=== PATIENT | female | born 1985 | race Caucasian/White ===

== ENCOUNTER 2024-06-02 11:13 | Outpatient (CLI) | payer OTHER, SELFPAY ==
--- NOTE | 2024-06-02 11:32 | ECG_ITS ---
Test Date: 2024-06-02 11:42:37 Measurements Intervals [place] Rate: 66 P: -24 MO: 131 QRS: 3 QRSD: 104 T: -3 QT: 402 QTc: 422 Interpretive Statements SINUS RHYTHM BORDERLINE R WAVE PROGRESSION, ANTERIOR LEADS BORDERLINE T WAVE ABNORMALITY- INFERIOR LEADS BORDERLINE ECG No previous ECG available for comparison Electronically Signed On 06-02-2024 12:57:03 CDT by Pedro Luis Almanzar D.O.
[2024-06-02 11:39] LABS: Hematocrit 38.7 % (37.0-47.0); Hemoglobin 12.6 g/dL (12.0-15.0); Mean Corpuscular HGB Conc 32.6 g/dl (32-36); Mean Corpuscular Hemoglobin 27.6 pg (26-34); Mean Corpuscular Volume 84.7 fl (80-100); Mean Platelet Volume 10.2 fl (7.4-10.4); Platelet Count Result 297 k/mm3 (150-375); Red Blood Count 4.57 M/mm3 (4.2-5.4); Red Cell Distribution Width 13.7 % (11.5-14.5); White Blood Count 7.3 K/mm3 (4.5-10.0)
[2024-06-02 11:42] LABS: Add Urine Microscopic? NO; Appearance Urine Clear (Clear); Bilirubin Urine Negative (Negative); Blood Urine Negative (Negative); Color Urine Yellow (Yellow); Glucose Urine UA Negative (Negative); Ketones Urine Negative (Negative); Leukocyte Esterase Ur Negative LEU/UL (Negative); Nitrate Urine Negative (Negative); Protein Urine Negative (Negative); Specific Grav Ur 1.009 (1.001-1.035); Urobilinogen Urine 0.2 mg/dL (<2.0)
[2024-06-02 11:59] LABS: Alanine Aminotransferase 25 U/L (6-35); Alkaline Phosphatase 41 U/L (38-126); Anion Gap 12 mmol/L (4-12); Aspartate Amino Transferase 27 U/L (14-36); Bilirubin,Total 0.2 mg/dL (0.2-1.3); Blood Urea Nitrogen 8 mg/dL (7-17); Calcium 9.1 mg/dL (8.4-10.2); Carbon Dioxide 22 mmol/L (22-30); Chloride 104 mmol/L (98-107); Estimated Glomerular Filt Rate > 60; Glucose 93 mg/dL (65-110); Potassium 3.7 mmol/L (3.4-5.0); Sodium 138 mmol/L (137-145)
[2024-06-02 12:05] LABS: Hemoglobin A1C 5.5 % (<5.7)
[2024-06-02 12:26] LABS: Syphilis IgG/IgM Antibody Negative (Negative)
[2024-06-02 12:28] LABS: Rubella IgG Antibody 13.2 IU/ML
--- OUTSIDE RECORDS SUMMARY | 2024-06-02 12:36 | XMS_ITS | Clinical Summary ---
Author Organization [facility] Address [facility] [place] [address] Care Team Providers Care Barnworker Groom Name Role Phone Garry Balbuena MD Primary Care Provider [phone] Red Castro MD Unavailable [phone] Allergies No known active allergies Medications ibuprofen 200 MG tabletIndication s:OTC Take 200 mg by mouth every 6 (six) hours as needed for Pain. Active Active Problems Problem Noted Date Diagnosed Date Trigger thumb of both hands 04/20/2019 Bilateral carpal tunnel syndrome 01/16/2018 Primary dysthymia 02/29/2016 Resolved Problems Problem Noted Date Diagnosed Date Resolved Date Fatigue 07/01/2013 04/20/2019 Palpitations 04/20/2019 Immunizations Immunization Administration Dates Next Due Influenza Adult (Generic) 11/17/2017(Deferred: P atient Refused) Family History Medical History Relation Comments Heart Disease Maternal Grandfather Hypertension Maternal Grandfather Heart Disease Maternal Grandmother Diabetes Paternal Grandmother Hypertension Paternal Grandmother Stroke Paternal Grandmother Relation Status Comments Father Alive Maternal Grandfather (Age 75) Maternal Grandmother (Age 75) Mother Alive Paternal Grandfather (Age 75) Paternal Grandmother (Age 76) Sister 1 Alive Sister 2 Alive Sister 3 Alive Social History Tobacco Use Types Packs/Day Years Used Date Smoking Tobacco: Never Smokeless Tobacco: Never Alcohol Use Standard Drinks/Week Comments Yes 0 (1 standard drink = 0.6 oz pur e alcohol) 3-6 Beers per week PHQ-2 Answer Date Recorded PHQ-2 Score 0 01/24/2019 Comments No Sex and Gender Information Value Date Recorded Sex Assigned at Not on file Legal Sex Female 7:57 PM CDT Gender Identity Not on file Sexual Orientation Not on file 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 Not on file Not on fi le Last Filed Vital Signs Vital Sign Reading Time Taken Comments Blood Pressure 112/82 04/20/2019 8:30 AM PICKER MACHINE OPERATOR Pulse 64 04/20/2019 8:30 AM PICKER MACHINE OPERATOR Temperature 36.4 C (97.6 F) 04/20/2019 8:30 AM PICKER MACHINE OPERATOR Respiratory Rate 18 04/20/2019 8:30 AM PICKER MACHINE OPERATOR Oxygen Saturation 100% 04/20/2019 8:30 AM PICKER MACHINE OPERATOR Inhaled Oxygen Concentration - - Weight 70.4 kg (155 lb 3.2 oz) 04/20/2019 8:30 A M PICKER MACHINE OPERATOR Height 162.6 cm (5' 4 ) 04/20/2019 8:30 AM PICKER MACHINE OPERATOR Body Mass Index 26.64 04/20/2019 8:30 AM PICKER MACHINE OPERATOR Plan of Treatment Health Maintenance Due Date Last Done Comments Cervical Cancer Screening Pa p Smear (Age 30 to 64) Every 3 Years 1985 Hepatitis C 2003 Hepatitis B Vaccines (1 of 3 - 19+ 3-dose series) 2004 Annual Physical 04/19/2020 04/20/2019 COVID-19 Vaccine ( - 2023-2 5 season) 2023 Cervical Cancer Screening Pa p with HPV Testing (Age 30 to 64) Every 5 Years 04/13/2025 04/13/2020 Cervical Cancer Screening with HPV 04/13/2025 DTaP, Tdap and Td Vaccines ( 1 - Tdap) 04/19/2025 Postponed from 03/31 (Awaiting Documentation) HPV Vaccines Aged Out No longer eligi ble based on patient's age to complete this topic Meningococcal B Vaccine Aged Out No l onger eligible based on patient's age to complete this topic Meningococcal Vaccine Aged Out No umm kacey eligible based on patient's age to complete this topic Pneumococcal Vaccine: Pediat rics (0 to 5 Years) and At-Risk Patients (6 to 49 Years) Aged Out No longer eligi ble based on patient's age to complete this topic RSV Immunizations Under 20 Months Aged Out No longer eligible based on patient's age to complete this topic Procedures Procedure Name Priority Date/Time Associated Diagnosis Comments OUTSIDE CYTOPATH CERV/VAG INTERPRET (PAP) 04/13/2020 from Last 3 Months or Most Recently Relevant to Health Maintenance Results * PAP SMEAR WITH HPV (04/13/2020) 04/13/2020 Narrative 04/13/2020 Ordered by an unspecified provider. us Documents Scanned SCANNING Final Result from Last 3 Months or Most Recently Relevant to Health Maintenance Insurance Care Teams Barnworker Groom Relationship Specialty Start Date End Date Garry Balbuena MD [address] [facility] [address] [place] [address] PCP - General FAMILY PRACTICE 01/14/18 Red Castro MD [facility]. [address] [place] [address] Churdan Java Lead Engineer CARDIOVASCULAR DISEASE 09/30/18
--- OUTSIDE RECORDS SUMMARY | 2024-06-02 12:36 | XMS_ITS | Referral Summary ---
Author Organization [facility] [address] Address [address] [place] [id number] Care Team Providers Care Flooring Installer Name Role Phone Donnie Anne MD Primary Care Provider [phone] Yasmany Toribio MD Unavailable [phone] Allergies No known active allergies Medications Pregnyl 10,000 unit injection 07/08/2022 Acti ve Isibloom 0.15-0.03 mg per tablet 07/21/2023 Activ e estradioL (ESTRACE) 2 mg tablet 06/12/2023 Active Menopur 75 unit recon soln 05/02/2023 Active Active Problems Problem Noted Date Diagnosed Date Well adult exam 10/12/2021 Assessment & Plan (10/13/2023 1:31 PM CDT): A(n) yearly well adult visit has been performed today. Kristi Cassidy is not up to date on screening tests. She is in need of hep b, c and Cholesterol screening. She is not up to date on needed preventative vaccinations; She is in need of Influenza. We discussed healthy lifestyle habits, educational material has been given. Medications reviewed, changes documented as per the medical record and discussed with patient along with risks vs benefits. Specific topics reviewed: drugs, ETOH, and tobacco, importance of regular dental care, importance of regular exercise, importance of varied diet, limit TV, media violence, minimize junk food, and seat belts. Return in 1 year Assessment & Plan (10/10/2022 1:23 PM CDT): A(n) yearly well adult visit has been performed today. Kristi Cassidy is not up to date on screening tests. She is in need of Cholesterol screening. She is not up to date on needed preventative vaccinations; She is in need of Covid-19 (booster). We discussed healthy lifestyle habits, educational material has been given. Medications reviewed, changes documented as per the medical record and discussed with patient along with risks vs benefits. Return in 1 year Assessment & Plan (10/12/2021 4:53 PM CDT): A(n) initial well visit to establish care has been performed today. Kristi Cassidy is up to date on screening tests. She is in need of None- no screening indicated at this time. She is not up to date on needed preventative vaccinations; She is in need of Tdap/Td. Injury of right shoulder 10/12/2021 Assessment & Plan (10/12/2021 4:53 PM CDT): PT and/or ortho if not improving Xray ordered Will consider MRI if not improving Naproxen PRN for inflammation; may use ice, heat, etc as adjuncts Rest from weight training for 2 weeks at least Trigger thumb of both hands 04/20/2019 Bilateral carpal tunnel syndrome 01/16/2018 Primary dysthymia 02/29/2016 Immunizations Immunization Administration Dates Next Due Influenza, Unspecified 10/10/2022(Deferr ed: Patient Refused),02/17/2022(Deferred: Patient Refused),02/17/2021(Deferred: Patient Refused) Tdap 08/02/2015 Social History Tobacco Use Types Packs/Day Years Used Date Smoking Tobacco: Never Smokeless Tobacco: Never Tobacco Cessation:Counseling Given: Not Answered AUDIT-C Answer Date Recorded Q1: How often do you have a drink containing alc ohol? 2-3 times a week 10/13/2023 Q2: How many drinks containi ng alcohol do you have on a typical day when you are drinking? 1 or 2 10/13/2023 Q3: How often do you have si x or more drinks on one occasion? Less than monthly 10/13/2023 PHQ-2 Answer Date Recorded PHQ-2 Total Score (If total score is 3 or more points, staff should administer the PHQ-9) 0 10/13/2023 Exercise Vital Sign Answer Date Recorde d On average, how many days pe r week do you engage in moderate to strenuous exercise (like a brisk walk)? 2 days 10/10/2021 On average, how many minutes do you engage in exercise at this level? 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 Not on file Last Filed Vital Signs Vital Sign Reading Time Taken Comments Blood Pressure 112/80 10/13/2023 1:18 PM CDT Pulse 75 10/13/2023 1:18 PM CDT Temperature 36.2 C (97.1 F) 10/13/2023 1:18 PM CDT Respiratory Rate 14 10/13/2023 1:18 PM CDT Oxygen Saturation 98% 10/13/2023 1:18 PM CDT Inhaled Oxygen Concentration - - Weight 81.6 kg (180 lb) 10/13/2023 1:18 PM CDT Height 162.6 cm (5' 4 ) 10/13/2023 1:18 PM CDT Body Mass Index 30.9 10/13/2023 1:18 PM CDT Plan of Treatment Not on file Procedures Procedure Name Priority Date/Time Associated Diagnosis Comments HEPATITIS C ANTIBODY Routine 10/13/2023 2:30 PM CDT Need for hepatitis C screening test HM PAP SMEAR WITH HPV Routine 04/13/2020 from Last 3 Months or Most Recently Relevant to Health Maintenance Results * Hepatitis C antibody Blood (10/13/2023 2:30 PM CDT) Hep C Ab Nonreactive Nonreactive Comment: Interpretive Data Nonreactive: Antibodies to HCV not detected. Does NOT exclude the possibility of recent exposure to HCV. Equivocal: Equivocal for HCV antibodies. Supplemental molecular testing will be automatically performed to determine infection status in accordance with current CDC screening recommendations. Reactive: Positive for HCV antibodies. This may represent current or past HCV infection. Supplemental molecular testing will be automatically performed to determine current infection status in accordance with current CDC screening recommendations. Interpretive data was last revised on 2019. Blood 10/13/2023 2:30 PM CDT 10/13/2023 9:03 PM CDT Donnie Anne MD LAB MICROBIOLOGY - GENERAL ORDERABLES Final Result Performing Organization Address City/[place] [address] [address] [place] [address] * HM PAP SMEAR WITH HPV (04/13/2020) Scribed Pap Smear w/HPV Normal Narrative Radha Guerrero MA - 04/13/2020 In care everywhere Historical Provider HEALTH MAINTENANCE Final Result from Last 3 Months or Most Recently Relevant to Health Maintenance Insurance CLAIMS [facility] CLAIMS Care Teams Flooring Installer Relationship Specialty Start Date End Date Donnie Anne MD [address] [place], [place] [id number] PCP - General Family Medicine 10/10/21 Yasmany Toribio MD [address] [facility] [address] [facility] [[email or web address] [address] [place], [place] [phone] Referring Physician Obstetrics and Gynecology 10/10/21
--- OUTSIDE RECORDS SUMMARY | 2024-06-02 12:36 | XMS_ITS | Encounter Summary ---
Author Organization [facility] Address [address] [place] [address] Care Team Providers Care Chief Data Officer Name Role Phone Bryant Saleh MD Primary Care Provider [phone] Garry Balbuena MD Primary Care Provider [phone] Red Castro MD Unavailable [phone] Encounter Details Date Type Department Care Team (Late st Contact Info) Description 11/07/2017 Abstract [facility] Family Medicine - [place] [address] [place] [id number] Garry Balbuena MD [address] [facility] [address] [place], [place] [id number] Social History Tobacco Use Types Packs/Day Years Used Date Smoking Tobacco: Never Assessed Comments Unknown Sex and Gender Information Value Date Recorded Sex Assigned at Not on file Legal Sex Female 7:57 PM CDT Gender Identity Not on file Sexual Orientation Not on file documented as of this encounter Plan of Treatment Not on file documented as of this encounter Visit Diagnoses Not on filedocumented in this encounter Care Teams Chief Data Officer Relationship Specialty Start Date End Date Bryant Saleh MD [address] [facility] [address] '[place], [place] [phone] PCP - General 02/22/16 01/13/18 Garry Balbuena MD [address] [facility] [address] [place] [address] PCP - General FAMILY PRACTICE 01/14/18 Red Castro MD [facility]. [address] [place], [place] [phone] Gabby Manager Investigations CARDIOVASCULAR DISEASE 09/30/18 documented as of this encounter
--- OUTSIDE RECORDS SUMMARY | 2024-06-02 12:36 | XMS_ITS | Continuity of Care Document ---
Author Organization [facility] Address [address] [place] [address] [place] [address] Phone Care Team Providers Care Equity Holder Name Role Phone Ricky Alfaro MD Unavailable Unavailable Allergies, Adverse Reactions, Alerts Substance Reaction Status Criticality No Known Allergies Active No Inform ation Medications Medication Instructions Dosage Effective Dates (start - stop) Status Comments No Drug Therapy Prescribed Procedures Procedure Date PREV VISIT, NEW, AGE 18-39 Advance Directives Directive Yes / No Effective Date File Name No Information Encounters Encounter Description Practice Location Reason(s) For Visit Diagnoses Date Provider Providers Copied on Encounter [facility], [address], [place], [place], [id number], [place] tel:[phone] [facility] No Information Dominic García. [address], [place], [place], [id number], [place]. tel:[phone] Referring Provider: Ricky Alfaro, [address], [place], [place], [id number]. tel:[phone] PREV VISIT, NEW, AGE 18-39 [facility], [address], [place], [place], [id number], [place] tel:[phone] [facility] Medicine Physical (chief complaint) Encntr for general adult medical exam w/o abnormal findings Dominic García. [address], [place], [place], [id number], [place]. tel:[phone] Referring Provider: Ricky Alfaro, [address], [place], [place], [id number]. tel:[phone] Family History Family Member Type Diagnosis Age At Onset Mother Problem (finding) Alive and well Sister Problem (finding) Alive and well Father Problem (finding) Alive and well Payers Payer name Insurance type Covered republican ID Authormisbah tinancy(s) No Information Social History Type Description Quantity Date Captured Comments Alcohol Use Details Unknown Caffeine Use Details Unknown Tobacco Use Status No Information Smoking Status No Information Sex Female Chief Complaint And Reason For Visit No Information Plan Of Treatment Date Type Action Status No Information History Of Present Illness Encounter Date Complaint History Of Prese nt Illness Physical Pt needs annual physical. her previous physician retired Pt needs to establish care Pt does not take meds and she is very healthy overall Pt does not have any active concern currenlty. Medications Administered Medication Instructions Dosage Effective Dates (start - stop) Status Comments No Drug Therapy Prescribed Instructions Date Instruction Additional Infor mation Prescribed Activity and Exercise Education Related to Dietary Surveillance and Counseling Prescribed Diet Educ ation/Lifestyle Education Regarding Diet Related to Dietary Surveillance and Counseling Perform monthly self breast examinations. Related to Encntr for general adult medical exam w/o abnormal findings Increase activity. Related to En cntr for general adult medical exam w/o abnormal findings Assessments Type Assessment Date No Information
--- OUTSIDE RECORDS SUMMARY | 2024-06-02 12:36 | XMS_ITS | Clinical Summary ---
Author Organization 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 [address] Address [address] [place] [address] Care Team Providers Care Box Blank Machine Operator Helper Name Role Phone Donnie Anne MD Primary Care Provider [phone] Yasmany Toribio MD Unavailable [phone] Allergies No known active allergies Medications Pregnyl [...] Refused),02/17/2022(Deferred: Patient Refused),02/17/2021(Deferred: Patient Refused) Tdap 08/02/2015 Surgical History Surgery Date Site/Laterality Comments CARPAL TUNNEL RELEASE 02/17/2018 - 02/16/2019 Bilateral Family History Medical History Relation Name Comments No Known Problems Father Heart disease Maternal Grandfather Coronary artery disease Maternal Grandmother Heart disease Maternal Grandmother No Known Problems Mother Diabetes Paternal Grandfather Diabetes Paternal Grandmother No Known Problems Sister 1 No Known Problems Sister 2 No Known Problems Sister 3 Relation Name Status Comments Father Alive Maternal Grandfather Maternal Grandmother Mother Alive Paternal Grandfather Paternal Grandmother Sister 1 Alive Sister 2 Alive Sister [...] file Not on file Not on file Obstetrics History Last Filed Vital Signs Vital Sign Reading [...] 10/13/2023 1:18 PM CDT Plan of Treatment Health Maintenance Due Date Last Done Comments Cervical Cancer Screening 04/13/2021 04/13/2020 Covid-19 Vaccine (2023-03 5 season) 2023 09/18/2020, 08/27/2020 Depression Screening 10/12/2024 10/13/2023, 10/10/2022, 10/10/2021 Regular Well Visit/Exam 18-64 10/12/2024, 10/10/2022, 10/10/2021 Varicella Vaccines (1 of 2 - 13+ 2-dose series) 10/12/2024 Postponed from 03/31 (Patient declined, but will receive in the future) Influenza Vaccine (Season Ended) 2024 DTaP/Tdap/Td Vaccine (2 - Td or Tdap) 08/01/2025 08/02/2015 Hepatitis B Screening Completed 10/13/2023 Hepatitis C Screening Completed 10/13/2023 HPV Vaccines Aged Out No longer eligi ble based on patient's age to complete this topic Pneumococcal vaccine <65 Aged Out No longer eligible based on [...] 2:30 PM CDT 10/13/2023 9:03 PM CDT us Donnie Anne MD LAB MICROBIOLOGY - GENERAL ORDERABLES Final Result Performing Organization Address City/State/ZIP [place] Phone Number [place] [phone] [address] [place] [address] * PAP SMEAR WITH HPV (04/13/2020) Scribed Pap Smear w/HPV Normal Narrative Radha Guerrero MA - 04/13/2020 In care everywhere us Historical Provider HEALTH MAINTENANCE Final Result from Last 3 Months or Most Recently Relevant to Health Maintenance Insurance CLAIMS CLAIMS Care Teams Box Blank Machine Operator Helper Relationship Specialty Start Date End Date Donnie Anne MD [address] [place] [address] PCP - General Family Medicine 10/10/21 Yasmany Toribio MD [address] [facility] [address] [facility] [address] [place], [place] [phone] Referring Physician Obstetrics and Gynecology 10/10/21
--- OUTSIDE RECORDS SUMMARY | 2024-06-02 12:36 | XMS_ITS | Clinical Summary ---
Author Organization [facility] Address [address] [place] [address] Care Team Providers Care Buildings And Grounds Director Name Role Phone [facility], [address] [place] [address] Primary Care Prov ider Unknown, Provider Unavailable Unavailable Source Comments [facility],non-owned Affiliates and Associated Physician Practices is amultiple site organization consisting of ambulatory clinics and hospital sitesin [place] and [place]. This disclosure is being madepursuant to the Care Everywhere program and may not contain all information available regarding this patient. Last updated 17.[facility] Allergies No known active allergies Medications * Be aware that medications may not be up to date on this document. Alwaysverify current medications with the patient. No known medications Active Problems No known active problems Social History Tobacco Use Types Packs/Day Years Used Date Smoking Tobacco: Never Smokeless Tobacco: Never Comments No Sex and Gender Information Value Date Recorded Sex Assigned at Not on file Legal Sex Female 11:53 AM FIRE ENGINE OPERATOR Gender Identity Not on file Sexual Orientation Not on file Last Filed Vital Signs Vital Sign Reading Time Taken Comments Blood Pressure 130/80 06/05/2020 3:02 PM CDT Pulse 68 06/05/2020 3:02 PM CDT Temperature 36.7 C (98 F) 06/05/2020 3:02 PM CDT Respiratory Rate 20 06/05/2020 3:02 PM CDT Oxygen Saturation 99% 02/09/2017 3:06 PM FIRE ENGINE OPERATOR Inhaled Oxygen Concentration - - Weight 65.8 kg (145 lb) 02/09/2017 3:06 PM FIRE ENGINE OPERATOR Height 160 cm (5' 3 ) 02/09/2017 3:06 PM FIRE ENGINE OPERATOR Body Mass Index 25.69 02/09/2017 3:06 PM FIRE ENGINE OPERATOR Plan of Treatment Health Maintenance Due Date Last Done Comments HIV SCREENING 2000 HEPATITIS C SCREENING 03/27/2003 DTAP/TDAP/TD VACCINES (1 - Tdap) 2004 HEPATITIS B VACCINE (1 of 3 - 19+ 3-dose series) 2004 COVID-19 VACCINE (1 - 2023-2 5 season) 2023 DEPRESSION SCREENING 02/18/2024 INFLUENZA VACCINE (Season Ended) 2024 ZOSTER VACCINE (1 of 2) 2035 HIB VACCINE Aged Out No longer eligi ble based on patient's age to complete this topic HPV VACCINE Aged Out No longer eligi ble based on patient's age to complete this topic MENINGOCOCCAL (Group B) VACC INE SHARED DECISION-MAKING Aged Out No longer eligibl e based on patient's age to complete this topic MENINGOCOCCAL GROUPS A/C/Y/W VACCINE Aged Out No longer eligible b ased on patient's age to complete this topic PNEUMOCOCCAL VACCINE Aged Out No long er eligible based on patient's age to complete this topic Insurance [employer] Care Teams Buildings And Grounds Director Relationship Specialty Start Date End Date [address] [facility] [address] [place] [address] PCP - General Family Medicine 02/09/17 Unknown, Provider [address] [place] [address] 02/09/17
--- OUTSIDE RECORDS SUMMARY | 2024-06-02 12:36 | XMS_ITS | Continuity of Care Document ---
Author Name [facility] Organization [facility] Care Team Providers Care Community Health Planning Director Name Role Phone [facility] Unavailable Unavailable Problems Combined list of problems from [facility] and [facility] facilities. It does not include entries that were removed or entered in error. Problem Status Onset Date Problem Type Date of Resolution Comments Source Pain of right shoulder joint Active 4 Diagnosis [facility] Aisha Somatic dysfunction of cervical region Active 4 Diagnosis [facility] Aisha Somatic dysfunction of lumbar region Active [address] [place] [address] Aisha Cervicalgia Active 4 Diagnosis 002-[facility] [place] Headache Active [address] [place] [address] [place] Somatic dysfunction of thoracic region Active 4 Diagnosis 002-[facility] [place] Cervicalgia Active 4 Diagnosis 002-[facility] [place] Headache Active [address] [place] [address] [place] Cervicalgia Active Condition [address] [place] [address] [place] Headache Active Condition [address] [place] [address] [place] Pain in right shoulder Active Diagnosis 0024A-[facility] [place] Personal history of other diseases of the musculoskeletal system and connective tissue Active Diagnosis 0024A-[facility] [place] Activity, free weights Active Diagnosis [address] [place] [address] [place] Medications Combined list of outpatient medications from [facility] and [facility] facilities.Medications provided include 1) outpatient medications from the last 15 months, and 2) patient-reported medications. Medication Details Route Status Patient Instructions Prescription Expires Prescription Number Last Dispense Date Ordering Provider Order Date Order Qty Source ibuprofen 800 mg oral tablet 1 tab(s), Oral, TID, # 90 tab(s), 0 total refill(s ), Acute, 08/12/24 2:00:00 AM CDT, Pharmacy : [facility] Oral (given by mouth) Ordered 08/12/2024 4 2023 [facility] oral [facility] 2 tab(s), Oral, QID, X 7 days, # 56 tab(s), 0 total refill(s ), Acute, Pharmacy : [facility] Oral (given by mouth) Complet ed 07/31/2023 4 2023 56.0 0024C-N [facility] on Results Combined list of recent chemistry, hematology and other laboratory results from [facility] and [facility], ranging from 15 months to all on record, depending upon the facility. Order Name Results Value Reference Range Date Interpretation Specimen Comments Source Chemistry POC U HCG Negative (07/31/23 11:58 AM) 07/[address] [place] [address] Vital Signs Combined list of inpatient and outpatient Vital Signs from [facility] and [facility], ranging from 12 months to all on record, depending upon the facility. Vital Sign Value Date Comments Source BP Site Right arm 07/24/2023 15:03:[address] [place] [address] [place] Mean Arterial Pressure, Calc 106 mm[Hg] 07/24/2023 15:03:[address] [place] [address] [place] Respiratory Rate 14 br/min 07/24/2023 15:03:[address] [place], [place] [address]on Blood Pressure Manual Automatic 07/24/2023 15:03:[address] [place] [address] [place] Peripheral Pulse Rate 91 bpm 07/24/2023 15:03:[address] [place] [address] Aisha Systolic Blood Pressure 137 mm[Hg] 07/24/19 24 15:03:[address] [place], [place] [address]on Diastolic Blood Pressure 91 mm[Hg] 024 15:03:[address] [place] [address] Aisha Temperature Oral 36.7 Nereida 07/24/2023 15:03:[address] [place] [address] [place] Peripheral Pulse Rate 85 bpm 07/31/2023 17:34:00 [facility] Aisha Systolic Blood Pressure 142 mm[Hg] 07/31/19 24 17:34:[address] [place] [address] [place] Diastolic Blood Pressure 90 mm[Hg] 024 17:34:[address] [place] [address] [place] Temperature Oral 36.6 Nereida 07/31/2023 17:34:[address] [place] [address] Aisha Respiratory Rate 18 br/min 07/31/2023 17:34:[address] [place] [address] [place] Mean Arterial Pressure, Calc 97 mm[Hg] 07/29/2023 15:16:[address] [place] [address] [place] BP Site Left arm 07/29/2023 15:16:[address] [place] [address] Aisha Temperature Oral 36.7 Nereida 07/29/2023 15:16:[address] [place] [address] [place] Peripheral Pulse Rate 74 bpm 07/29/2023 15:16:[address] [place] [address] Blood Pressure Manual Automatic 07/29/2023 15:16:[address] [place] [address] Aisha Systolic Blood Pressure 129 mm[Hg] 07/29/19 24 15:16:[address] [place] [address] Aisha Diastolic Blood Pressure 81 mm[Hg] 024 15:16:[address] [place] [address] Respiratory Rate 16 br/min 07/29/2023 15:16:[address] [place] [address] [place] Encounters Combined list of: 1) Encounters from [facility] facilities going backup to the last 18 months, not all VA inpatient encounters are included; 2) Encounters from the Department [facility] facilities going backup to 280 months. Location Location Details Encounter Type Encounter Number Reason For Visit Attending Provider ADM Date DC Date Status Disposition Source [address] [place] [address] Clinic [id number] Cervica lgia,He adache, unspeci fied FRANCIE LAMONTDAVE NPORT 07/23 Discharge Disposition: Home or Self Care [facility] [address] [place] [address] Clinic [id number] Segment al and somatic dysfunc tion of cervica l region, Segment al and somatic dysfunc tion of lumbar region, Cervica lgia,He adache, unspeci fied,Se gmental and somatic dysfunc tion of thoraci c region RK TEIXEIRA 07/28 Discharge Disposition: Home or Self Care [facility] Emergency [id number] Pain in right shoulde r,Perso nal history of other disease s of the musculo skeleta l system and connect cain tissue, Activit y, free weights ,Pain in right shoulde r CLAY ANNPARALES 07/30 Discharge Disposition: Home or Self Care [facility] [facility] Procedures Combined list of: 1) Procedures from [facility] facilities going back up to thelast 18 months, not all MD non-surgical procedures are included; 2) All procedures from the Department of Defense facilities. Procedure Procedure Type Code Date Perfomer Comments Sourc e No data available for this section Ambulatory P harmacy Social History Combined list of available smoking, tobacco, and other social history from Department of Defense and Veterans [facility] facilities. Social History Type Response Date Comment Sourc e Sex Representation Female (finding) 03/10/2023 Unknown Organization Sexual Orientation Ambula tory Pharmacy Gender identity Ambulator y Pharmacy Assessment and Plan Combined list of future care activities from Department of Defense and Veterans Affairs facilities (e.g., assessment and plan notes, appointments, orders, and referrals). Additional future care activities may be listed in the Plan of Care section. Result Assessment and Plan Date Source Assessment and Plan Extracted from:Title : [facility] TIGRE, C.O.D. CLERK Author: RK DONALDSON L Ac Date: 07/31/23 1. C ervicalgia Decreased tension and p ain post tx. Will monitor for intensity and severity. No N&T noted. 2. H eadache Reduced p ain and intensity p ost tx. Will monitor for intensity and severity. 3. S omatic dysfunction of cervical region Increased ROM and relief of stiffness post tx. 4. S omatic dysfunction of thoracic region Increased ROM and relief of stiffness post tx. 5. S omatic dysfunction of lumbar region Increased ROM and relief of stiffness post tx. Follow Up Plan: 2x/week for 1 w eeks, then 1x/week for 3-4 weeks. Patient tolerated the procedure well. Acupuncture and Chiropractic counseling was performed. All questions and concerns were answered at the time of the appointment. Everyday Exercises (unless otherwise stated): ROM Stretching Recommendations: Hydration- 1 L of water post treatment and half body weight (lbs) in ounces daily minimum. Heat only today. Ice and/or Heat pack as needed for pain or soreness over following days. Pt was told of possible side effects such as flare up of symptoms, local bleeding at the time of needling, bruising, o r soreness over the next few days. Sleep with additional pillows for side and back sleeping. Suggested use of cervical pillow. Extracted from:Title: Ambulatory Patient Education Author: RK DONALDSON L Ac Date: 07/29/23 Neurology Chronic Migraine Headache A migraine headache is throbbing pain that is usually on one side of the head. It can also cause other symptoms. A migraine is called a chronic migraine if it happens at least 15 days in a month for more than 3 months. Talk with your doctor about what things may bring on (trigger) your migraines. What are the causes? The exact cause of a migraine is not known. This condition may be brought on or caused by: Smoking. Some medicines, such as control or some blood pressure medicines. Certain substances in some foods or drinks. Foods and drinks, such as: Cheese. Chocolate. Alcohol. Caffeine. Other things that may bring on a migraine include: Periods. Stress. Getting too much or too little sleep. Feeling tired (fatigue). Bright lights or loud noises. Certain smells. Weather changes and being at high altitude. What increases the risk? The following factors may make you more likely to have chronic migraines: Having migraines or family members who have them. Having a mental health condition, such as being sad (depressed) or feeling worried or nervous (anxious). Taking a lot of pain medicine. Having sleep problems. Having heart disease, diabetes, or being very overweight (obese). What are the signs or symptoms? Symptoms vary for each person. The pain may: Feel like it is pulsing or throbbing. Happen only on one side of the head. In some cases, the pain may be on both sides of the head or around the head or neck. Be so bad that it keeps you from doing daily activities. Get worse with activity. Make you feel like you may vomit (feel nauseous) or vomit. Get worse around bright lights, loud noises, or smells. Cause you to feel dizzy. A sign that you may have chronic migraines is when you start to have more and more migraines. How is this treated? This condition is treated with medicines that: Lessen pain and the feeling like you may vomit. Prevent migraines. Treatment may also include: Acupuncture. Changes to your diet or sleep. Relaxation training. Learning ways to control your body and breathing (biofeedback). Talk therapy to help you know and deal with negative thoughts (cognitive behavioral therapy). Using a device that gives electrical stimulation to your nerves, which can help take away pain. A shot of medicine into the muscles of the face or head. Surgery, if the other treatments do not work. Follow these instructions at home: Medicines Take [id number] and prescription medicines only as told by your doctor. Ask your doctor if the medicine prescribed to you requires you to avoid driving or using machinery. Lifestyle Do not drink alcohol. Do not smoke or use any products that contain nicotine or tobacco. If you need help quitting, ask your doctor. Get 7-9 hours of sleep every night, or the amount of sleep recommended by your doctor. Lower the stress in your life. Ask your doctor about ways to do this. Stay at a healthy weight. Talk with your doctor if you need help losing weight. Get regular exercise. General instructions Keep a journal to find out if certain things bring on migraines. This can help you avoid those things. For example, write down: What you eat and drink. How much sleep you get. Any change to your diet or medicines. Lie down in a dark, quiet room when you have a migraine. Try placing a cool towel over your head when you have a migraine. Keep lights dim if bright lights bother you or make your migraines worse. Where to find more information Coalition for Headache and Migraine Patients (CHAMP): headachemigraine.org Spanish Migraine Foundation: americanmigrainefoundation.or g National Headache Foundation: headaches.org Contact a doctor if: Medicine does not help your migraine. Your pain keeps coming back even with medicine. Get help right away if: Your migraine becomes really bad and medicine does not help. You have a fever or stiff neck. You have trouble seeing. Your muscles are weak or you lose control of them. You lose your balance or have trouble walking. You feel like you may faint or you faint. You start having sudden, very bad headaches. You have a seizure. This information is not intended to replace advice given to you by your health care provider. Make sure you discuss any questions you have with your health care provider. Document Revised: 09/30/2022 Document Reviewed: 09/30/2022 [employer] Patient Education 2023 [employer]. General Headache Without Cause A headache is pain or discomfort you feel around the head or neck area. There are many causes and types of headaches. In some cases, the cause may not be found. Follow these instructions at home: Watch your condition for any changes. Let your doctor know about them. Take these steps to help with your condition: Managing pain Take hajv-fam-mhoxflq and prescription medicines only as told by your doctor. This includes medicines for pain that are taken by mouth or put on the skin. Lie down in a dark, quiet room when you have a headache. If told, put ice on your head and neck area: Put ice in a plastic bag. Place a towel between your skin and the bag. Leave the ice on for 20 minutes, 2 3 times per day. Take off the ice if your skin turns bright red. This is very important. If you cannot feel pain, heat, or cold, you have a greater risk of damage to the area. If told, put heat on the affected area. Use the heat source that your doctor recommends, such as a moist heat pack or a heating pad. Place a towel between your skin and the heat source. Leave the heat on for 20 3 0 minutes. Take off the heat if your skin turns bright red. This is very important. If you cannot feel pain, heat, or cold, you have a greater risk of getting burned. Keep lights dim if bright lights bother you or make your headaches worse. Eating and drinking Eat meals on a regular schedule. If you drink alcohol: Limit how much you have to: 0 1 drink a day for women who are not . 0 2 drinks a day for men. Know how much alcohol is in a drink. In the [place] one drink equals one 12 oz bottle of beer (355 mL), one 5 oz glass of wine (148 mL), or one 1 oz glass of hard liquor (44 mL). Stop drinking caffeine, or drink less caffeine. General instructions Keep a journal to find out if certain things bring on headaches. For example, write down: What you eat and drink. How much sleep you get. Any change to your diet or medicines. Get a massage or try other ways to relax. Limit stress. Sit up straight. Do not tighten (tense) your muscles. Do not smoke or use any products that contain nicotine or tobacco. If you need help quitting, ask your doctor. Exercise regularly as told by your doctor. Get enough sleep. This often means 7 9 hours of sleep each night. Keep all follow-up visits. This is important. Contact a doctor if: Medicine does not help your symptoms. You have a headache that feels different than the other headaches. You feel like you may vomit (nauseous) or you vomit. You have a fever. Get help right away if: Your headache: Gets very bad quickly. Gets worse after a lot of physical activity. You have any of these symptoms: You continue to vomit. A stiff neck. Trouble seeing. Your eye or ear hurts. Trouble speaking. Weak muscles or you lose muscle control. You lose your balance or have trouble walking. You feel like you will pass out (faint) or you pass out. You are mixed up (confused). You have a seizure. These symptoms may be an emergency. Get help right away. Call your local emergency services (911 in the [place] Do not wait to see if the symptoms will go away. Do not drive yourself to the hospital. Summary A headache is pain or discomfort that is felt around the head or neck area. There are many causes and types of headaches. In some cases, the cause may not be found. Keep a journal to help find out what causes your headaches. Watch your condition for any changes. Let your doctor know about them. Contact a doctor if you have a headache that is different from usual, or if medicine does not help your headache. Get help right away if your headache gets very bad, you throw up, you have trouble seeing, you lose your balance, or you have a seizure. This information is not intended to replace advice given to you by your health care provider. Make sure you discuss any questions you have with your health care provider. Document Revised: 07/04/2021 Document Reviewed: 07/04/2021 [employer] Patient Education 2023 [employer]. Orthopedics Neck Exercises Ask your health care provider which exercises are safe for you. Do exercises exactly as told by your health care provider and adjust them as directed. It is normal to feel mild stretching, pulling, tightness, or discomfort as you do these exercises. Stop right away if you feel sudden pain or your pain gets worse. Do not begin these exercises until told by your health care provider. Neck exercises can be important for many reasons. They can improve strength and maintain flexibility in your neck, which will help your upper back and prevent neck pain. Stretching exercises Rotation neck stretching 1. Sit in a chair or stand up. 2. Place your feet flat on the floor, shoulder-width apart. 3. Slowly turn your head (rotate) to the right until a slight stretch is felt. Turn it all the way to the right so you can look over your right shoulder. Do not tilt or tip your head. 4. Hold this position for 10#30 seconds. 5. Slowly turn your head (rotate) to the left until a slight stretch is felt. Turn it all the way to the left so you can look over your left shoulder. Do not tilt or tip your head. 6. Hold this position for 10#30 seconds. Repeat 10-15 times. Complete this exercise 2 times a day. Neck retraction 1. Sit in a sturdy chair or stand up. 2. Look straight ahead. Do not bend your neck. 3. Use your fingers to push your chin backward (retraction). Do not bend your neck for this movement. Continue to face straight ahead. If you are doing the exercise properly, you will feel a slight sensation in your throat and a stretch at the back of your neck. 4. Hold the stretch for 1#2 seconds. Repeat 10-15 times. Complete this exercise 2 times a day Strengthening exercises Neck press 1. Lie on your back on a firm bed or on the floor with a pillow under your head. 2. Use your neck muscles to push your head down on the pillow and straighten your spine. 3. Hold the position as well as you can. Keep your head facing up (in a neutral position) and your chin tucked. 4. Slowly count to 5 while holding this position. Repeat 10-15 times. Complete this exercise 2 times a day Isometrics These are exercises in which you strengthen the muscles in your neck while keeping your neck still (isometrics). 1. Sit in a supportive chair and place your hand on your forehead. 2. Keep your head and face facing straight ahead. Do not flex or extend your neck while doing isometrics. 3. Push forward with your head and neck while pushing back with your hand. Hold for 10 seconds. 4. Do the sequence again, this time putting your hand against the back of your head. Use your head and neck to push backward against the hand pressure. 5. Finally, do the same exercise on either side of your head, pushing sideways against the pressure of your hand. Repeat -15 times. Complete this exercise 2 times a day Prone head lifts 1. Lie face-down (prone position), resting on your elbows so that your chest and upper back are raised. 2. Start with your head facing downward, near your chest. Position your chin either on or near your chest. 3. Slowly lift your head upward. Lift until you are looking straight ahead. Then continue lifting your head as far back as you can comfortably stretch. 4. Hold your head up for 5 seconds. Then slowly lower it to your starting position. Repeat 10-15 times. Complete this exercise 2 times a day Supine head lifts 1. Lie on your back (supine position), bending your knees to point to the ceiling and keeping your feet flat on the floor. 2. Lift your head slowly off the floor, raising your chin toward your chest. 3. Hold for 5 seconds. Repeat 10-15 times. Complete this exercise 2 times a day Scapular retraction 1. Stand with your arms at your sides. Look straight ahead. 2. Slowly pull both shoulders (scapulae) backward and downward (retraction) until you feel a stretch between your shoulder blades in your upper back. 3. Hold for 10#30 seconds. 4. Relax and repeat. Repeat 10-15 times. Complete this exercise 2 times a day Contact a health care provider if: # Your neck pain or discomfort gets worse when you do an exercise. # Your neck pain or discomfort does not improve within 2 hours after you exercise. If you have any of these problems, stop exercising right away. Do not do the exercises again unless your health care provider says that you can. Get help right away if: # You develop sudden, severe neck pain. If this happens, stop exercising right away. Do not do the exercises again unless your health care provider says that you can. This information is not intended to replace advice given to you by your health care provider. Make sure you discuss any questions you have with your health care provider. Document Revised: 07/31/2021 Document Reviewed: 07/31/2021 [employer] Patient Education # 2023 [employer]. Extracted from:Title: Office Clinic Note Author: FRANCIE ORTIZ PA Date: 07/24/23 1. H eadache Headaches - most consistent with tension headaches. Unlikely cluster headaches. No firm evidence to suggest neoplastic, vascular, or infectious process. Headaches are unlikely from withdrawal of caffeine products, Midrin, or other substances. U nremarkable neuro exam. N o indication for imaging at this point. - Ibuprofen 800 mg 1 tab p.o. 4 times daily status. - Methocarbamol 500 mg 2 tabs p.o. 4 times daily/. - Return to clinic if symptoms persist - Patient has access to [facility] or[facility] o r given QRS code t o view n ormal labs.? Informed patient that I will call them only if t here are a bnormalities i n labs o r i maging. - Patient indicated understanding, agreed to plan of care and all questions and concerns addressed. 2. C ervicalgia Chronic and persistent, no worrisome symptoms for instability, infection or diffuse joint symptoms. Likely mild scoliosis and muscle spasm. DDD may be contributing to symptoms. - Ibuprofen 800 mg 1 tab p.o. 3 times daily/PRN - Methocarbamol 5 00 mg 2 tabs p.o. 4 times daily/as needed - Discussed rest, ice, h eat - Message sent to acupuncture and Chiropractor placed for muscle spasm relief and manipulation - Pt to follow up in one month or earlier if symptoms worsen - Patient has access to [facility] or[facility] o r given QRS code t o view n ormal labs.? Informed patient that I will call them only if t here are a bnormalities i n labs o r i maging. - Patient indicated understanding, agreed to plan of care and all questions and concerns addressed. Orders: ibuprofen(ibuprofen 800 mg oral tablet), 1 tab(s), Oral, TID, # 90 tab(s), 0 total refill(s), Acute, 08/12/2024, 1 tab(s) Oral TID, Pharmacy: [facility] [Not filled] methocarbamol(Robaxin 500 mg oral tablet), 2 tab(s), Oral, QID, X 7 days, # 56 tab(s), 0 total refill(s), Acute, 2 tab(s) Oral QID,x7 days, Pharmacy: [facility] [Not filled] LCDR Francie Ortiz PA-C Staff Family Medicine [facility] 06/02/2024 0024[facility] Center Functional Status Combined list of recent functional and cognitive assessments recorded at Department of Defense and Veterans Affairs (VA).VA Functional [place] Measurement (FIM) Scale: 1 = Total Assistance (Subject = 0% +), 2 = Maximal Assistance (Subject = 25% +), 3 = Moderate Assistance (Subject = 50% +), 4 = Minimal Assistance (Subject = 75% +), 5 = Supervision, 6 = Modified [place] (Device), 7 = Complete [place] (Timely, Safely). Assessment Date/Time Source Assessment Type Assessment Skill Assessment Score Assessment Details No data available for this section
[2024-06-02 12:39] LABS: HIV 1/2 Ab P24 Ag Result Negative (Negative)
[2024-06-02 13:57] LABS: Hepatitis B Surface Anti Res Positive; Hepatitis C Virus Antibody Negative (Negative)
[2024-06-03 20:33] LABS: Hematocrit 39.3 % (35.0-45.0); Hemoglobin 12.9 g/dL (11.7-15.5); MCH 27.6 pg (27.0-33.0); RDW 13.6 % (11.0-15.0); Red Blood Cell Count 4.68 Million/uL (3.80-5.10)
[2024-06-04 05:05] LABS: Varicella IgG Antibody 5.76 S/CO
== END 2024-06-02 11:14 | disposition home or self-care (01) ==
PROVIDERS: Visit Provider Obstetrics & Gynecology
DX: Z34.90 Encounter for supervision of normal pregnancy, unspecified, unspecified trimester (principal); I10 Essential (primary) hypertension; Z3A.00 Weeks of gestation of pregnancy not specified
CPT/HCPCS: 36415; 80053; 81003; 83021; 83036; 84443; 85027; 86593; 86703; 86706; 86762; 86787; 86803; 86850; 86900; 86901; 87086; 93005; G0432

== ENCOUNTER 2024-06-21 07:59 | Outpatient (CLI) | payer OTHER, SELFPAY ==
--- OUTSIDE RECORDS SUMMARY | 2024-06-21 08:07 | XMS_ITS | Clinical Summary ---
Author Organization [facility] Address [address] [place] [address] Care Team Providers Care Grease Monkey Name Role Phone [facility], [address] [place] [address] Primary Care Prov ider Unknown, Provider Unavailable Unavailable Source Comments [facility],non-owned Affiliates and Associated Physician Practices is amultiple site organization consisting of ambulatory clinics and hospital sitesin [place], [place], [place] and [place]. This disclosure is being madepursuant to the Care Everywhere program and may not contain all information available regarding this patient. Last updated 17.[facility] Allergies No known active allergies Medications * [...] on file Legal Sex Female 11:53 AM GROUP LEADER Gender Identity Not on file Sexual Orientation Not on file Last Filed Vital Signs Vital Sign Reading Time Taken Comments Blood Pressure 130/80 06/05/2020 3:02 PM CDT Pulse 68 06/05/2020 3:02 PM CDT Temperature 36.7 C (98 F) 06/05/2020 3:02 PM CDT Respiratory Rate 20 06/05/2020 3:02 PM CDT Oxygen Saturation 99% 02/09/2017 3:06 PM GROUP LEADER Inhaled Oxygen Concentration - - Weight 65.8 kg (145 lb) 02/09/2017 3:06 PM GROUP LEADER Height 160 cm (5' 3 ) 02/09/2017 3:06 PM GROUP LEADER Body Mass Index 25.69 02/09/2017 3:06 PM GROUP LEADER Plan of Treatment Health Maintenance Due Date [...] patient's age to complete this topic Insurance [employer] Care Teams Grease Monkey Relationship Specialty Start Date End Date [address] [facility] [address] [place] [address] PCP - General Family Medicine 02/09/17 Unknown, Provider [address] [place] [address] 02/09/17
--- OUTSIDE RECORDS SUMMARY | 2024-06-21 08:07 | XMS_ITS | Continuity of Care Document ---
Author Name [facility] Organization [facility] Care Team Providers Care Lead Housekeeper Name Role Phone [facility] Unavailable Unavailable Problems Combined list of problems from Department of Defense and Veterans Affairs facilities. It does not include entries that were removed or entered in error. Problem Status Onset Date Problem Type Date of Resolution Comments Source Pain of right shoulder joint Active 4 Diagnosis 0024A-[facility] [place] Somatic dysfunction of cervical region Active 4 Diagnosis 0024C-[facility] [place] Somatic dysfunction of lumbar region Active 4 Diagnosis 002-[facility] [place] Cervicalgia Active 4 Diagnosis 0024C-[facility] [place] Headache Active 4 Diagnosis 002-[facility] [place] Somatic dysfunction of thoracic region Active 4 Diagnosis 002-[facility] [place] Cervicalgia Active 4 Diagnosis [facility]24[facility] [place] Headache Active 4 Diagnosis 0024C-[facility] [place] Cervicalgia Active Condition [address] [place] [address] [place] Headache Active Condition 0024C-[facility] [place] visit: ears/hearing exam for hearing conservation, treatment Inactive Condition [facility] visit for: services physical Active Condition [facility] Vaccines Prophylactic Need Against DTP Inactive Condition [facility] visit for: services commissioning physical Active Condition DoD Pain in right shoulder Active Diagnosis 0024A-[facility] [place] Personal history of other diseases of the musculoskeletal system and connective tissue Active Diagnosis 0024A-[facility] [place] Activity, free weights Active Diagnosis [facility] Medications Combined list of outpatient medications from Department of Defense and Veterans Affairs facilities.Medications provided include 1) outpatient medications from the last 15 months, and 2) patient-reported medications. Medication Details Route Status Patient Instructions Prescription Expires Prescription Number Last Dispense Date Ordering Provider Order Date Order Qty Source Ibuprofen (Motrin) Tablet 800 mg Oral Take with food/mil k.Take or use exactly as directed .Obtain advice for OTCs.May cause drowsine ss/dizzi ness.Do not take if . Active 07/23/2024 [id number] 4 2023 90 [facility] [place] ibuprofen 800 mg oral tablet 1 tab(s), Oral, TID, # 90 tab(s), 0 total refill(s ), Acute, 08/12/24 2:00:00 AM CDT, Pharmacy : [facility] Oral (given by mouth) Ordered 08/12/2024 4 2023 90.0 0024C[facility] methocarbam ol (U/D) 500 MG ORAL TAB May cause drowsine ss. Active 07/23/2024 [id number] 4 2023 56 [facility], [place] Robaxin 500 mg oral tablet 2 tab(s), Oral, QID, X 7 days, # 56 tab(s), 0 total refill(s ), Acute, Pharmacy : [facility] Oral (given by mouth) Complet ed 07/31/2023 4 2023 56.0 0024C[facility] Allergies, Adverse Reactions, Alerts Combined list of allergies from Department of Defense and Veterans Affairs facilities. It does not include entries that were removed or entered in error. Substance Category Reaction Severity Reaction type Status Date Reported Comments Source No Known Allergies Drug allergy (disorder) active 07/24/2023 [facility] [place], [place] Immunizations Combined list of available immunizations from the Department of Defense and Veterans Affairs facilities. Immunization Series Date Given Administered By Site Reaction Lot Number CVX Code Drug Facing Machine Operator Status Comments Source COVID-19, mRNA, LNP-S, PF, 30 mcg/0.3 mL dose 2020 [employer] [place] (PFR) Not Given COVID-19, mRNA, LNP-S, PF, 30 mcg/0.3 mL dose [facility] COVID-19, mRNA, LNP-S, PF, 30 mcg/0.3 mL dose 2020 [employer] [place] (PFR) Not Given COVID-19, mRNA, LNP-S, PF, 30 mcg/0.3 mL dose DoD tetanus toxoid, reduced diphtheria toxoid, and acellular pertu is vaccine, adsorbed 1 2011 [place] [id number] [facility] ([facility]) complet ed tetanus toxoid, reduced diphtheri a toxoid, and acellular pertussis vaccine, adsorbed DoD vaccinia (smallpox) vaccine 0 2011 UNK 75 (PAM) complet ed vaccinia (smallpox ) vaccine DoD anthrax vaccine 2 2011 UNK 24 (EBS) complet ed anthrax vaccine DoD anthrax vaccine 1 2010 UNK 24 (EBS) complet ed anthrax vaccine DoD influenza virus vaccine, live, attenuated, for intranasal use 0 2010 [id number] [employer] (MED) complet ed influenza virus vaccine, live, attenuate d, for intranasa l use DoD influenza virus vaccine, live, attenuated, for intranasal use 0 2009 [id number] 111 [employer] (MED) complet ed influenza virus vaccine, live, attenuate d, for intranasa l use DoD typhoid Vi capsular polysaccharid e vaccine 2 2009 UNK 101 Sanofi Pasteur (PMC) complet ed typhoid Vi capsular polysacch aride vaccine DoD meningococcal polysaccharid e (groups A, C, Y and W-135) diphtheria toxoid conjugate vaccine (MCV4P) 0 2009 [id number] 114 Sanofi Pasteur (PMC) complet ed meningoco ccal polysacch aride (groups A, C, Y and W-135) diphtheri a toxoid conjugate vaccine (MCV4P) DoD Novel influenza-H1N 1-09, injectable 0 2009 [id number] 127 (AG) complet ed Novel influenza -I3V5-59, injectabl e DoD influenza virus vaccine, live, attenuated, for intranasal use 0 2008 [id number] 111 [employer] (MED) complet ed influenza virus vaccine, live, attenuate d, for intranasa l use DoD influenza virus vaccine, live, attenuated, for intranasal use 0 2007 UNK 111 Unknown (UNK) comple t ed influenza virus vaccine, live, attenuate d, for intranasa l use DoD influenza virus vaccine, live, attenuated, for intranasal use 0 2006 UNK 111 [employer] (MED) complet ed influenza virus vaccine, live, attenuate d, for intranasa l use DoD influenza virus vaccine, split virus (incl. purified surface antigen)-reti red CODE 0 2005 UNK 15 [employer] (PWJ) complet ed influenza virus vaccine, split virus (incl. purified surface antigen)- retired CODE DoD influenza virus vaccine, split virus (incl. purified surface antigen)-reti red CODE 0 2004 [id number] 15 Sanofi Pasteur ([facility]) complet ed influenza virus vaccine, split virus (incl. purified surface antigen)- retired CODE DoD influenza virus vaccine, split virus (incl. purified surface antigen)-reti red CODE 0 2004 UNK 15 () complet ed influenza virus vaccine, split virus (incl. purified surface antigen)- retired CODE DoD typhoid Vi capsular polysaccharid e vaccine 1 2004 UNK 101 Sanofi Pasteur ([facility]) complet ed typhoid Vi capsular polysacch aride vaccine DoD influenza virus vaccine, split virus (incl. purified surface antigen)-reti red CODE 0 2004 UNK 15 () complet ed influenza virus vaccine, split virus (incl. purified surface antigen)- retired CODE DoD typhoid vaccine, unspecified formulation 1 2004 UNK 91 () complet ed typhoid vaccine, unspecifi ed formulati on DoD hepatitis A and hepatitis B vaccine 3 2004 UNKNOWN 104 Unknown (UNK) comple t ed hepatitis A and hepatitis B vaccine DoD poliovirus vaccine, inactivated 1 2003 [id number] Sanofi Pasteur ([facility]) complet ed polioviru s vaccine, inactivat ed DoD yellow fever vaccine 1 2003 [id number] Sanofi Pasteur ([facility]) complet ed yellow fever vaccine DoD hepatitis A and hepatitis B vaccine 2 2003 [id number] [employer] (SKB) complet ed hepatitis A and hepatitis B vaccine DoD measles, mumps and rubella virus vaccine 1 2003 [id number] 03 Merck (MSD) complet ed measles, mumps and rubella virus vaccine DoD hepatitis A and hepatitis B vaccine 1 2003 [id number] [facility] ([facility]) complet ed hepatitis A and hepatitis B vaccine DoD tetanus and diphtheria toxoids, adsorbed, preservative free, for adult use (2 Lf of tetanus toxoid and 2 Lf of diphtheria toxoid) 1 2003 [id number] 09 Sanofi Pasteur (PMC) complet ed tetanus and diphtheri a toxoids, adsorbed, preservat cain free, for adult use (2 Lf of tetanus toxoid and 2 Lf of diphtheri a toxoid) DoD meningococcal polysaccharid e vaccine (MPSV4) 1 2003 [id number] 32 Sanofi Pasteur (PMC) complet ed meningoco ccal polysacch aride vaccine (MPSV4) DoD Results Combined list of recent chemistry, hematology and other laboratory results from [facility] and [facility], ranging from 15 months to all on record, depending upon the facility. Order Name Results Value Reference Range Date Interpretation Specimen Comments Source Chemistry POC U HCG Negative (07/31/23 11:58 AM) 07/[address] [place] [address] Vital Signs Combined list of inpatient and outpatient Vital Signs from [facility] and [facility], ranging from 12 months to all on record, depending upon the facility. Vital Sign Value Date Comments Source BP Site Right arm 07/24/2023 15:03:[address] [place] [address] Mean Arterial Pressure, Calc 106 mm[Hg] 07/24/2023 15:03:[address] [place] [address] [place] Respiratory Rate 14 br/min 07/24/2023 15:03:[address] [place] [address] Blood Pressure Manual Automatic 07/24/2023 15:03:[address] [place] [address] [place] Peripheral Pulse Rate 91 bpm 07/24/2023 15:03:[address] [place] [address] [place] Systolic Blood Pressure 137 mm[Hg] 07/24/19 24 15:03:[address] [place] [address] Diastolic Blood Pressure 91 mm[Hg] 024 15:03:[address] [place] [address] [place] Temperature Oral 36.7 Nereida 07/24/2023 15:03:00 [facility] [place] Peripheral Pulse Rate 85 bpm 07/31/2023 17:34:00 0024A-[facility] [place] Systolic Blood Pressure 142 mm[Hg] 07/31/19 24 17:34:[facility] [place] Diastolic Blood Pressure 90 mm[Hg] 024 17:34:00 [facility] [place] Temperature Oral 36.6 Nere[place] 07/31/2023 17:34:[address] [place] [address] [place] Respiratory Rate 18 br/min 07/31/2023 17:34:00 002-[facility] [place] Mean Arterial Pressure, Calc 97 mm[Hg] 07/29/2023 15:16:[address] [place] [address] [place] BP Site Left arm 07/29/2023 15:16:00 [facility] [place] Temperature Oral 36.7 Nereida 07/29/2023 15:16:00 0024C[facility] [place] Peripheral Pulse Rate 74 bpm 07/29/2023 15:16:[address] [place] [address] [place] Blood Pressure Manual Automatic 07/29/2023 15:16:[address] [place] [address] [place] Systolic Blood Pressure 129 mm[Hg] 07/29/19 24 15:16:[address] [place] [address] [place] Diastolic Blood Pressure 81 mm[Hg] 024 15:16:[address] [place] [address] [place] Respiratory Rate 16 br/min 07/29/2023 15:16:[address] [place] [address] [place] Encounters Combined list of: 1) Encounters from Department of Veterans Affairs facilities going backup to the last 18 months, not all VA inpatient encounters are included; 2) Encounters from the Department of Defense facilities going backup to 280 months. Location Location Details Encounter Type Encounter Number Reason For Visit Attending Provider ADM Date DC Date Status Disposition Source Tarik Hernandez [facility](Md litary Sick Call [facility] 237) OUTPATIENT [id number] pre comm NABIL ABREU 11/03 Released w/o Limitations Tarik [facility]( Militar y Sick Call [facility] 237) Tarik Hernandez [facility](Op tometry [facility] 237) OUTPATIENT [id number] Notes Entered by: RADHA CHAVEZ 04 Nov 2011 1034 ------- ------- ------- ------- -- Pre Comm IRENE Jean 11/03 Released w/o Limitations [facility]( Optomet ry [facility] 237) [facility]( [facility] OUTPATIENT [id number] Notes Entered by: LUZ SAWANT 04 Nov 2011 1237 ------- ------- ------- ------- -- HCP+HPD TARIK MENDES 11/03 Released w/o Limitations [facility]( Hearing Conserv ation [facility]) [facility](Im munizatio n [facility] 237) OUTPATIENT [id number] Notes Entered by: GLADYS CERDA 04 Nov 2011 1248 ------- ------- ------- ------- -- TDAP JAY MA 11/03 Released w/o Limitations [facility]( Immuniz ation [facility] 237) -[facility] [id number] Cervica lgia,He jeovannyche, unspeci fied FRANCIE CISNEROSDAVE NPORT 07/23 Discharge Disposition: Home or Self Care [facility] [id number] Segment al and somatic dysfunc tion of cervica l region, Segment al and somatic dysfunc tion of lumbar region, Cervica lgia,He adache, unspeci fied,Se gmental and somatic dysfunc tion of thoraci c region RK KTORRES 07/28 Discharge Disposition: Home or Self Care [facility] [place] [facility] [id number] Pain in right shoulde r,Perso nal history of other disease s of the musculo skeleta l system and connect cain tissue, Activit y, free weights ,Pain in right homare r CLAY ANNPARALES 07/30 Discharge Disposition: Home or Self Care [facility] [place] Procedures Combined list of: 1) Procedures from Department of Veterans Affairs facilities [facility], not all VA non-surgical procedures are included; 2) All procedures from the Department of Defense facilities. Procedure Procedure Type Code Date Perfomer Comments Sourc e No data available for this section Ambulato ry Pharmacy Ear Protector Attenuation Measurements Ear Protector Attenuation Measurements [id number] 11/06/19 12 TARIK MENDES [facility] Threshold Audiogram (Pure Tone) Threshold Audiogram (Pure Tone) [id number] 11/06/19 12 TARIK MENDES [facility] Tdap Vaccine Seven Years Of Age And Above Tdap Vaccine Seven Years Of Age And Above [id number] 11/05/19 12 [place] [facility] Immunization Administration One Vaccine Immunization Administration One Vaccine 81436 11/05/19 12 [place] [facility] Visual Function Screening Visual Function Screening [id number] 11/04/19 12 VALORIE CHAVEZ [facility] CERVICAL OR VAGINAL CANCER SCREENING; PELVIC AND CLINICAL BREAST EXAMINATION 11/08/19 04 [facility] PURE TONE AUDIOMETRY (THRESHOLD); AIR ONLY 10/20/19 04 [facility] PATIENT EDUCATION, NOT OTHERWISE CLASSIFIED, NON-PHYSICIAN PROVIDER, INDIVIDUAL, PER SESSION 02/21/19 05 [facility] PATIENT EDUCATION, NOT OTHERWISE CLASSIFIED, NON-PHYSICIAN PROVIDER, INDIVIDUAL, PER SESSION 02/15/20 04 [facility] EDUCATIONAL SUPPLIES, SUCH BOOKS, TAPES, AND PAMPHLETS, FOR THE PATIENT'S EDUCATION AT COST TO PHYSICIAN OR OTHER QUALIFIED HEALTH STRETCHER DRIER OPERATOR 08/02/19 05 [facility] NONINVASIVE EAR OR PULSE OXIMETRY FOR OXYGEN SATURATION; SINGLE DETERMINATION 05/25/19 05 [facility] SCREENING TEST OF VISUAL ACUITY, QUANTITATIVE, BILATERAL 05/22/19 05 [facility] SPECIAL REPORTS SUCH INSURANCE FORMS, MORE THAN THE INFORMATION CONVEYED IN THE USUAL MEDICAL COMMUNICATIONS OR STANDARD REPORTING FORM 05/22/19 05 [facility] TETANUS, DIPHTHERIA TOXOIDS AND ACELLULAR PERTUSSIS VACCINE (TDAP), WHEN ADMINISTERED TO INDIVIDUALS 7 YEARS OR OLDER, FOR INTRAMUSCULAR USE 11/04/19 12 [facility] PURE TONE AUDIOMETRY (THRESHOLD); AIR ONLY 11/04/19 12 [facility] VIS FUNCT SCREEN,AUTOMAT/NAVDEEP I-AUTOMAT BILAT QUANT DETERM VISUAL ACUITY,OCULAR ALIGN,COLOR VISION,PSEUDOISOCH ROMAT PLATES,& FIELD VIS (MAY INC ALL/SOME SCRN DETERM FOR CONTRAST SENSITIV,VIS UND GLARE) 11/04/19 12 [facility] Social History Combined list of available smoking, tobacco, and other social history from Department of Defense and Veterans Affairs facilities. Social History Type Response Date Comment Sourc e Sex Representation Female (finding) 03/10/2023 Unknown Organization Sexual Orientation Ambula tory Pharmacy Gender identity Ambulator y Pharmacy This section is an empty social history section. [facility] Assessment and Plan Combined list of future care activities from Department of Defense and Veterans Affairs facilities (e.g., assessment and plan notes, appointments, orders, and referrals). Additional future care activities may be listed in the Plan of Care section. Result Assessment and Plan Date Source Assessment and Plan Extracted from:Title : Ofe LANDEROS NP Author: RK DONALDSON L Ac Date: 07/31/23 [...] Follow these instructions at home: Medicines Take hlxi-zml-reqafkl and prescription medicines only as told by [...] for Headache and Migraine Patients (CHAMP): headachemigraine.org [place] Migraine Foundation: americanmigrainefoundation.or g National Headache Foundation: [...] provider. Document Revised: 09/30/2022 Document Reviewed: 09/30/2022 [employer] Patient Education 2023 [employer] General Headache Without Cause A headache is pain or discomfort you feel around the head or neck area. There are many causes and types of headaches. In some cases, the cause may not be found. Follow these instructions at home: Watch your condition for any changes. Let your doctor know about them. Take these steps to help with your condition: Managing pain Take wwgy-ejd-vendfgo and prescription medicines only as told by [...] provider. Document Revised: 07/04/2021 Document Reviewed: 07/04/2021 [employer] Patient Education 2023 [employer] Orthopedics Neck Exercises Ask your health care [...] against the pressure of your hand. Repeat 10-15 times. Complete this exercise 2 [...] lower it to your starting position. Repeat -15 times. Complete this exercise 2 [...] provider. Document Revised: 07/31/2021 Document Reviewed: 07/31/2021 [employer] Patient Education # [id number] [employer]. Extracted from:Title: Office Clinic Note Author: FRANCIE [...] symptoms persist - Patient has access to [facility] or[facility] o r given QRS code t o view n ormal labs.? Informed patient that I will call them only if t here are a bnJaman i n labs o r i maging. [...] Acute, 08/12/2024, 1 tab(s) Oral TID, Pharmacy: [facility] [Not filled] methocarbamol(Robaxin 500 mg oral tablet), 2 tab(s), Oral, QID, X 7 days, # 56 tab(s), 0 total refill(s), Acute, 2 tab(s) Oral QID,x7 days, Pharmacy: [facility] [Not filled] LCDR Francie Ortiz PA-C Staff Family Medicine [facility] 06/21/2024 0024C-[facility] Functional Status Combined list of recent functional and cognitive assessments recorded at Department of Defense and Veterans Affairs (VA).VA Functional [place] Measurement (FIM) Scale: 1 = Total Assistance (Subject = 0% +), 2 = Maximal Assistance (Subject = 25% +), 3 = Moderate Assistance (Subject = 50% +), 4 = Minimal Assistance (Subject = 75% +), 5 = Supervision, 6 = Modified [place] (Device), 7 = Complete [place] (Timely, Safely). Assessment Date/Time Source Assessment Type Assessment Skill Assessment Score Assessment Details No data available for this section
--- OUTSIDE RECORDS SUMMARY | 2024-06-21 08:07 | XMS_ITS | Referral Summary ---
Author Organization 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 [address] [place] Address [address] [place] [id number] Care Team Providers Care Public Information Director Name Role Phone Donnie Anne MD Primary Care Provider [phone] Yasmany Toribio MD Unavailable [phone] Allergies No known active allergies Medications Pregnyl [...] Final Result Performing Organization Address City/[place] [address] [place] [facility] [place] [address] * HM PAP SMEAR WITH HPV (04/13/2020) Scribed Pap Smear w/HPV Normal Narrative Radha Guerrero MA - 04/13/2020 In care everywhere Historical Provider HEALTH MAINTENANCE Final Result from Last 3 Months or Most Recently Relevant to Health Maintenance Insurance CLAIMS [facility] CLAIMS Care Teams Public Information Director Relationship Specialty Start Date End Date Donnie Anne MD [address] [place], [place] [phone] PCP - General Family Medicine 10/10/21 Yasmany Toribio MD [address] [facility] [address] [facility] [address] [place], [place] [phone] Referring Physician Obstetrics and Gynecology 10/10/21
--- OUTSIDE RECORDS SUMMARY | 2024-06-21 08:07 | XMS_ITS | Clinical Summary ---
Author Organization [facility] [address] Address [address] [place] [address] Care Team Providers Care Trench Digger Helper Name Role Phone Donnie Anne MD Primary Care Provider [phone] Yasmany Toribio MD Unavailable [phone] Allergies No known active allergies Medications Pregnyl [...] Final Result Performing Organization Address City/State/ZIP Co ri Phone Number [place] [address] [address] [place] [address] * PAP SMEAR WITH HPV (04/13/2020) Scribed Pap Smear w/HPV Normal Narrative Radha Guerrero MA - 04/13/2020 In care everywhere us Historical Provider HEALTH MAINTENANCE Final Result from Last 3 Months or Most Recently Relevant to Health Maintenance Insurance CLAIMS CLAIMS Care Teams Trench Digger Helper Relationship Specialty Start Date End Date Donnie Anne MD [address] [place] [address] PCP - General Family Medicine 10/10/21 Yasmany Toribio MD [address] [facility] [address] [place] [employer] [place], [place] [id number] Referring Physician Obstetrics and Gynecology 10/10/21
--- OUTSIDE RECORDS SUMMARY | 2024-06-21 08:07 | XMS_ITS | Encounter Summary ---
Author Organization [facility] Address [address] [place] [address] Care Team Providers Care Cloth Layer Name Role Phone Bryant Saleh MD Primary Care Provider [phone] Garry Balbuena MD Primary Care Provider [phone] Red Castro MD Unavailable [phone] Encounter Details Date Type Department Care Team (Late st Contact Info) Description 11/07/2017 Abstract [facility] Family Medicine - [place] [address] [place] [id number] Garry Balbuena MD [address] [place], [place] [id number] Social History Tobacco Use Types Packs/Day Years [...] on filedocumented in this encounter Care Teams Cloth Layer Relationship Specialty Start Date End Date Bryant Saleh MD [address] '[place], [place] [id number] PCP - General 02/22/16 01/13/18 Garry Balbuena MD [address] [facility] [address] [place] [address] PCP - General FAMILY PRACTICE 01/14/18 Red Castro MD Three [facility]. [address] [place], [place] [address] Gabby Director Sanitation Bureau CARDIOVASCULAR DISEASE 09/30/18 documented as of this encounter
--- OUTSIDE RECORDS SUMMARY | 2024-06-21 08:07 | XMS_ITS | Continuity of Care Document ---
Author Organization [facility] Address [address] [place] [address] [place] [address] Phone Care Team Providers Care Document Design Specialist Name Role Phone Ricky Alfaro MD Unavailable [...] Diagnoses Date Provider Providers Copied on Encounter [facility], [address], [place], [place], [address], [place] tel:[phone] [facility] No Information Dominic García. [address], [place], [place], [address], [place]. tel:[phone] Referring Provider: Ricky Alfaro, [address], [place], [place], [address]. tel:[phone] PREV VISIT, NEW, AGE 18-39 [facility], [address], [place], [place], [address], [place] tel:[phone] [facility] Medicine Physical (chief complaint) Encntr for general adult medical exam w/o abnormal findings Dominic García. [address], [place], [place], [address], [place]. tel:[phone] Referring Provider: Ricky Alfaro, [address], [place], [place], [address]. tel:[phone] Family History Family Member Type Diagnosis Age [...]
--- OUTSIDE RECORDS SUMMARY | 2024-06-21 08:07 | XMS_ITS | Clinical Summary ---
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 SUPERVISOR Pulse 64 04/20/2019 8:30 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 SUPERVISOR Temperature 36.4 C (97.6 F) 04/20/2019 8:30 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 SUPERVISOR Respiratory Rate 18 04/20/2019 8:30 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 SUPERVISOR Oxygen Saturation 100% 04/20/2019 8:30 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 SUPERVISOR Inhaled Oxygen Concentration - - Weight 70.4 kg (155 lb 3.2 oz) 04/20/2019 8:30 A M 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 SUPERVISOR Height 162.6 cm (5' 4 ) 04/20/2019 8:30 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 SUPERVISOR Body Mass Index 26.64 04/20/2019 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 [address] [place] [address] [place] [facility] CARDIOVASCULAR DISEASE 09/30/18
[2024-06-21 10:15] LABS: Total Protein Urine Random < 5 mg/dL
[2024-06-21 10:30] LABS: Total Volume 24 Hour Urine 1800 ml
[2024-06-21 10:32] LABS: Total Protein Urine 24 Hr < 90 mg/24hr (28-141)
== END 2024-06-21 08:00 | disposition home or self-care (01) ==
LOC: ANHLAB 08:00
PROVIDERS: PCP Family Medicine; Visit Provider Obstetrics & Gynecology
DX: Z34.90 Encounter for supervision of normal pregnancy, unspecified, unspecified trimester (principal); Z87.59 Personal history of other complications of pregnancy, childbirth and the puerperium; Z3A.00 Weeks of gestation of pregnancy not specified
CPT/HCPCS: 81050; 84156

== ENCOUNTER 2024-09-22 08:33 | Outpatient (CLI) | payer OTHER, SELFPAY ==
--- OUTSIDE RECORDS SUMMARY | 2024-09-22 08:44 | XMS_ITS | Continuity of Care Document ---
Author Name [facility] Organization [facility] Care Team Providers Care Production Line Name Role Phone [facility] Unavailable Unavailable Problems Combined list of problems from Department of Defense and Veterans Affairs facilities. It does not include entries that were removed or entered in error. Problem Status Onset Date Problem Type Date of Resolution Comments Source Cervicalgia Active Condition [address] [place] [address] [place] Headache Active Condition [address] [place] [address] [place] visit: ears/hearing exam for hearing conservation, treatment Inactive Condition [facility] visit for: services physical Active Condition [facility] Vaccines Prophylactic Need Against DTP Inactive Condition [facility] visit for: services commissioning physical Active Condition [facility] Medications Combined list of outpatient medications from [...] drowsine ss/dizzi ness.Do not take if . 07/23/2024 [id number] 4 2023 90 [facility] [place] ibuprofen 800 mg oral tablet 1 tab(s), Oral, TID, # 90 tab(s), 0 total refill(s ), Acute, 08/12/24 2:00:00 AM CDT, [facility] Oral (given by mouth) Complet ed 08/12/2024 4 2024 [facility] [place] methocarbam ol (U/D) 500 MG ORAL TAB May cause drowsine ss. 07/23/2024 [id number] 4 2023 56 [facility], [place] Robaxin 500 mg oral tablet 2 tab(s), Oral, QID, X 7 days, # 56 tab(s), 0 total refill(s ), Acute, Pharmacy : [facility] Oral (given by mouth) Complet ed 07/31/2023 4 2023 56.0 [facility] Allergies, Adverse Reactions, Alerts Combined list of allergies from Department of Defense and Veterans Affairs facilities. It does not include entries that were removed or entered in error. Substance Category Reaction Severity Reaction type Status Date Reported Comments Source No Known Allergies Drug allergy (disorder) active 07/24/2023 [facility], [place] Immunizations Combined list of available immunizations from the Department of Defense and Veterans Affairs facilities. Immunization Series Date Given Administered By Site Reaction Lot Number CVX Code Drug Wiper Blender Status Comments Source COVID-19, mRNA, LNP-S, PF, 30 mcg/0.3 mL dose 2020 [employer] (PFR) Not Given COVID-19, mRNA, LNP-S, PF, 30 mcg/0.3 mL dose DoD COVID-19, mRNA, LNP-S, PF, 30 mcg/0.3 mL dose 2020 [employer] (PFR) Not Given COVID-19, mRNA, LNP-S, PF, 30 mcg/0.3 mL dose DoD tetanus toxoid, reduced diphtheria toxoid, and acellular pertu is vaccine, adsorbed 1 2011 JAY MA [id number] [address] [place] [address] (SKB) complet ed tetanus toxoid, reduced diphtheri [...] live, attenuated, for intranasal use 0 2010 [id number] [employer], [employer]. (MED) complet ed influenza virus vaccine, live, attenuate d, for intranasa l use DoD influenza virus vaccine, live, attenuated, for intranasal use 0 2009 [id number] 111 [employer] Inc. (MED) complet ed influenza virus vaccine, live, attenuate d, for intranasa l use DoD typhoid Vi capsular polysaccharid e vaccine 2 2009 UNK 101 Sanofi Pasteur ([facility]) complet ed typhoid Vi capsular polysacch aride vaccine DoD meningococcal polysaccharid e (groups A, C, Y and W-135) diphtheria toxoid conjugate vaccine (MCV4P) 0 2009 [id number] Sanofi Pasteur ([facility]) complet ed meningoco ccal polysacch aride (groups A, C, Y and W-135) diphtheri a toxoid conjugate vaccine (MCV4P) DoD Novel influenza-H1N 1-09, injectable 0 2009 [id number] 1 127 (AG) complet ed Novel influenza -[id number], injectabl e DoD influenza virus vaccine, live, attenuated, for intranasal use 0 2008 [id number] 111 [employer], Inc. (MED) complet ed influenza virus vaccine, live, attenuate d, for intranasa l use DoD influenza virus vaccine, live, attenuated, for intranasal use 0 2007 UNK 111 Unknown (UNK) comple t ed influenza virus vaccine, live, attenuate d, for intranasa l use DoD influenza virus vaccine, live, attenuated, for intranasal use 0 2006 UNK 111 Pne[employer], Inc. (MED) complet ed influenza virus vaccine, live, attenuate d, for intranasa l use DoD influenza virus vaccine, split virus (incl. purified surface antigen)-reti red CODE 0 2005 UNK 15 [employer] (PWJ) complet ed influenza virus vaccine, split virus (incl. purified surface antigen)- retired CODE DoD influenza virus vaccine, split virus (incl. purified surface antigen)-reti red CODE 0 2004 [id number] 15 Sanofi Pasteur ([facility]) complet ed influenza virus vaccine, split virus (incl. purified surface antigen)- retired CODE DoD influenza virus vaccine, split virus (incl. purified surface antigen)-reti red CODE 0 2004 UNK 15 () complet ed influenza virus vaccine, split virus (incl. purified surface antigen)- retired CODE DoD typhoid Vi capsular polysaccharid e vaccine 1 2004 UNK 101 Sanofi Pasteur ([facility]) complet ed [...] vaccine DoD poliovirus vaccine, inactivated 1 2003 [id number] 10 Sanofi Pasteur ([facility]) complet ed polioviru s vaccine, inactivat ed DoD yellow fever vaccine 1 2003 [id number] Sanofi Pasteur ([facility]) complet ed yellow fever vaccine DoD hepatitis A and hepatitis B vaccine 2 2003 [id number] 104 [employer] ([facility]) complet ed hepatitis A and hepatitis B vaccine DoD measles, mumps and rubella virus vaccine 1 2003 [id number] 03 Merck (MSD) complet ed measles, mumps and rubella virus vaccine DoD hepatitis A and hepatitis B vaccine 1 2003 [id number] 104 [employer] (SK) complet ed hepatitis A and hepatitis B vaccine DoD tetanus and diphtheria toxoids, adsorbed, preservative free, for adult use (2 Lf of tetanus toxoid and 2 Lf of diphtheria toxoid) 1 2003 [id number] 09 Sanofi Pasteur ([facility]) complet ed tetanus and diphtheri a toxoids, adsorbed, preservat cain free, for adult use (2 Lf of tetanus toxoid and 2 Lf of diphtheri a toxoid) DoD meningococcal polysaccharid e vaccine (MPSV4) 1 2003 [id number] 32 Sanofi Pasteur ([facility]) complet ed meningoco ccal polysacch aride vaccine (MPSV4) DoD Results Combined list of recent chemistry, hematology and other laboratory results from Department of Defense and Veterans Affairs, ranging from 15 months to all on record, depending upon the facility. Order Name Results Value Reference Range Date Interpretation Specimen Comments Source Chemistry POC U HCG Negative (07/31/23 11:58 AM) 07/[address] [place] [address] [place] Vital Signs Combined list of inpatient and outpatient Vital Signs from Department of Defense and Veterans Affairs, ranging from 12 months to all on record, depending upon the facility. Vital Sign Value Date Comments Source BP Site Right arm 07/24/2023 15:03:[address] [place] [address] Aisha Mean Arterial Pressure, Cuff (Calc) 106 mm[Hg] 07/24/2023 15:03:[address] [place] [address] [place] Respiratory Rate 14 br/min 07/24/2023 15:03:[address] [place] [address] [place] Blood Pressure Manual Automatic 07/24/2023 15:03:[address] [place] [address] [place] Peripheral Pulse Rate 91 bpm 07/24/2023 15:03:[address] [place] [address] [place] Systolic Blood Pressure 137 mm[Hg] 07/24/19 15:03:[address] [place] [address] [place] Diastolic Blood Pressure 91 mm[Hg] 15:03:[address] [place] [address] [place] Temperature Oral 36.7 Nereida 07/24/2023 15:03:[address] [place] [address] [place] Peripheral Pulse Rate 85 bpm 07/31/2023 17:34:[address] [place] [address] Aisha Systolic Blood Pressure 142 mm[Hg] 07/31/19 17:34:[address] [place] [address] [place] Diastolic Blood Pressure 90 mm[Hg] 17:34:[address] [place] [address] [place] Temperature Oral 36.6 Nereida 07/31/2023 17:34:[address] [place] [address] Aisha Respiratory Rate 18 br/min 07/31/2023 17:34:[address] [place] [address] [place] Mean Arterial Pressure, Cuff (Calc) 97 mm[Hg] 07/29/2023 15:16:[address] [place] [address] Aisha BP Site Left arm 07/29/2023 15:16:[address] [place] [address] [place] Temperature Oral 36.7 Nereida 07/29/2023 15:16:[address] [place] [address] Aisha Peripheral Pulse Rate 74 bpm 07/29/2023 15:16:[address] [place] [address] [place] Blood Pressure Manual Automatic 07/29/2023 15:16:[address] [place] [address] [place] Systolic Blood Pressure 129 mm[Hg] 07/29/19 24 15:16:[address] [place] [address] Aisha Diastolic Blood Pressure 81 mm[Hg] 024 15:16:[address] [place] [address] [place] Respiratory Rate 16 br/min 07/29/2023 15:16:[address] [place] [address] [place] Encounters Combined list of: 1) Encounters from Department of [facility] Affairs facilities going backup to the last 18 months, not all VA inpatient encounters are included; 2) Encounters from the Department of [facility] facilities going backup to 280 months. Location Location Details Encounter Type Encounter Number Reason For Visit Attending Provider ADM Date DC Date Status Disposition Source [facility](Mi litary Sick Call [facility]) OUTPATIENT [id number] pre comm NABIL ABREU 11/03 Released w/o Limitations [facility]( Militar y Sick Call [facility] 237) [facility](Op tometry [facility] 237) OUTPATIENT [id number] Notes Entered by: RADHA CHAVEZ 04 Nov 2011 1034 ------- ------- ------- ------- -- Pre Comm IRENE Jean 11/03 Released w/o Limitations [facility]( Optomet ry [facility] 237) [facility] OUTPATIENT [id number] Notes Entered by: LUZ SAWANT 04 Nov 2011 1237 ------- ------- ------- ------- -- HCP+HPD TARIK MENDES 11/03 Released w/o Limitations [facility]( [facility]) [facility](Im munizatio n [facility] 237) OUTPATIENT [id number] Notes Entered by: GLADYS CERDA 04 Nov 2011 1248 ------- ------- ------- ------- -- TDAP JAY MA 11/03 Released w/o Limitations Tarik Hernandez [facility]( Immuniz ation [facility] 237) Procedures Combined list of: 1) Procedures from Department of Veterans Affairs facilities going back up to [facility] 18 months, not all VA non-surgical procedures are included; 2) All procedures from the Department of Defense facilities. Procedure Procedure Type Code Date Perfomer Comments Sourc e No data available for this section [facility] CERVICAL OR VAGINAL CANCER SCREENING; PELVIC AND CLINICAL BREAST EXAMINATION 11/08/19 04 [facility] PURE TONE AUDIOMETRY (THRESHOLD); AIR ONLY 10/20/19 04 [facility] PATIENT EDUCATION, NOT OTHERWISE CLASSIFIED, NON-PHYSICIAN PROVIDER, INDIVIDUAL, PER SESSION 02/21/19 05 [facility] PATIENT EDUCATION, NOT OTHERWISE CLASSIFIED, NON-PHYSICIAN PROVIDER, INDIVIDUAL, PER SESSION 02/15/20 04 [facility] EDUCATIONAL SUPPLIES, SUCH BOOKS, TAPES, AND PAMPHLETS, FOR THE PATIENT'S EDUCATION AT COST TO PHYSICIAN OR OTHER QUALIFIED HEALTH EVENT SALES MANAGER 08/02/19 05 [facility] NONINVASIVE EAR OR PULSE OXIMETRY FOR OXYGEN SATURATION; SINGLE DETERMINATION 05/25/19 05 [facility] SCREENING TEST OF VISUAL ACUITY, QUANTITATIVE, BILATERAL 05/22/19 05 [facility] SPECIAL REPORTS SUCH INSURANCE FORMS, MORE THAN THE INFORMATION CONVEYED IN THE USUAL MEDICAL COMMUNICATIONS OR STANDARD REPORTING FORM 05/22/19 05 [facility] TETANUS, DIPHTHERIA TOXOIDS AND ACELLULAR PERTUSSIS VACCINE (TDAP), WHEN ADMINISTERED TO INDIVIDUALS 7 YEARS OR OLDER, FOR INTRAMUSCULAR USE 11/04/19 12 [facility] PURE TONE AUDIOMETRY (THRESHOLD); AIR ONLY 11/04/19 12 [facility] VIS FUNCT SCREEN,AUTOMAT/NVADEEP I-AUTOMAT BILAT QUANT DETERM VISUAL ACUITY,OCULAR ALIGN,COLOR VISION,PSEUDOISOCH ROMAT PLATES,& FIELD VIS (MAY INC ALL/SOME SCRN DETERM FOR CONTRAST SENSITIV,VIS UND GLARE) 11/04/19 12 [facility] Ear Protector Attenuation Measurements Ear Protector Attenuation Measurements [id number] 11/06/19 12 TARIK MENDES [facility] Threshold Audiogram (Pure Tone) Threshold Audiogram (Pure Tone) 78787 11/06/19 12 TARIK MENDES Tdap Vaccine Seven Years Of Age And Above Tdap Vaccine Seven Years Of Age And Above 18425 11/05/19 12 JAY MA [facility] Immunization Administration One Vaccine Immunization Administration One Vaccine 72733 11/05/19 12 JAY MA [facility] Visual Function Screening Visual Function Screening 37750 11/04/19 12 VALORIE CHAVEZ [facility] Social History Combined list of available smoking, tobacco, and other social history from Department of Defense and Veterans Affairs facilities. Social History Type Response Date Comment Sourc e Sex Representation Female (finding) 03/10/2023 Unknown Organization Sexual Orientation Ambula tory Pharmacy Gender identity Ambulator y Pharmacy This section is an empty social history section. [facility] Assessment and Plan Combined list of future care activities from Department of Defense and Veterans Affairs facilities (e.g., assessment and plan notes, appointments, orders, and referrals). Additional future care activities may be listed in the Plan of Care section. Result Assessment and Plan Date Source Assessment and Plan Extracted from:Title : Acu Royce LANDEROS NP Author: RK DONALDSON L Ac [...] Follow these instructions at home: Medicines Take pzji-mar-jlodvre and prescription medicines only as told by [...] for Headache and Migraine Patients (CHAMP): headachemigraine.org [place] Migraine Foundation: americanmigrainefoundation.or g National Headache Foundation: [...] provider. Document Revised: 09/30/2022 Document Reviewed: 09/30/2022 [employer] Patient Education 2023 [employer] General Headache Without Cause A headache [...] help with your condition: Managing pain Take gebi-kkp-sxtermk and prescription medicines only as told by [...] provider. Document Revised: 07/04/2021 Document Reviewed: 07/04/2021 [employer] Patient Education 2023 [employer] Orthopedics Neck Exercises Ask your health [...] provider. Document Revised: 07/31/2021 Document Reviewed: 07/31/2021 [employer] Patient Education # 7 [employer]. Extracted from:Title: Office Clinic Note Author: FRANCIE [...] Acute, 08/12/2024, 1 tab(s) Oral TID, Pharmacy: [facility] [Not filled] methocarbamol(Robaxin 500 mg oral tablet), 2 tab(s), Oral, QID, X 7 days, # 56 tab(s), 0 total refill(s), Acute, 2 tab(s) Oral QID,x7 days, Pharmacy: [facility] [Not filled] LCDR Francie Ortiz PA-C Staff Family Medicine [facility] 09/22/2024 [facility] Functional Status Combined list of recent functional and cognitive assessments recorded at Department of Defense and Veterans Affairs (VA).VA Functional [place] Measurement (FIM) Scale: 1 = Total Assistance (Subject = 0% +), 2 = Maximal Assistance (Subject = 25% +), 3 = Moderate Assistance (Subject = 50% +), 4 = Minimal Assistance (Subject = 75% +), 5 = Supervision, 6 = Modified [place] (Device), 7 = Complete [place] (Timely, Safely). Assessment Date/Time Source Assessment Type Assessment Skill Assessment Score Assessment Details No data available for this section
--- OUTSIDE RECORDS SUMMARY | 2024-09-22 08:44 | XMS_ITS | Continuity of Care Document ---
Author Organization [facility] Address [address] [address] [place] [address] Phone Care Team Providers Care Scarfer Operator Name Role Phone Ricky Alfaro MD Unavailable [...] Diagnoses Date Provider Providers Copied on Encounter [facility], [address], [place], [place], [address], [place] tel:[phone] [facility] No Information Dominic García. [address], [place], [place], [address], [place]. tel:[phone] Referring Provider: Ricky Alfaro, [address], [place], [place], [address]. tel:[phone] PREV VISIT, NEW, AGE 18-39 [facility], [address], [place], [place], [address], [place] tel:[phone] [facility] Medicine Physical (chief complaint) Encntr for general adult medical exam w/o abnormal findings Dominic García. [address], [place], [place], [address], [place]. tel:[phone] Referring Provider: Ricky Alfaro, [address], [place], [place], [address]. tel:[phone] Family History Family Member Type Diagnosis Age At Onset Mother Problem (finding) Alive and well Sister Problem (finding) Alive and well Father Problem (finding) Alive and well Payers Payer name Insurance type Covered constitution party ID Authormisbah tinancy(s) No Information Social History [...]
--- OUTSIDE RECORDS SUMMARY | 2024-09-22 08:44 | XMS_ITS | Clinical Summary ---
Author Organization [facility] Address [address] [place] [address] Care Team Providers Care Burglar Alarm Inspector Name Role Phone [address] Primary Care Prov ider Unknown, Provider Unavailable Unavailable Source Comments [facility],non-owned Affiliates and Associated Physician Practices is amultiple site organization consisting of ambulatory clinics and hospital sitesin [place], [place], [place] and [place]. This disclosure is being madepursuant to the Care Everywhere program and may not contain all information available regarding this patient. Last updated 17.[facility] Allergies No known active allergies Medications * Be aware that medications may not be up to date on this document. Alwaysverify current medications with the patient. Vit-DSS-Fe Fum-FA ( vitamin with iron) tablet Take 1 (one) tablet by mouth once daily Active aspirin (Aspirin) 81 MG chew tablet Take 2 (two) tablets by mouth once daily (chew and swallow) Active Active Problems Estimated Date of Delivery Comme nts Yes 12/15/2024 Based on Patient Reported No known active problems Encounters Date Type Department Care Team Description 08/31/2024 Orders Only [facility] [address] [place] [id number] Noris Ferrer RN 08/27/2024 11:01 AM CDT - 08/27/2024 11:59 PM CDT Hospital Encounter [facility] [address] [place] [address] Merari Guillory MD [employer] OUT WORKER Discharge Disposition: Home or Self Care 07/28/2024 8:53 AM CDT - 07/28/2024 11:59 PM CDT Hospital Encounter [facility] [address] [place] [address] Julio Noel MD Discharge Disposition: Home or Self Care 07/28/2024 8:49 AM CDT - 07/28/2024 8:52 AM CDT Hospital Encounter [facility] [address] [place] [id number] Julio Noel MD Discharge Disposition: Home or Self Care from Last 3 Months Family History Relation Name Status Comments Father Alive Mother Alive Sister 1 Alive Sister 2 Alive Sister 3 Alive Social History Tobacco Use Types Packs/Day Years Used Date Smoking Tobacco: Never Smokeless Tobacco: Never Estimated Date of Delivery Comme nts Yes 12/15/2024 Based on Patient Reported Sex and Gender Information Value Date Recorded Sex Assigned at Not on file Legal 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 Gender Identity Not on file Sexual Orientation Not on file Last Filed Vital Signs Vital Sign Reading Time Taken Comments Blood Pressure 111/62 07/28/2024 9:54 AM CDT Pulse 86 07/28/2024 9:54 AM CDT Temperature 36.7 C (98 F) 06/05/2020 3:02 PM CDT Respiratory Rate 20 06/05/2020 3:02 PM CDT Oxygen Saturation 99% 02/09/2017 3:06 PM DENTAL TECHNICIAN METAL Inhaled Oxygen Concentration - - Weight 81.2 kg (179 lb) 07/28/2024 10:54 AM CDT Height 160 cm (5' 3) 07/28/2024 9:54 AM CDT Body Mass Index 31.71 07/28/2024 9:54 AM CDT Plan of Treatment Upcoming Encounters Date Type Department Care Team (Late st Contact Info) Description 09/24/2024 9:45 AM CDT Hospital Encounter [facility] [address] [place] [phone] Julio Noel MD [address] [phone] Health Maintenance Due Date Last Done Comments HIV SCREENING 2000 DTAP/TDAP/TD VACCINES (1 - Tdap) 2004 HEPATITIS B VACCINE (1 of 3 - 19+ 3-dose series) 2004 PAP SMEAR 2006 HPV VACCINE (1 - 3-dose SCDM series) 2012 COVID-19 VACCINE ( - 2023-2 5 season) 2023 DEPRESSION SCREENING 02/18/2024 OB-ONE HOUR GLUCOSE 09/08/2024 OB-TDAP CURRENT 09/15/20242015, 11/04/2011 OB-RHOGAM INJECTION 09/22/2024 INFLUENZA VACCINE (#1) 2024 Respiratory Syncytial Virus (RSV) Vaccine Pt: or over 60 yrs (1 - Risk 1-dose series) 10/20/2024 ZOSTER VACCINE (1 of 2) 2035 HEPATITIS C SCREENING Completed 10/13/2023 , 10/13/2023 HIB VACCINE Aged Out No longer eligi ble based on patient's age to complete this topic MENINGOCOCCAL (Group B) VACCINE SHARED DECISION-MAKING Aged Out No longer eligible based on patient's age to complete this topic MENINGOCOCCAL GROUPS A/C/Y/W VACCINE Aged Out No longer eligible b ased on patient's age to complete this topic PNEUMOCOCCAL VACCINE Aged Out No long er eligible based on patient's age to complete this topic Procedures Procedure Name Priority Date/Time Associated Diagnosis Comments SONOGRAM - COMPLETE Routine 08/27/2024 11:27 AM CDT Encounter for anatomic survey (HCC) resulting from in vitro fertilization in second trimester (HCC) 20 weeks gestation of (HCC) SONOGRAM - COMPLETE Routine 07/28/2024 8:54 AM CDT Encounter for anatomic survey (HCC) resulting from in vitro fertilization in second trimester (HCC) 20 weeks gestation of (HCC) from Last 3 Months Results * SONOGRAM - COMPLETE (08/27/2024 11:27 AM CDT) Only the most recent of2 resultswithin the time period is included. Linked Results Indication ======== Supervision of resulting from assisted reproductive technology Advanced maternal age (AMA), primigravida Chronic hypertension (CHTN) complicating AMA 39 years, IVF with reportedly negative PGT-A, Possible cHTN on no meds History ====== OB History 1 Lab Tests Test Date Result preimplantation genetic Normal testing Maternal Assessment Physical Exam Height 160 cm, 5 ft 3 in. Weight 82 kg, 180 lb. Initial weight 83 kg, 183 lb. BMI 31.89 kg/m . Initial BMI 32.42 kg/m . Weight gain -1 kg, -3 lb Method ====== Transabdominal ultrasound. View: Sufficient ========= Ojeda . Number of fetuses: 1 Dating ====== Date Details Gest. age MARIN LMP 03/08/2024 24 w + 4 d 12/13/2024 Conception Conception: IVF Embryo transfer 03/29/2024 IVF / ET: 5 d 24 w + 2 d 12/15/2024 Stated MARIN 24 w + 2 d 12/15/2024 Previous U/S 04/21/2024 CRL 3.7 mm 24 w + 2 d 12/15/2024 U/S 08/27/2024 based upon AC, BPD, Femur, HC 25 w + 1 d 12/09/2024 Assigned dating based on the IVF / ET date, selected on 07/28/2024 24 w + 2 d 12/15/2024 General Evaluation Cardiac activity present. FHR 147 bpm. Presentation: cephalic Placenta: Placental site: posterior Amniotic fluid: Amount of AF: normal. MVP 3.9 cm Biometry BPD 60.7 mm 24w 5d 59% Hadlock HC 232.5 mm 25w 2d 69% Hadlock AC 208.4 mm 25w 3d 76% Hadlock Femur 45.9 mm 25w 2d 67% Hadlock Humerus 42.6 mm 25w 4d 80% Elicia HC / AC 1.12 Weight Calculation: EFW 792 g 83% Hadlock EFW (lb,oz) 1 lb 12 oz EFW by Hadlock ([id number]) appropriate Growth Overview Exam date GA BPD (mm) HC (mm) AC (mm) FL (mm) HL (mm) EFW (g) 07/28/2024 20w 0d 49.2 83% 177.9 54% 159.3 78% 33.5 61% 31.3 70% 375 84% 08/27/2024 24w 2d 60.7 59% 232.5 69% 208.4 76% 45.9 67% 42.6 80% 792 83% Anatomy The following structures appear normal: Abdomen Stomach. Kidneys. Bladder. Impression ========= Single, live, intrauterine at 24w 2d The size & amniotic fluid volume are normal No malformations were seen within the limits of ultrasound Comment ======== U/S cannot detect all structural, genetic, or functional , placental, or maternal abnormalities Follow-up ======== Follow up ultrasound in 4 weeks for serial growth assessment Begin weekly testing at 32 weeks, as previously recommended Coding ====== Diagnoses O10.012, I10: Pre-existing essential hypertension complicating , Essential (primary) hypertension O09.512: Supervision of elderly primigravida Procedures 89834: US Preg Uterus Follow Up [facility] [employer] PACS Anatomical Region Laterality Modality Other 08/27/2024 11:2 7 AM CDT Yasmany Frazier MD [facility] ORDERABLES Edited Result - Final from Last 3 Months Insurance [employer] Care Teams Burglar Alarm Inspector Relationship Specialty Start Date [facility] [address] [place] [address] PCP - General Family Medicine 02/09/17 Unknown, Provider [address] [place] [address] 02/09/17
--- OUTSIDE RECORDS SUMMARY | 2024-09-22 08:45 | XMS_ITS | Clinical Summary ---
Author Organization [facility] [address] Address [address] [place] [phone] Care Team Providers Care Moving Picture Producer Name Role Phone Donnie Anne MD Primary Care Provider [phone] Yasmany Toribio MD Unavailable Allergies No known active allergies Medications Pregnyl [...] 1:18 PM CDT Height 162.6 cm (5' 4) 10/13/2023 1:18 PM CDT Body Mass Index 30.9 10/13/2023 1:18 PM CDT Plan of Treatment Health Maintenance Due Date Last Done Comments HPV Vaccines (1 - 3-dose SCD M series) 2012 Cervical Cancer Screening 04/13/2021 04/13/2020 Covid-19 Vaccine ( - 2023-2 5 season) 2023 09/18/2020, 08/27/2020 Depression Screening 10/12/2024 10/13/2023, 10/10/2022, 10/10/2021 Regular Well Visit/Exam 18-64 10/12/2024, 10/10/2022, 10/10/2021 Varicella Vaccines (1 of 2 - 13+ 2-dose series) 10/12/2024 Postponed from 03/31 (Patient declined, but will receive in the future) Influenza Vaccine (#1) 2024 DTaP/Tdap/Td Vaccine (2 - Td or Tdap) 08/01/2025 08/02/2015 Hepatitis B Screening Completed 10/13/2023 Hepatitis C Screening Completed 10/13/2023 Pneumococcal vaccine <65 Aged Out No longer [...] Final Result Performing Organization Address City/State/ZIP Co ct Phone Number [facility] [address] [place] [address] * PAP SMEAR WITH HPV (04/13/2020) Scribed Pap Smear w/HPV Normal Narrative Radha Guerrero MA - 04/13/2020 In care everywhere us Historical Provider HEALTH MAINTENANCE Final Result from Last 3 Months or Most Recently Relevant to Health Maintenance Insurance CLAIMS [employer] Care Teams Moving Picture Producer Relationship Specialty Start Date End Date Donnie Anne MD [address] [place], [place] [phone] PCP - General Family Medicine 10/10/21 Yasmany Toribio MD [address] [facility] [address] [place], [place] [id number] Referring Physician Obstetrics and Gynecology 10/10/21
[2024-09-22 09:46] LABS: Hematocrit 36.2 % (37.0-47.0); Hemoglobin 12.0 g/dL (12.0-15.0); Mean Corpuscular HGB Conc 33.1 g/dl (32-36); Mean Corpuscular Hemoglobin 28.4 pg (26-34); Mean Corpuscular Volume 85.8 fl (80-100); Platelet Count Result 250 k/mm3 (150-375); Red Blood Count 4.22 M/mm3 (4.2-5.4); White Blood Count 11.3 K/mm3 (4.5-10.0)
[2024-09-22 10:11] LABS: Glucose 1 Hour PP 50gm Dose 142 mg/dL
[2024-09-22 10:44] LABS: Hepatitis B Surface Antigen Negative (Negative)
== END 2024-09-22 08:34 | disposition home or self-care (01) ==
LOC: ANHLAB 08:35
PROVIDERS: PCP Family Medicine; Referring Provider Nurse Practitioner Family; Visit Provider Obstetrics & Gynecology
DX: Z34.90 Encounter for supervision of normal pregnancy, unspecified, unspecified trimester (principal); Z3A.00 Weeks of gestation of pregnancy not specified
CPT/HCPCS: 36415; 82947; 85027; 87340

== ENCOUNTER 2024-09-27 07:10 | Outpatient (CLI) | payer OTHER, SELFPAY ==
--- OUTSIDE RECORDS SUMMARY | 2024-09-27 07:13 | XMS_ITS | Continuity of Care Document ---
Author Name [facility] Organization [facility] Care Team Providers Care French Instructor Name Role Phone [facility] Unavailable Unavailable Problems Combined list of problems from Department of Defense and Veterans Affairs facilities. It does not include entries that were removed or entered in error. Problem Status Onset Date Problem Type Date of Resolution Comments Source Cervicalgia Active Condition [address] [place] [address] [place] Headache Active Condition [facility] [place] visit: ears/hearing exam for hearing conservation, treatment Inactive Condition [facility] visit for: services physical Active Condition [facility] Vaccines Prophylactic Need Against DTP Inactive Condition [facility] visit for: services commissioning physical Active Condition [facility] Medications Combined list of outpatient medications from [...] ss/dizzi ness.Do not take if . 07/23/2024 [id number] 4 2023 90 [facility] [place] ibuprofen 800 mg oral tablet 1 tab(s), Oral, TID, # 90 tab(s), 0 total refill(s ), Acute, 08/12/24 2:00:00 AM CDT, Pharmacy : [facility] Oral (given by mouth) Complet ed 08/12/2024 4 2024 90[facility] [place] methocarbam ol (U/D) 500 MG ORAL TAB May cause drowsine ss. 07/23/2024 [id number] 4 2023 56 [facility] [place], [place] Robaxin 500 mg oral tablet 2 tab(s), Oral, QID, X 7 days, # 56 tab(s), 0 total refill(s ), Acute, Pharmacy : [facility] Oral (given by mouth) Complet ed 07/31/2023 4 2023 56.[facility] Allergies, Adverse Reactions, Alerts Combined list of allergies from Department of Defense and Veterans Affairs facilities. It does not include entries that were removed or entered in error. Substance Category Reaction Severity Reaction type Status Date Reported Comments Source No Known Allergies Drug allergy (disorder) active 07/24/2023 [facility] [place] Immunizations Combined list of available immunizations from the Department of Defense and Veterans Affairs facilities. Immunization Series Date Given Administered By Site Reaction Lot Number CVX Code Drug Psychiatric Specialist Status Comments Source COVID-19, mRNA, LNP-S, PF, 30 mcg/0.3 mL dose 2020 [place] (PFR) Not Given COVID-19, mRNA, LNP-S, PF, 30 mcg/0.3 mL dose DoD COVID-19, mRNA, LNP-S, PF, 30 mcg/0.3 mL dose 2020 [place] (PFR) Not Given COVID-19, mRNA, LNP-S, PF, 30 mcg/0.3 mL dose DoD tetanus toxoid, reduced diphtheria toxoid, and acellular pertu is vaccine, adsorbed 1 2011 JAY MA [id number] [address] [place] [address] (SKB) complet ed tetanus toxoid, reduced diphtheri [...] live, attenuated, for intranasal use 0 2010 [id number] [employer]. (MED) complet ed influenza virus vaccine, live, attenuate d, for intranasa l use DoD influenza virus vaccine, live, attenuated, for intranasal use 0 2009 [id number] [employer] (MED) complet ed influenza virus vaccine, live, attenuate d, for intranasa l use DoD typhoid Vi capsular polysaccharid e vaccine 2 2009 UNK 101 Sanofi Pasteur ([facility]) complet ed typhoid Vi capsular polysacch aride vaccine DoD meningococcal polysaccharid e (groups A, C, Y and W-135) diphtheria toxoid conjugate vaccine (MCV4P) 0 2009 [id number] Sanofi Pasteur ([facility]) complet ed meningoco ccal polysacch aride (groups A, C, Y and W-135) diphtheri a toxoid conjugate vaccine (MCV4P) DoD Novel influenza-H1N 1-09, injectable 0 2009 [id number] 127 (AG) complet ed Novel influenza -[id number], injectabl e DoD influenza virus vaccine, live, attenuated, for intranasal use 0 2008 [id number] 111 [employer] (MED) complet ed influenza virus vaccine, live, attenuate d, for intranasa l use DoD influenza virus vaccine, live, attenuated, for intranasal use 0 2007 UNK 111 Unknown (UNK) comple t ed influenza virus vaccine, live, attenuate d, for intranasa l use DoD influenza virus vaccine, live, attenuated, for intranasal use 0 2006 UNK 111 [employer] (MED) complet ed influenza virus vaccine, live, attenuate d, for intranasa l use DoD influenza virus vaccine, split virus (incl. purified surface antigen)-reti red CODE 0 2005 UNK 15 [employer] (PWJ) complet ed influenza virus vaccine, split virus (incl. purified surface antigen)- retired CODE DoD influenza virus vaccine, split virus (incl. purified surface antigen)-reti red CODE 0 2004 [id number] 15 Sanofi Pasteur ([facility]) complet ed influenza virus vaccine, split [...] vaccine DoD poliovirus vaccine, inactivated 1 2003 [id number] 10 Sanofi Pasteur ([facility]) complet ed polioviru s vaccine, inactivat ed DoD yellow fever vaccine 1 2003 [id number] Sanofi Pasteur ([facility]) complet ed yellow fever vaccine DoD hepatitis A and hepatitis B vaccine 2 2003 [id number] 104 [employer] ([facility]) complet ed hepatitis A and hepatitis B vaccine DoD measles, mumps and rubella virus vaccine 1 2003 [id number] Merck (MSD) complet ed measles, mumps and rubella virus vaccine DoD hepatitis A and hepatitis B vaccine 1 2003 [id number] 104 [employer] (SK) complet ed hepatitis A and hepatitis B vaccine DoD tetanus and diphtheria toxoids, adsorbed, preservative free, for adult use (2 Lf of tetanus toxoid and 2 Lf of diphtheria toxoid) 1 2003 [id number] Sanofi Pasteur ([facility]) complet ed tetanus and diphtheri a toxoids, adsorbed, preservat cain free, for adult use (2 Lf of tetanus toxoid and 2 Lf of diphtheri a toxoid) DoD meningococcal polysaccharid e vaccine (MPSV4) 1 2003 [id number] 32 Sanofi Pasteur ([facility]) complet ed meningoco ccal polysacch aride vaccine (MPSV4) DoD Results Combined list of recent chemistry, hematology and other laboratory results from Department of Defense and Veterans Affairs, ranging from 15 months to all on record, depending upon the facility. Order Name Results Value Reference Range Date Interpretation Specimen Comments Source Chemistry POC U HCG Negative (07/31/23 11:58 AM) 07/[address] [place] [address] [place] Vital Signs Combined list of inpatient and outpatient Vital Signs from Department of Defense and Veterans Affairs, ranging from 12 months to all on record, depending upon the facility. Vital Sign Value Date Comments Source BP Site Right arm 07/24/2023 15:03:[address] [place] [address] [place] Mean Arterial Pressure, Cuff (Calc) 106 mm[Hg] 07/24/2023 15:03:[address] [place] [address] [place] Respiratory Rate 14 br/min 07/24/2023 15:03:[address] [place] [address] Aisha Blood Pressure Manual Automatic 07/24/2023 15:03:[address] [place] [address] [place] Peripheral Pulse Rate 91 bpm 07/24/2023 15:03:[address] [place] [address] [place] Systolic Blood Pressure 137 mm[Hg] 07/24/19 15:03:[address] [place] [address] [place] Diastolic Blood Pressure 91 mm[Hg] 15:03:[address] [place] [address] [place] Temperature Oral 36.7 Nereida 07/24/2023 15:03:[address] [place] [address] Aisha Peripheral Pulse Rate 85 bpm 07/31/2023 17:34:[address] [place] [address] [place] Systolic Blood Pressure 142 mm[Hg] 07/31/19 17:34:[address] [place] [address] [place] Diastolic Blood Pressure 90 mm[Hg] 17:34:[address] [place] [address] [place] Temperature Oral 36.6 Nereida 07/31/2023 17:34:[address] [place] [address] Aisha Respiratory Rate 18 br/min 07/31/2023 17:34:[address] [place] [address] [place] Mean Arterial Pressure, Cuff (Calc) 97 mm[Hg] 07/29/2023 15:16:[address] [place] [address] Aisha BP Site Left arm 07/29/2023 15:16:[address] [place] [address] Aisha Temperature Oral 36.7 Nereida 07/29/2023 15:16:[address] [place] [address] Aisha Peripheral Pulse Rate 74 bpm 07/29/2023 15:16:[address] [place] [address] [place] Blood Pressure Manual Automatic 07/29/2023 15:16:[address] [place] [address] [place] Systolic Blood Pressure 129 mm[Hg] 07/29/19 24 15:16:[address] [place] [address] [place] Diastolic Blood Pressure 81 mm[Hg] 024 15:16:[address] [place] [address] Aisha Respiratory Rate 16 br/min 07/29/2023 15:16:[address] [place] [address] [place] Encounters Combined list of: 1) Encounters from Department of [facility] Affairs facilities going backup to the last 18 months, not all VA inpatient encounters are included; 2) Encounters from the Department of [facility] facilities going backup to 280 months. Location Location Details Encounter Type Encounter Number Reason For Visit Attending Provider ADM Date DC Date Status Disposition Source [facility](Mi litary Sick Call [facility]) OUTPATIENT [id number] pre comm NABIL ABREU 11/03 Released w/o Limitations [facility]( Militar y Sick Call [facility] 237) [facility](Op tometry [facility]) OUTPATIENT [id number] Notes Entered by: RADHA CHAVEZ 04 Nov 2011 1034 ------- ------- ------- ------- -- Pre Comm IRENE Jean 11/03 Released w/o Limitations [facility]( Optomet ry [facility] 237) [facility] OUTPATIENT [id number] Notes Entered by: LUZ SAWANT 04 Nov 2011 1237 ------- ------- ------- ------- -- HCP+HPD TARIK MENDES 11/03 Released w/o Limitations [facility]( [facility]) [facility](Im munizatio n [facility] 237) OUTPATIENT [id number] Notes Entered by: GLADYS CERDA 04 Nov 2011 1248 ------- ------- ------- ------- -- TDAP JAY MA 11/03 Released w/o Limitations Tarik Hernandez [facility]( Immuniz ation [facility] 237) Procedures Combined list of: 1) Procedures from Department of Veterans Affairs facilities [facility], not all VA non-surgical procedures are included; 2) All procedures from the Department of Defense facilities. Procedure Procedure Type Code Date Perfomer Comments Sourc e No data available for this section Ambulato ry Pharmacy Ear Protector Attenuation Measurements Ear Protector Attenuation Measurements 31685 11/06/19 12 TARIK MENDES [facility] Threshold Audiogram (Pure Tone) Threshold Audiogram (Pure Tone) 19118 11/06/19 12 TARIK MENDES [facility] Tdap Vaccine Seven Years Of Age And Above Tdap Vaccine Seven Years Of Age And Above 17524 11/05/19 12 JAY MA [facility] Immunization Administration One Vaccine Immunization Administration One Vaccine 22743 11/05/19 12 JAY MA [facility] Visual Function Screening Visual Function Screening 22151 11/04/19 12 VALORIE CHAVEZ [facility] PATIENT EDUCATION, NOT OTHERWISE CLASSIFIED, NON-PHYSICIAN PROVIDER, INDIVIDUAL, PER SESSION 02/21/19 05 [facility] PATIENT EDUCATION, NOT OTHERWISE CLASSIFIED, NON-PHYSICIAN PROVIDER, INDIVIDUAL, PER SESSION 02/15/20 04 [facility] CERVICAL OR VAGINAL CANCER SCREENING; PELVIC AND CLINICAL BREAST EXAMINATION 11/08/19 04 [facility] PURE TONE AUDIOMETRY (THRESHOLD); AIR ONLY 10/20/19 04 [facility] EDUCATIONAL SUPPLIES, SUCH BOOKS, TAPES, AND PAMPHLETS, FOR THE PATIENT'S EDUCATION AT COST TO PHYSICIAN OR OTHER QUALIFIED HEALTH IMMERSION METALCLEANER 08/02/19 05 [facility] NONINVASIVE EAR OR PULSE OXIMETRY FOR OXYGEN SATURATION; SINGLE DETERMINATION 05/25/19 05 [facility] SCREENING TEST OF VISUAL ACUITY, QUANTITATIVE, BILATERAL 05/22/19 05 [facility] SPECIAL REPORTS SUCH INSURANCE FORMS, MORE THAN THE INFORMATION CONVEYED IN THE USUAL MEDICAL COMMUNICATIONS OR STANDARD REPORTING FORM 05/22/19 05 [facility] TETANUS, DIPHTHERIA TOXOIDS AND ACELLULAR PERTUSSIS VACCINE (TDAP), WHEN ADMINISTERED TO INDIVIDUALS 7 YEARS OR OLDER, FOR INTRAMUSCULAR USE 11/04/19 [facility] PURE TONE AUDIOMETRY (THRESHOLD); AIR ONLY 11/04/19 [facility] VIS FUNCT SCREEN,AUTOMAT/NAVDEEP I-AUTOMAT BILAT QUANT DETERM VISUAL ACUITY,OCULAR ALIGN,COLOR VISION,PSEUDOISOCH ROMAT PLATES,& FIELD VIS (MAY INC ALL/SOME SCRN DETERM FOR CONTRAST SENSITIV,VIS UND GLARE) 11/04/19 [facility] Social History Combined list of available smoking, tobacco, and other social history from Department of Defense and Veterans Affairs facilities. Social History Type Response Date Comment Sourc e Sex Representation Female (finding) 03/10/2023 Unknown Organization Sexual Orientation [facility] Pharmacy Gender identity [facility] Pharmacy This section is an empty social history section. [facility] Assessment and Plan Combined list of future [...] Follow these instructions at home: Medicines Take kkrv-pji-ntlugoc and prescription medicines only as told by [...] for Headache and Migraine Patients (CHAMP): [email or web address] Chinese Migraine Foundation: [email or web address] g National Headache Foundation: [...] provider. Document Revised: 09/30/2022 Document Reviewed: 09/30/2022 [employer] Patient Education 2023 [employer] General Headache Without Cause A headache [...] help with your condition: Managing pain Take xqpo-mtt-irviiki and prescription medicines only as told by [...] provider. Document Revised: 07/04/2021 Document Reviewed: 07/04/2021 [employer] Patient Education 2023 [employer] Orthopedics Neck Exercises Ask your health [...] provider. Document Revised: 07/31/2021 Document Reviewed: 07/31/2021 [employer] Patient Education # 8 [employer]. Extracted from:Title: Office Clinic Note Author: FRANCIE [...] Acute, 08/12/2024, 1 tab(s) Oral TID, Pharmacy: [facility] [Not filled] methocarbamol(Robaxin 500 mg oral tablet), 2 tab(s), Oral, QID, X 7 days, # 56 tab(s), 0 total refill(s), Acute, 2 tab(s) Oral QID,x7 days, Pharmacy: [facility] [Not filled] LCDR Francie Ortiz PA-C Staff Family Medicine [facility] 09/27/2024 002-[facility] Functional Status Combined list of recent functional and cognitive assessments recorded at Department of Defense and Veterans Affairs (VA).VA Functional [place] Measurement (FIM) Scale: 1 = Total Assistance (Subject = 0% +), 2 = Maximal Assistance (Subject = 25% +), 3 = Moderate Assistance (Subject = 50% +), 4 = Minimal Assistance (Subject = 75% +), 5 = Supervision, 6 = Modified [place] (Device), 7 = Complete [place] (Timely, Safely). Assessment Date/Time Source Assessment Type Assessment Skill Assessment Score Assessment Details No data available for this section
[2024-09-27 07:54] LABS: Glucose Fasting Gestational 90 mg/dL (>/=95)
[2024-09-27 09:23] LABS: Glucose 1 Hour Gest 176 mg/dL (>/=180)
[2024-09-27 10:16] LABS: Glucose 2 Hour Gest 155 mg/dL (>/= 155)
[2024-09-27 11:37] LABS: Glucose 3 Hour Gest 97 mg/dL (>/=140)
== END 2024-09-27 07:11 | disposition home or self-care (01) ==
PROVIDERS: PCP Family Medicine; Visit Provider Nurse Practitioner Family
DX: O99.810 Abnormal glucose complicating pregnancy (principal); Z3A.00 Weeks of gestation of pregnancy not specified
CPT/HCPCS: 36415; 82951; 82952

== ENCOUNTER 2024-10-26 10:33 | Outpatient (CLI) | payer OTHER, SELFPAY ==
--- OUTSIDE RECORDS SUMMARY | 2024-10-26 08:15 | XMS_ITS | Encounter Summary ---
Author Organization [facility] Address [address] [facility] [place] [address] Care Team Providers Care Services Clerk Name Role Phone [address] Primary Care Prov ider Unknown, Provider Unavailable Unavailable Reason for Referral * (Routine) - Open Specialty Diagnoses / Procedures Referred By Sherrell wilson Referred To Contact Diagnoses Advanced maternal age, 1st , second trimester (HCC) Chronic hypertension complicating or reason for care during , second trimester (HCC) Encounter for ultrasound to assess growth (HCC) 32 weeks gestation of (HCC) Encounter for other screening follow-up (HCC) Procedures Biophysical Profile w NST Yasmany Albarado MD [address] [address] Phone: tel: fax: Referral ID Status Reason Start Date Expiration Date Visits Re quested Visits Authorized [id number] Open 10/06/2024 10/06/2025 4 4 Reason for Visit * Reason Comments Ultrasound Non-stress Test Biophysical Profile * (Routine) - Open Specialty Diagnoses / Procedures Referred By Sherrell wilson Referred To Contact Diagnoses Advanced maternal age, 1st , second trimester (HCC) Chronic hypertension complicating or reason for care during , second trimester (HCC) Encounter for ultrasound to assess growth (HCC) 32 weeks gestation of (HCC) Encounter for other screening follow-up (HCC) Procedures Biophysical Profile w NST Yasmany Albarado MD [address] [facility] [address] [place] [address] Phone: tel: fax: Referral ID Status Reason Start Date Expiration Date Visits Re quested Visits Authorized [id number] Open 10/06/2024 10/06/2025 4 4 Encounter Details Date Type Department Care Team (Late st Contact Info) Description 10/26/2024 8:15 AM CDT Hospital Encounter [facility] Maternal & Care [address] [place] [address] Jaime Clark DO [address] [facility] [address] [place] [address] DIRECT OF REAL ESTATE Social History Tobacco Use Types Packs/Day Years Used Date Smoking Tobacco: Never Smokeless Tobacco: Never Estimated Date of Delivery Comme nts Yes 12/15/2024 Based on Patient Reported Sex and Gender Information Value Date Recorded Sex Assigned at Not on file Legal Sex Female 11:53 AM RN [facility] Gender Identity Not on file Sexual Orientation Not on file documented as of this encounter Last Filed Vital Signs Vital Sign Reading Time Taken Comments Blood Pressure 128/82 10/26/2024 9:21 AM CDT Pulse 85 10/26/2024 9:21 AM CDT Temperature - - Respiratory Rate - - Oxygen Saturation - - Inhaled Oxygen Concentration - - Weight - - Height - - Body Mass Index - - documented in this encounter Progress Notes * Noris Ferrer RN - 10/26/2024 9:34 AM CDT Patient here today for NST/BPP performed at [place] 32w6d for CHTN. Patient reports positive movement. Denies cramping, contractions, bleeding, and leakage of fluid. Patient denies headache, epigastric pain and visual changes. BP 128/82 Pulse 85 NST reviewed remotely with Dr. Clark as reactive. Noris Ferrer RN 10/26/2024 9:35 AM documented in this encounter Plan of Treatment Upcoming Encounters Date Type Department Care Team (Late st Contact Info) Description 11/02/2024 8:15 AM CDT Hospital Encounter [facility] Maternal & Care [address] [place] [id number] 11/09/2024 8:15 AM CDT Appointment [facility] [address] [place] [phone] 11/16/2024 8:15 AM CDT Appointment [facility] [address] [place] [phone] 11/23/2024 8:15 AM CDT Appointment [facility] [address] [place] [phone] 11/30/2024 8:15 AM CDT Appointment [facility] [address] [place] [phone] 12/07/2024 8:15 AM CDT Appointment [facility] [address] [place] [phone] 12/14/2024 8:15 AM CDT Appointment [facility] [address] [place] [phone] documented as of this encounter Procedures Procedure Name Priority Date/Time Associated Diagnosis Comments BIOPHYSICAL PROFILE W NST Routine 10/26/2024 8:22 AM CDT Primigravida of advanced maternal age in third trimester (HCC) Chronic hypertension complicating or reason for care during , third trimester (HCC) Encounter for ultrasound to assess growth (HCC) 32 weeks gestation of (HCC) Encounter for other screening follow-up ([facility]) documented in this encounter Results * Biophysical Profile w NST (10/26/2024 8:22 AM CDT) Linked Results Indication ======== Supervision of IVF Advanced maternal age (AMA), primigravida Chronic hypertension (CHTN) complicating Maternal obesity complicating , class 1 (BMI 30.0 - 34.9) History ====== OB History 1 Lab Tests Test Date Result preimplantation genetic Normal testing Maternal Assessment Physical Exam Height 160 cm, 5 ft 3 in. Weight 86 kg, 190 lb. Initial weight 83 kg, 183 lb. BMI 33.66 kg/m . Initial BMI 32.42 kg/m . Weight gain 3 kg, 7 lb Method ====== Transabdominal ultrasound. View: Sufficient ========= [place] . Number of fetuses: 1 Dating ====== Date Details Gest. age MARIN LMP 03/08/2024 33 w + 1 d 12/13/2024 Conception Conception: IVF Embryo transfer 03/29/2024 IVF / ET: 5 d 32 w + 6 d 12/15/2024 Stated MARIN 32 w + 6 d 12/15/2024 Previous U/S 04/21/2024 CRL 3.7 mm 32 w + 6 d 12/15/2024 Assigned dating based on the IVF / ET date, selected on 07/28/2024 32 w + 6 d 12/15/2024 General Evaluation Cardiac activity present. FHR 126 bpm. Presentation: cephalic Placenta: Placental site: anterior Amniotic Fluid Assessment ==== Amount of AF: normal MVP 5.4 cm. ALBARO 12.5 cm. Q1 0.0 cm, Q2 5.4 cm, Q3 3.3 cm, Q4 3.9 cm Biophysical Profile 2: breathing movements 2: Gross body movements 2: tone 2: Amniotic fluid volume NST: reactive 11/26 Biophysical profile score Non Stress Test NST interpretation: reactive. Test duration 20 min. Baseline FHR 130 bpm. Baseline variability: moderate. Accelerations: present. Decelerations: absent. Uterine activity: absent Growth Overview Exam date GA BPD (mm) HC (mm) AC (mm) FL (mm) HL (mm) EFW (g) 07/28/2024 20w 0d 49.2 83% 177.9 54% 159.3 78% 33.5 61% 31.3 70% 375 84% 08/27/2024 24w 2d 60.7 59% 232.5 69% 208.4 76% 45.9 67% 42.6 80% 792 83% 09/24/2024 28w 2d 74.3 84% 281.1 89% 250.2 72% 54.1 45% 45.1 8% 1357 72% 10/19/2024 31w 6d 84.3 92% 308.9 82% 289.9 80% 62 44% 54.7 50% 209 74% Anatomy The following structures appear normal: Abdomen Stomach. Kidneys. Bladder. Impression ========= Here today for testing secondary to multiple co morbidities including IVF AMA and chronic hypertension. Single, live, intrauterine at 32w 6d The amniotic fluid volume is normal. The biophysical profile is reassuring 11/26. Comment ======== ultrasound alone cannot detect all structural, genetic, or functional , placental, or maternal abnormalities Follow-up ======== To continue weekly testing and repeat interval growth in 3 weeks. PTL and preeclampsia precautions along with kick counts. Thank you for allowing us to partake in your patient's care. Coding ====== Diagnoses O10.013, I10: Pre-existing essential hypertension complicating , Essential (primary) hypertension O09.513: Supervision of elderly primigravida O09.813: Supervision of resulting from assisted reproductive technology Procedures 77410: Biophysical Profile W NST 40277: US Uterus Limited [employer] PACS Anatomical Region Laterality Modality Other 10/26/2024 8:22 AM CDT us Yasmany Frazier MD [facility] ORDERABLES Edited Result - Final documented in this encounter Visit Diagnoses Diagnosis Chronic hypertension complicating or reason for care during , second trimester (HCC)- Primary Advanced maternal age, 1st , second trimester (HCC) Encounter for ultrasound to assess growth (HCC) Encounter for other screening follow-up ([facility]) 32 weeks gestation of (HCC) state, incidental Primigravida of advanced maternal age in third trimester (HCC) Chronic hypertension complicating or reason for care during , third trimester (HCC) Chronic hypertension complicating or reason for care during , third trimester (HCC)- Primary Advanced maternal age, 1st , third trimester (HCC) Encounter for ultrasound to assess growth ([facility]) Encounter for other screening follow-up ([facility]) 33 weeks gestation of (HCC) state, incidental documented in this encounter Care Teams Services Clerk Relationship Specialty Start Date End Date [facility], [address] [place] [address] [address] [place] [address] PCP - General Family Medicine 02/09/17 Unknown, Provider [address] [place] [address] 02/09/17 documented as of this encounter
[2024-10-26 11:15] LABS: Hematocrit 36.6 % (37.0-47.0); Hemoglobin 11.9 g/dL (12.0-15.0); Mean Corpuscular HGB Conc 32.5 g/dl (32-36); Mean Corpuscular Hemoglobin 27.7 pg (26-34); Mean Corpuscular Volume 85.3 fl (80-100); Platelet Count Result 209 k/mm3 (150-375); Red Blood Count 4.29 M/mm3 (4.2-5.4); White Blood Count 10.7 K/mm3 (4.5-10.0)
[2024-10-26 12:05] LABS: Syphilis IgG/IgM Antibody Non-Reactive (Nonreactive)
--- OUTSIDE RECORDS SUMMARY | 2024-10-26 12:14 | XMS_ITS | Clinical Summary ---
Author Organization [facility] Address [address] [place] [address] Care Team Providers Care Vice President Underwriting Name Role Phone [address] Primary Care Prov ider Unknown, Provider Unavailable Unavailable Source Comments [facility],non-owned Affiliates and Associated Physician Practices is amultiple site organization consisting of ambulatory clinics and hospital sitesin [place], [place], [place] and [place]. This disclosure is being madepursuant to the Care Everywhere program and may not contain all information available regarding this patient. Last updated 17.[facility] Allergies No known active allergies Medications * [...] Encounters Date Type Department Care Team Description 10/26/2024 8:15 AM CDT Hospital Encounter [facility] [address] [place] [address] Jaime Clark DO TOURIST GUIDE 10/19/2024 8:15 AM CDT - 10/19/2024 11:59 PM CDT Hospital Encounter [facility] [address] [place] [address] 15[address] Gonzalo Hedrick MD Discharge Disposition: Home or Self Care 09/24/2024 9:39 AM CDT - 09/24/2024 11:59 PM CDT Hospital Encounter [facility] [address] [place] [address] 14[address] Julio Noel MD Discharge Disposition: Home or Self Care 08/31/2024 Orders Only [facility] [address] [place] [address] 63684 Noris Ferrer RN 08/27/2024 11:01 AM CDT - 08/27/2024 11:59 PM CDT Hospital Encounter [facility] [address] [place] [address] 32904 Merari Guillory MD TOURIST GUIDE Discharge Disposition: Home or Self Care 07/28/2024 8:53 AM CDT - 07/28/2024 11:59 PM CDT Hospital Encounter [facility] [address] [place] [address] Julio Noel MD Discharge Disposition: Home or Self Care 07/28/2024 8:49 AM CDT - 07/28/2024 8:52 AM CDT Hospital Encounter [facility] [address] [place] [address] 20009 Julio Noel MD Discharge Disposition: Home or [...] on file 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[employer] Gender Identity Not on file Sexual Orientation Not on file Last Filed Vital Signs Vital Sign Reading Time Taken Comments Blood Pressure 128/82 10/26/2024 9:21 AM CDT Pulse 85 10/26/2024 9:21 AM CDT Temperature 36.7 C (98 F) 06/05/2020 3:02 PM CDT Respiratory Rate 20 06/05/2020 3:02 PM CDT Oxygen Saturation 99% 02/09/2017 3:06 PM SUPERVISOR [employer] Inhaled Oxygen Concentration - - Weight 81.2 kg (179 lb) 07/28/2024 10:54 AM CDT Height 160 cm (5' 3) 07/28/2024 9:54 AM CDT Body Mass Index 31.71 07/28/2024 9:54 AM CDT Plan of Treatment Upcoming Encounters Date Type Department Care Team (Late st Contact Info) Description 11/02/2024 8:15 AM CDT Hospital Encounter [facility] [address] [place] [address] 11/09/2024 8:15 AM CDT Appointment [facility] [address] [place] [address] 11/16/2024 8:15 AM CDT Appointment [facility] [address] [place] [address] 11/23/2024 8:15 AM CDT Appointment [facility] [address] [place] [address] 110[address] 11/30/2024 8:15 AM CDT Appointment [facility] [address] [place] [address] 12/07/2024 8:15 AM CDT Appointment [facility] [address] [place] [address] 12/14/2024 8:15 AM CDT Appointment [facility] [address] [place] [address] Health Maintenance Due Date Last Done Comments HIV SCREENING 2000 DTAP/TDAP/TD VACCINES (1 - Tdap) 2004 HEPATITIS B VACCINE (1 of 3 - 19+ 3-dose series) 2004 PAP SMEAR 2006 HPV VACCINE (1 - 3-dose SCDM series) 2012 DEPRESSION SCREENING 02/18/2024 OB-ONE HOUR GLUCOSE 09/08/2024 OB-TDAP CURRENT 09/15/20242015, 11/04/2011 OB-RHOGAM INJECTION 09/22/2024 COVID-19 VACCINE (3 - 2024-2 6 season) 2024 09/18/2020, 08/27/2020 INFLUENZA VACCINE (#1) 2024 11/18/2019 Respiratory Syncytial Virus (RSV) Vaccine Pt: or [...] (HCC) Encounter for other screening follow-up (HCC) BIOPHYSICAL PROFILE W NST Routine 10/19/2024 8:21 AM CDT Primigravida of advanced maternal age in third trimester (HCC) Chronic hypertension complicating or reason for care during , third trimester (HCC) Encounter for ultrasound to assess growth (HCC) 32 weeks gestation of (HCC) Encounter for other screening follow-up (HCC) SONOGRAM - COMPLETE Routine 09/24/2024 1 0:15 AM CDT Encounter for anatomic survey (HCC) resulting from in vitro fertilization in second trimester (HCC) 20 weeks gestation of (HCC) SONOGRAM - COMPLETE Routine 08/27/2024 1 1:27 AM CDT Encounter for anatomic survey (HCC) resulting from in vitro fertilization in second trimester (HCC) 20 weeks gestation of (HCC) SONOGRAM - COMPLETE Routine 07/28/2024 8 :54 AM CDT Encounter for anatomic survey (HCC) resulting from in vitro fertilization in second trimester (HCC) 20 weeks gestation of (HCC) from Last 3 Months Results * Biophysical Profile w NST (10/26/2024 8:22 AM CDT) Only the most recent of2 resultswithin the time period is included. Linked Results Indication ======== Supervision of IVF [...] 82% 289.9 80% 62 44% 54.7 50% 2092 74% Anatomy The following structures appear normal: [...] of resulting from assisted reproductive technology Procedures 63505: Biophysical Profile W NST 91890: US Uterus Limited [employer] PACS Anatomical Region Laterality Modality Other 10/26/2024 8:22 AM CDT us Yasmany Frazier MD [facility] ORDERABLES Edited Result - Final * SONOGRAM - COMPLETE (09/24/2024 10:15 AM CDT) Only the most recent of3 resultswithin the time period is included. Linked Results Indication ======== Supervision of IVF Advanced maternal age (AMA), primigravida Chronic hypertension (CHTN) complicating AMA 39 years, IVF with reportedly negative PGT-A, Possible cHTN on no meds History ====== OB History 1 Lab Tests Test Date Result preimplantation genetic Normal testing Maternal Assessment Physical Exam Height 160 cm, 5 ft 3 in. Weight 85 kg, 188 lb. Initial weight 83 kg, 183 lb. BMI 33.30 kg/m . Initial BMI 32.42 kg/m . Weight gain 2 kg, 5 lb Method ====== Transabdominal ultrasound. View: Sufficient ========= Ojeda . Number of fetuses: 1 Dating ====== Date Details Gest. age MARIN LMP 03/08/2024 28 w + 4 d 12/13/2024 Conception Conception: IVF Embryo transfer 03/29/2024 IVF / ET: 5 d 28 w + 2 d 12/15/2024 Stated MARIN 28 w + 2 d 12/15/2024 Previous U/S 04/21/2024 CRL 3.7 mm 28 w + 2 d 12/15/2024 U/S 09/24/2024 based upon AC, BPD, Femur, HC 29 w + 5 d 12/05/2024 Assigned dating based on the IVF / ET date, selected on 07/28/2024 28 w + 2 d 12/15/2024 General Evaluation Cardiac activity present. FHR 145 bpm. Presentation: cephalic Placenta: Placental site: posterior Amniotic fluid: Amount of AF: normal. MVP 7.5 cm. ALBARO 22.0 cm. Q1 7.4 cm, Q2 4.7 cm, Q3 2.4 cm, Q4 7.5 cm Biometry BPD 74.3 mm 29w 6d 84% Hadlock HC 281.1 mm 30w 6d 89% Hadlock AC 250.2 mm 29w 2d 72% Hadlock Femur 54.1 mm 28w 4d 45% Hadlock Humerus 45.1 mm 26w 5d 8% Elicia HC / AC 1.12 Weight Calculation: EFW 1,357 g 72% Hadlock EFW (lb,oz) 3 lb 0 oz EFW by Hadlock ([id number]) appropriate Growth Overview Exam date GA BPD (mm) HC (mm) AC (mm) FL (mm) HL (mm) EFW (g) 07/28/2024 20w 0d 49.2 83% 177.9 54% 159.3 78% 33.5 61% 31.3 70% 375 84% 08/27/2024 24w 2d 60.7 59% 232.5 69% 208.4 76% 45.9 67% 42.6 80% 792 83% 09/24/2024 28w 2d 74.3 84% 281.1 89% 250.2 72% 54.1 45% 45.1 8% 1357 72% Anatomy The following structures appear normal: Abdomen Stomach. Kidneys. Bladder. Impression ========= Single, live, intrauterine at 28w 2d The size is appropriate. The amniotic fluid volume is subjectively upper normal. No major malformations were seen within the limits of ultrasound. Follow-up ======== Review GDM screening results Follow up U/S for growth and to begin weekly testing at 32 weeks Coding ====== Diagnoses O10.013, I10: Pre-existing essential hypertension complicating , Essential (primary) hypertension O09.513: Supervision of elderly primigravida O10.013, I10: Pre-existing essential hypertension complicating , Essential (primary) hypertension O09.513: Supervision of elderly primigravida O09.813: Supervision of resulting from assisted reproductive technology Procedures 89760: US Preg Uterus Follow Up [facility] [employer] PACS Anatomical Region Laterality Modality Other 09/24/2024 10:1 5 AM CDT Yasmany Frazier MD [facility] ORDERABLES Edited Result - Final from Last 3 Months Insurance [facility] Care Teams Vice President Underwriting Relationship Specialty Start Date End Date [facility] [address] [facility], [place] [address] PCP - General Family Medicine 02/09/17 Unknown, Provider [address], [place] [address] 02/09/17
--- OUTSIDE RECORDS SUMMARY | 2024-10-26 12:15 | XMS_ITS | Encounter Summary ---
Author Organization [facility] Address [address] [place] [address] Care Team Providers Care Haulpak Driver Name Role Phone Bryant Saleh MD Primary Care Provider [phone] Garry Balbuena MD Primary Care Provider [phone] Red Castro MD Unavailable [phone] Encounter Details Date Type Department Care Team (Late st Contact Info) Description 11/07/2017 Abstract [facility] Family Medicine - [place] [address], [address] [place] [phone] Garry Balbuena MD [address] [place], [place] [id number] Social History Tobacco Use Types Packs/Day Years [...] on filedocumented in this encounter Care Teams Haulpak Driver Relationship Specialty Start Date End Date Bryant Saleh MD [address] '[place], [place] [phone] PCP - General 02/22/16 01/13/18 Garry Balbuena MD [address] [place] [address] PCP - General FAMILY PRACTICE 01/14/18 07/26/24 Red Castro MD Three [facility]. [address] [place] [address] Gabby Cloth Finishing Range Back Tender CARDIOVASCULAR DISEASE 09/30/18 documented as of this encounter
--- OUTSIDE RECORDS SUMMARY | 2024-10-26 12:15 | XMS_ITS | Clinical Summary ---
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 Not on file Not on fi le Last Filed Vital Signs Vital Sign Reading Time Taken Comments Blood Pressure 112/82 04/20/2019 8:30 AM LEAD CARGO MOVER Pulse 64 04/20/2019 8:30 AM LEAD CARGO MOVER Temperature 36.4 C (97.6 F) 04/20/2019 8:30 AM LEAD CARGO MOVER Respiratory Rate 18 04/20/2019 8:30 AM LEAD CARGO MOVER Oxygen Saturation 100% 04/20/2019 8:30 AM LEAD CARGO MOVER Inhaled Oxygen Concentration - - Weight 70.4 kg (155 lb 3.2 oz) 04/20/2019 8:30 A M LEAD CARGO MOVER Height 162.6 cm (5' 4) 04/20/2019 8:30 AM LEAD CARGO MOVER Body Mass Index 26.64 04/20/2019 8:30 AM LEAD CARGO MOVER Plan of Treatment Health Maintenance Due Date Last Done Comments Cervical Cancer Screening Pa p Smear (Age 30 to 64) Every 3 Years 1985 Hepatitis C 2003 Hepatitis B Vaccines (1 of 3 - 19+ 3-dose series) 2004 HPV Vaccines (1 - 3-dose SCD M series) 2012 Annual Physical 04/19/2020 04/20/2019 COVID-19 Vaccine ( - 2023-2 5 season) 2024 Cervical Cancer Screening Pa p with HPV Testing (Age 30 to 64) Every 5 Years 04/13/2025 04/13/2020 Cervical Cancer Screening with HPV 04/13/2025 DTaP, Tdap and Td Vaccines ( 1 - Tdap) 04/19/2025 Postponed from 03/31 (Awaiting Documentation) Meningococcal B Vaccine Aged Out No l [...] Relevant to Health Maintenance Insurance Care Teams Porter Marina Relationship Specialty Start Date End Date Red Castro MD [facility] [address] [place] [address] [place] Steward/Stewardess Chief Cargo Vessel CARDIOVASCULAR DISEASE 09/30/18
--- OUTSIDE RECORDS SUMMARY | 2024-10-26 12:15 | XMS_ITS | Clinical Summary ---
Author Organization [facility] [address] Address [address] [place] [phone] Care Team Providers Care Orderly Name Role Phone Donnie Anne MD Primary Care Provider [phone] Yasmany Toribio MD Unavailable [phone] Allergies No known active allergies Medications Pregnyl [...] carpal tunnel syndrome 01/16/2018 Primary dysthymia 02/29/2016 Encounters Date Type Department Care Team Description 09/28/2024 Orders Only [facility] Primary Care at [address] [address] Provider, MD oTbi from Last 3 Months Immunizations Immunization Administration Dates Next Due Influenza, [...] Health Maintenance Due Date Last Done Comments Varicella Vaccines (1 of 2 - 13+ 2-dose series) 1998 HPV Vaccines (1 - 3-dose SCD M series) 2012 Cervical Cancer Screening 04/13/2021 04/13/2020 Depression Screening 10/12/2024 10/13/2023, 10/10/2022, 10/10/2021 Regular Well Visit/Exam 18-64 10/12/2024, 10/10/2022, 10/10/2021 Covid-19 Vaccine (3 - 2024-2 6 season) 2024 09/18/2020, 08/27/2020 Influenza Vaccine (#1) 2024 DTaP/Tdap/Td Vaccine (2 - Td or Tdap) 08/01/2025 08/02/2015 Hepatitis B Screening Completed 10/13/2023 Hepatitis C Screening Completed 10/13/2023 Pneumococcal vaccine <65 Aged Out No longer eligible based on patient's age to complete this topic Procedures Procedure Name Priority Date/Time Associated Diagnosis Comments CBC - COMPLETE BLOOD COUNT - [facility] Routine 09/28/2024 9:37 AM CDT GLUCOSE Routine 09/28/2024 9:37 AM CDT HEP B SURF AG W/CONF Routine 09/28/2024 9:37 AM CDT HEPATITIS C ANTIBODY Routine 10/13/2023 2:30 PM CDT Need for hepatitis C screening test HM PAP SMEAR WITH HPV Routine 04/13/2020 from Last 3 Months or Most Recently Relevant to Health Maintenance Results * Glucose (09/28/2024 9:37 AM CDT) Historical Provider LAB BLOOD ORDERABLES Amarilis l Result * CBC - Complete Blood Count - [facility] (09/28/2024 9:37 AM CDT) Historical Provider LAB BLOOD ORDERABLES Amarilis l Result * HEP B SURF AG W/CONF (09/28/2024 9:37 AM CDT) Historical Provider LAB MICROBIOLOGY - GENERA L ORDERABLES Final Result * Hepatitis C antibody Blood (10/13/2023 2:30 [...] GENERAL ORDERABLES Final Result Performing Organization Address City/State/[facility] [place] Phone Number [facility] [address] Department [place] [address] * HM PAP SMEAR WITH HPV (04/13/2020) Scribed Pap Smear w/HPV Normal Narrative Radha Guerrero MA - 04/13/2020 In care everywhere Historical Provider HEALTH MAINTENANCE Final Result from Last 3 Months or Most Recently Relevant to Health Maintenance Insurance [facility] CLAIMS [facility] [employer] Care Teams Orderly Relationship Specialty Start Date End Date Donnie Anne MD [address] [place] [address] PCP - General Family Medicine 10/10/21 Yasmany Toribio MD [address] [facility] [address] [place] [address] Referring Physician Obstetrics and Gynecology 10/10/21
[2024-10-26 12:18] LABS: HIV 1/2 Ab P24 Ag Result Negative (Negative)
== END 2024-10-26 10:34 | disposition home or self-care (01) ==
LOC: ANHLAB 10:33
PROVIDERS: Visit Provider Obstetrics & Gynecology
DX: Z34.90 Encounter for supervision of normal pregnancy, unspecified, unspecified trimester (principal)
CPT/HCPCS: 36415; 85027; 86593; 86703; G0432

== ENCOUNTER 2024-11-13 17:15 | Outpatient (CLI) | payer OTHER, SELFPAY ==
[2024-11-13 17:42] VITALS: BP 131/79; PULSE 83
[2024-11-13 17:46] VITALS: BP 133/84; PULSE 87
[2024-11-13 17:48] LABS: Hematocrit 34.0 % (37.0-47.0); Hemoglobin 11.3 g/dL (12.0-15.0); Immature Granulocyte Percent A 0.5 % (0-0.5); Lymphocytes Absolute Auto 2.68 K/mm3 (0.9-3.2); Mean Corpuscular HGB Conc 33.2 g/dl (32-36); Mean Corpuscular Hemoglobin 27.6 pg (26-34); Mean Corpuscular Volume 82.9 fl (80-100); Nucleated Red Blood Cells Absolute Auto 0.000 K/mm3 (0.0-0.012); Nucleated Red Blood Cells Perc 0.0 % (0.0-0.2); Platelet Count Result 199 k/mm3 (150-375); Red Blood Count 4.10 M/mm3 (4.2-5.4); White Blood Count 10.9 K/mm3 (4.5-10.0)
[2024-11-13 18:00] LABS: Add Urine Microscopic? YES; Appearance Urine Clear (Clear); Glucose Urine UA Negative (Negative); Leukocyte Esterase Ur Negative LEU/UL (Negative); Nitrate Urine Negative (Negative); Non Pathogenic Casts 0-2; Specific Grav Ur 1.017 (1.001-1.035)
[2024-11-13 18:01] VITALS: BP 132/84; PULSE 88
[2024-11-13 18:02] LABS: Alanine Aminotransferase 20 U/L (6-35); Albumin Level 3.4 g/dL (3.5-5.1); Alkaline Phosphatase 123 U/L (38-126); Anion Gap 8 mmol/L (4-12); Aspartate Amino Transferase 28 U/L (14-36); Bilirubin,Total 0.2 mg/dL (0.2-1.3); Blood Urea Nitrogen 8 mg/dL (7-17); Calcium 8.9 mg/dL (8.4-10.2); Carbon Dioxide 20 mmol/L (22-30); Chloride 105 mmol/L (98-107); Estimated Glomerular Filt Rate > 60; Glucose 115 mg/dL (65-110); Potassium 3.6 mmol/L (3.4-5.0); Sodium 133 mmol/L (137-145); Total Protein 6.7 g/dL (6.3-8.2); Uric Acid 3.2 mg/dL (2.5-7.5)
[2024-11-13 18:05] LABS: Total Protein Urine Random 9 mg/dL; Ur Ttl Prot Creatinine Ratio 0.09 mg/mg (0-0.20)
[2024-11-13 18:16] VITALS: BP 135/85; PULSE 96
[2024-11-13 18:18] VITALS: TEMP 36.6
== END 2024-11-13 18:20 | disposition home or self-care (01) ==
LOC: ANHOBOP 17:19 → ANHOBPP 17:21
PROVIDERS: Obstetrics & Gynecology; Visit Provider Obstetrics & Gynecology
DX: O13.9 Gestational [pregnancy-induced] hypertension without significant proteinuria, unspecified trimester (principal); Z3A.00 Weeks of gestation of pregnancy not specified
CPT/HCPCS: 36415; 80053; 81001; 82570; 84156; 84550; 85025

== ENCOUNTER 2024-11-20 22:17 | Outpatient (CLI) | payer OTHER, SELFPAY ==
--- OUTSIDE RECORDS SUMMARY | 2024-11-20 22:23 | XMS_ITS | Encounter Summary ---
Author Organization [facility] Address [address] [place] [address] Care Team Providers Care Category Analyst Name Role Phone Bryant Saleh MD Primary Care Provider [phone] Garry Balbuena MD Primary Care Provider [phone] Red Castro MD Unavailable [phone] Encounter Details Date Type Department Care Team (Late st Contact Info) Description 11/07/2017 Abstract [facility] Family Medicine - [place] [address] [place] [phone] Garry Balbuena MD [address] [place], [place] [phone] Social History Tobacco Use Types Packs/Day Years [...] on filedocumented in this encounter Care Teams Category Analyst Relationship Specialty Start Date End Date Bryant Saleh MD [address] '[place], [place] [phone] PCP - General 02/22/16 01/13/18 Garry Balbuena MD [address] [place] [address] PCP - General FAMILY PRACTICE 01/14/18 07/26/24 Red Castro MD Three [facility]. [address] [place] [address] Gabby Airborne Sensor Specialist CARDIOVASCULAR DISEASE 09/30/18 documented as of this encounter
--- OUTSIDE RECORDS SUMMARY | 2024-11-20 22:23 | XMS_ITS | Clinical Summary ---
Author Organization [facility] [address] Address [address] [place] [address] Care Team Providers Care Interventional Radiologist Name Role Phone Donnie Anne MD Primary Care Provider [phone] Yasmany Toribio MD Unavailable [phone] Allergies No known active allergies Medications Pregnyl [...] Encounters Date Type Department Care Team Description 11/17/2024 Telephone [facility] Medical [facility] Primary Care at [address] [address] Donnie Anne MD auto confirm cancel appt 09/28/2024 Orders Only [facility] Primary Care at [address] [address] Provider, MD Tobi from Last 3 Months Immunizations Immunization Administration [...] Comments CBC - COMPLETE BLOOD COUNT - [facility] Routine 09/28/2024 9:37 AM CDT GLUCOSE Routine 09/28/2024 9:37 AM CDT HEP B SURF AG W/CONF Routine 09/28/2024 9:37 AM CDT HEPATITIS C ANTIBODY Routine 10/13/2023 2:30 PM CDT Need for hepatitis C screening test HM PAP SMEAR WITH HPV Routine 04/13/2020 from Last 3 Months or Most Recently Relevant to Health Maintenance Results * Glucose (09/28/2024 9:37 AM CDT) us Historical Provider LAB BLOOD ORDERABLES Amarilis l Result * CBC - Complete Blood Count - [facility] (09/28/2024 9:37 AM CDT) us Historical Provider LAB BLOOD ORDERABLES Amarilis l Result * HEP B SURF AG W/CONF (09/28/2024 9:37 AM CDT) Result [facility] Provider LAB MICROBIOLOGY - GENERA L ORDERABLES [...] Final Result Performing Organization Address City/State/ZIP Co al Phone Number [facility] [address] [facility] Department [place] [address] * HM PAP SMEAR WITH HPV (04/13/2020) Scribed Pap Smear w/HPV Normal Narrative Radha Guerrero MA - 04/13/2020 In care everywhere Result [facility] Historical Provider HEALTH MAINTENANCE Final Result from Last 3 Months or Most Recently Relevant to Health Maintenance Insurance [facility] CLAIMS [address] CLAIMS Care Teams Interventional Radiologist Relationship Specialty Start Date End Date Donnie Anne MD [address] [place] [address] PCP - General Family Medicine 10/10/21 Yasmany Toribio MD [address] [facility] [address] [address] Referring Physician Obstetrics and Gynecology 10/10/21
--- OUTSIDE RECORDS SUMMARY | 2024-11-20 22:23 | XMS_ITS | Clinical Summary ---
Author Organization [facility] [employer] Address [address] [place] [address] Care Team Providers Care Supervisor Publications Name Role Phone [facility], [address] [place] [address] Primary Care Prov ider Unknown, Provider Unavailable Unavailable Source Comments [facility],non-owned Affiliates and Associated Physician Practices is amultiple site organization consisting of ambulatory clinics and hospital sitesin [place], [place], [place] and [place]. This disclosure is being madepursuant to the Care Everywhere program and may not contain all information available regarding this patient. Last updated 17.[facility] [employer] Allergies No known active allergies Medications * Be aware that medications may not be up to date on this document. Alwaysverify current medications with the patient. Vit-DSS-Fe Fum-FA ( vitamin with iron) tablet Take 1 (one) tablet by mouth once daily Active aspirin (Aspirin) 81 MG chew tablet Take 2 (two) tablets by mouth once daily (chew and swallow) Active Active Problems Problem Noted Date Diagnosed Date resulting from in vitro fertilization in third trimester 11/02/2024 Chronic hypertension complic ating or reason for care during , third trimester 11/02/2024 Advanced maternal age, 1st , third trim wilbert 11/02/2024 Estimated Date of Delivery Comme nts Yes 12/15/2024 Based on Patient Reported Encounters Date Type Department Care Team Description 11/16/2024 8:15 AM CDT - 11/16/2024 11:59 PM CDT Hospital Encounter [facility] Maternal & Care [address] [place] [address] Merari Guillory MD POLY AREA SUPERVISOR Discharge Disposition: Home or Self Care 11/09/2024 8:13 AM CDT - 11/09/2024 11:59 PM CDT Hospital Encounter [facility] & [facility] [address] [place] [address] Julio Noel MD Discharge Disposition: Home or Self Care 11/02/2024 8:13 AM CDT - 11/02/2024 11:59 PM CDT Hospital Encounter [facility] [address] [place] [address] Julio Noel MD Discharge Disposition: Home or Self Care 10/26/2024 8:15 AM CDT - 10/26/2024 11:59 PM CDT Hospital Encounter [facility] & Care [address] [place] [address] Jaime Clark DO POLY AREA SUPERVISOR Discharge Disposition: Home or Self Care 10/19/2024 8:15 AM CDT - 10/19/2024 11:59 PM CDT Hospital Encounter [facility] [address] [place] [address] Gonzalo Hedrick MD Discharge Disposition: Home or Self Care 09/24/2024 9:39 AM CDT - 09/24/2024 11:59 PM CDT Hospital Encounter [facility] [address] [place] [address] Julio Noel MD Discharge Disposition: Home or Self Care 08/31/2024 Orders Only [facility] [address] [place] [address] Noris Ferrer RN 08/27/2024 11:01 AM CDT - 08/27/2024 11:59 PM CDT Hospital Encounter [facility] Care [address] [place] [address] Merari Guillory MD POLY AREA SUPERVISOR Discharge Disposition: Home or Self Care from [...] on file Legal Sex Female 11:53 AM CIRCULATING PROCESS INSPECTOR Gender Identity Not on file Sexual Orientation Not on file Last Filed Vital Signs Vital Sign Reading Time Taken Comments Blood Pressure 128/85 11/16/2024 9:04 AM CDT Pulse 95 11/16/2024 9:04 AM CDT Temperature 36.7 C (98 F) 06/05/2020 3:02 PM CDT Respiratory Rate 20 06/05/2020 3:02 PM CDT Oxygen Saturation 99% 02/09/2017 3:06 PM CIRCULATING PROCESS INSPECTOR Inhaled Oxygen Concentration - - Weight 81.2 kg (179 lb) 07/28/2024 10:54 AM CDT Height 160 cm (5' 3) 07/28/2024 9:54 AM CDT Body Mass Index 31.71 07/28/2024 9:54 AM CDT Plan of Treatment Upcoming Encounters Date Type Department Care Team (Late st Contact Info) Description 11/23/2024 8:15 AM CDT Hospital Encounter [facility] Maternal & Care [address] [place] [address] 11/30/2024 8:15 AM CDT Appointment [facility] M[facility] & Care [address] [place] [address] 12/07/2024 8:15 AM CDT Appointment [facility] [address] [place] [address] 12/14/2024 8:15 AM CDT Appointment [facility] [address] [place] [address] Health Maintenance Due Date Last Done Comments [...] yrs (1 - Risk 1-dose series) 10/20/2024 OB-GROUP B STREP SCREEN 11/10/2024 ZOSTER VACCINE (1 of 2) 2035 HEPATITIS [...] Diagnosis Comments BIOPHYSICAL PROFILE W NST Routine 11/16/2024 8:20 AM CDT Primigravida of advanced maternal age in third trimester (HCC) Chronic hypertension complicating or reason for care during , third trimester ([facility]) Encounter for other screening follow-up ([facility]) 35 weeks gestation of ([facility]) resulting from in vitro fertilization in third trimester ([facility]) BIOPHYSICAL PROFILE W NST Routine 11/09/2024 8:15 AM CDT Primigravida of advanced maternal age in third trimester (HCC) Chronic hypertension complicating or reason for care during , third trimester ([facility]) Encounter for ultrasound to assess growth ([facility]) 32 weeks gestation of ([facility]) Encounter for other screening follow-up (HCC) BIOPHYSICAL PROFILE W NST Routine 11/02/2024 8:14 AM CDT Primigravida of advanced maternal age in third trimester (HCC) Chronic hypertension complicating or reason for care during , third trimester (HCC) Encounter for ultrasound to assess growth (HCC) 32 weeks gestation of (HCC) Encounter for other screening follow-up (HCC) BIOPHYSICAL PROFILE W NST Routine 10/26/2024 8:22 [...] Months Results * Biophysical Profile w NST (11/16/2024 8:20 AM CDT) Only the most recent of5 resultswithin the time period is included. Linked Results Indication ======== Supervision of IVF Advanced maternal age (AMA), primigravida Chronic hypertension (CHTN) complicating Maternal obesity complicating , class 1 (BMI 30.0 - 34.9) History ====== OB History 1 Lab Tests Test Date Result preimplantation genetic Normal testing Maternal Assessment Physical Exam Height 160 cm, 5 ft 3 in. Weight 88 kg, 193 lb. Initial weight 83 kg, 183 lb. BMI 34.19 kg/m . Initial BMI 32.42 kg/m . Weight gain 5 kg, 10 lb Method ====== Transabdominal ultrasound, Transabdominal ultrasound examination. View: Limited by late gestational age, maternal body habitus, and position. ========= Ojeda . Number of fetuses: 1 Dating ====== Date Details Gest. age MARIN LMP 03/08/2024 36 w + 1 d 12/13/2024 Conception Conception: IVF Embryo transfer 03/29/2024 IVF / ET: 5 d 35 w + 6 d 12/15/2024 Stated MARIN 35 w + 6 d 12/15/2024 Previous U/S 04/21/2024 CRL 3.7 mm 35 w + 6 d 12/15/2024 Assigned dating based on the IVF / ET date, selected on 07/28/2024 35 w + 6 d 12/15/2024 General Evaluation Cardiac activity present. FHR 141 bpm. Presentation: cephalic Placenta: Placental site: posterior Amniotic Fluid Assessment === Amount of AF: normal MVP 5.9 cm. ALBARO 16.3 cm. Q1 5.9 cm, Q2 2.2 cm, Q3 5.2 cm, Q4 3.0 cm Biophysical Profile 2: breathing movements 2: Gross body movements 2: tone 2: Amniotic fluid volume NST: reactive 11/26 Biophysical profile score Non Stress Test NST interpretation: reactive. Baseline FHR 130 bpm. Baseline variability: moderate. [...] 80% 62 44% 54.7 50% 2092 74% 11/09/2024 34w 6d 89.2 83% 338.7 96% 315.9 75% 68.9 56% 59.8 65% 2795 75% Anatomy The following structures appear normal: Abdomen Stomach. Kidneys. Bladder. Impression ========= Single, live, intrauterine at 35w 6d. The amniotic fluid volume is normal. The biophysical profile is 10/10. Comment ======== ultrasound alone cannot detect all structural, genetic, or functional , placental, or maternal abnormalities Follow-up ======== Continue weekly testing until delivery. Coding ====== Diagnoses O10.013, I10: Pre-existing essential hypertension complicating , Essential (primary) hypertension O09.513: Supervision of elderly primigravida O09.813: Supervision of resulting from assisted reproductive technology O99.213, E66.811: Obesity complicating , class 1 (BMI 30.0 - 34.9) Procedures 42917: US Uterus Limited 19491: Biophysical Profile W NST Becual PACS Anatomical Region Laterality Modality Other 11/16/2024 8:20 AM CDT Yasmany Frazier MD [facility] ORDERABLES Edited Result - Final * SONOGRAM - COMPLETE (09/24/2024 10:15 AM CDT) Only the most recent of2 [...] 3 lb 0 oz EFW by Hadlock ([id number]) appropriate Growth Overview Exam date [place] BPD [...] of resulting from assisted reproductive technology Procedures 74108: US Preg Uterus Follow Up . [facility] [place] PACS Anatomical Region Laterality Modality Other 09/24/2024 10:1 5 AM CDT Yasmany Frazier MD [facility] ORDERABLES Edited Result - Final from Last 3 Months Insurance [facility] Care Teams Supervisor Publications Relationship Specialty Start Date End Date [facility] [address] [place] [address] PCP - General Family Medicine 02/09/17 Unknown, Provider [address] [place] [address] 02/09/17
--- OUTSIDE RECORDS SUMMARY | 2024-11-20 22:23 | XMS_ITS | Clinical Summary ---
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 Not on file Not on fi le Last Filed Vital Signs Vital Sign Reading Time Taken Comments Blood Pressure 112/82 04/20/2019 8:30 AM POCKET MAKER Pulse 64 04/20/2019 8:30 AM POCKET MAKER Temperature 36.4 C (97.6 F) 04/20/2019 8:30 AM POCKET MAKER Respiratory Rate 18 04/20/2019 8:30 AM POCKET MAKER Oxygen Saturation 100% 04/20/2019 8:30 AM POCKET MAKER Inhaled Oxygen Concentration - - Weight 70.4 kg (155 lb 3.2 oz) 04/20/2019 8:30 A M POCKET MAKER Height 162.6 cm (5' 4) 04/20/2019 8:30 AM POCKET MAKER Body Mass Index 26.64 04/20/2019 8:30 AM POCKET MAKER Plan of Treatment Health Maintenance Due Date [...] Relevant to Health Maintenance Insurance Care Teams International Trade Analyst Relationship Specialty Start Date End Date Red Castro MD [facility] [address] [place] [address] [place] Telesales Agent CARDIOVASCULAR DISEASE 09/30/18
[2024-11-20 22:35] VITALS: BP 141/86; PULSE 79; TEMP 36.8
[2024-11-20 22:46] VITALS: BP 148/87; PULSE 76
[2024-11-20 22:56] LABS: Hematocrit 33.2 % (37.0-47.0); Hemoglobin 10.9 g/dL (12.0-15.0); Immature Granulocyte Percent A 0.7 % (0-0.5); Lymphocytes Absolute Auto 2.51 K/mm3 (0.9-3.2); Mean Corpuscular HGB Conc 32.8 g/dl (32-36); Mean Corpuscular Hemoglobin 27.3 pg (26-34); Mean Corpuscular Volume 83.2 fl (80-100); Nucleated Red Blood Cells Absolute Auto 0.000 K/mm3 (0.0-0.012); Nucleated Red Blood Cells Perc 0.0 % (0.0-0.2); Platelet Count Result 191 k/mm3 (150-375); Red Blood Count 3.99 M/mm3 (4.2-5.4); White Blood Count 10.0 K/mm3 (4.5-10.0)
[2024-11-20 22:57] LABS: Add Urine Microscopic? NO; Appearance Urine Clear (Clear); Glucose Urine UA Negative (Negative); Leukocyte Esterase Ur Negative LEU/UL (Negative); Nitrate Urine Negative (Negative); Specific Grav Ur 1.006 (1.001-1.035)
[2024-11-20 23:01] VITALS: BP 145/83; PULSE 81
[2024-11-20 23:08] LABS: Alanine Aminotransferase 15 U/L (6-35); Albumin Level 3.3 g/dL (3.5-5.1); Alkaline Phosphatase 137 U/L (38-126); Anion Gap 4 mmol/L (4-12); Aspartate Amino Transferase 25 U/L (14-36); Bilirubin,Total 0.2 mg/dL (0.2-1.3); Blood Urea Nitrogen 10 mg/dL (7-17); Calcium 9.1 mg/dL (8.4-10.2); Carbon Dioxide 25 mmol/L (22-30); Chloride 103 mmol/L (98-107); Estimated Glomerular Filt Rate > 60; Glucose 94 mg/dL (65-110); Potassium 3.8 mmol/L (3.4-5.0); Sodium 132 mmol/L (137-145); Total Protein 6.6 g/dL (6.3-8.2); Total Protein Urine Random 15 mg/dL; Ur Ttl Prot Creatinine Ratio 0.61 mg/mg (0-0.20); Uric Acid 3.2 mg/dL (2.5-7.5)
[2024-11-20 23:16] VITALS: BP 149/86; PULSE 81
--- NOTE | 2024-11-20 23:17 | PC.NURSE ---
Call placed to Dr. Pearson, reported pt c/o high BP @ home 165/110, pt denies any headache, changes in vision, r sided pain, slight swelling to feet/hands. Reported labs, vitals, FHR and ctx. Order to d/c pt home undelivered in stable condition with a follow up to OB on friday/friday for NST and BPP, follow up with [facility] this week and continue to take BP 1x daily.
--- NOTE | 2024-11-20 23:31 | PC.NURSE ---
Pt discharged home undelivered in stable condition per order from Dr. Pearson. Discussed plan of care with pt per Dr. Pearson, come Friday to OB for NST and BPP, follow up with Dr. Toribio this week, and continue to take BP 1x daily. Discussed discharge instructions, labor precautions and s/s of pre-e, handouts given. Pt stated understanding, all questions and concerns answered. Pt ambulated out of department with all belongings, S.O @ pt side.
[2024-11-20 23:36] VITALS: BP 141/86; PULSE 79
== END 2024-11-20 23:31 | disposition home or self-care (01) ==
LOC: ANHOBOP 22:21 → ANHLDR 22:22
PROVIDERS: Obstetrics & Gynecology; PCP Family Medicine; Visit Provider Obstetrics & Gynecology
DX: O13.9 Gestational [pregnancy-induced] hypertension without significant proteinuria, unspecified trimester (principal); Z3A.00 Weeks of gestation of pregnancy not specified
CPT/HCPCS: 36415; 59025; 80053; 81003; 82570; 84156; 84550; 85025

== ENCOUNTER 2024-11-24 08:29 | Outpatient (CLI) | payer OTHER, SELFPAY ==
[2024-11-24 09:31] LABS: Total Volume 24 Hour Urine 3500 ml
[2024-11-24 10:41] LABS: Total Protein Urine 24 Hr 350 mg/24hr (28-141); Total Protein Urine Random 10 mg/dL
[2024-11-24 11:51] LABS: Specific Gravity Ur 1.010
== END 2024-11-24 08:30 | disposition home or self-care (01) ==
LOC: ANHLAB 08:29
PROVIDERS: Visit Provider Obstetrics & Gynecology
DX: Z87.59 Personal history of other complications of pregnancy, childbirth and the puerperium (principal)
CPT/HCPCS: 81050; 84156

== ENCOUNTER 2024-11-26 11:33 | Outpatient (RCR) | payer OTHER, SELFPAY ==
[2024-11-22 11:41] VITALS: BP 136/84; PULSE 85
--- NOTE | ~2024-11-26 | US_ITS ---
EXAMINATION: US OB BPP wo non-stress DATE: 11/22/2024 11:48 INDICATION: Gestational hypertension during third trimester . TECHNIQUE: Real-time pelvic ultrasound was performed. The interpreting radiologist was not present for the study. COMPARISON: None. FINDINGS: There is a single living fetus in vertex presentation. The placenta is posterior fundal and not low-lying. heart rate is 127 beats per minute (bpm). Normal amniotic fluid index of 11.2 cm (5th%-95%: 7.7-24.9 cm at 36 weeks estimated gestational age). Biophysical profile performed by the technologist: breathing (30 sec sustained breathing in 30 minutes): 2 out of 2 movement (3 gross body movements in 30 minutes): 2 out of 2 tone (one episode of soyilvh-vdqrnpojz-qespakc limb movement): 2 out of 2 Amniotic fluid pocket (2 cm): 2 out of 2 Total score: 8 out of 8 IMPRESSION: 1. Single living fetus in vertex presentation with heart rate of 127 bpm. 2. Biophysical profile 8 out of 8. 3. Normal amniotic fluid index of 11.2 cm. Reviewed, dictated and finalized at location A.
--- NOTE | ~2024-11-26 | US_ITS ---
EXAMINATION: US OB limited DATE: 11/26/2024 12:31 INDICATION: Advanced maternal age with chronic hypertension during third trimester of an IVF . TECHNIQUE: Real-time ultrasound of the pelvis was performed. The interpreting radiologist was not present for the study. COMPARISON: None. FINDINGS: There is a single living fetus in vertex presentation. The placenta is posterior fundal. heart rate is 128 beats per minute (bpm). The amniotic fluid index is 17.0 cm, which is normal (5th%-95%: 7.5-24.4 cm at 37 weeks estimated gestational age). IMPRESSION: 1. Single living fetus in vertex presentation with heart rate of 128 bpm. 2. Normal amniotic fluid index of 17.0 cm. Reviewed, dictated and finalized at location A. IMPRESSION: 1. Single living fetus in vertex presentation with heart rate of 128 bpm . 2. Normal amniotic fluid index of 17.0 cm.
[2024-11-26 12:39] VITALS: BP 133/83; PULSE 80
== END 2024-11-30 12:52 | disposition home or self-care (01) ==
LOC: ANHOBOP 11:33
PROVIDERS: PCP Family Medicine; Visit Provider Obstetrics & Gynecology
DX: O13.3 Gestational [pregnancy-induced] hypertension without significant proteinuria, third trimester (principal); Z3A.36 36 weeks gestation of pregnancy; Z3A.37 37 weeks gestation of pregnancy
CPT/HCPCS: 59025; 76815; 76819

== ENCOUNTER 2024-11-29 17:02 | Inpatient (IN) | payer OTHER, SELFPAY ==
[2024-11-29] VITALS (25 sets, daily range): BP systolic 123–158; BP diastolic 64–103; PULSE 72–96; BMI 34.7
--- OUTSIDE RECORDS SUMMARY | 2024-11-29 17:06 | XMS_ITS | Encounter Summary ---
Author Organization [facility] Address [address] [place] [address] Care Team Providers Care Director Institution Name Role Phone Bryant Saleh MD Primary Care Provider [phone] Garry Balbuena MD Primary Care Provider [phone] Red Castro MD Unavailable [phone] Encounter Details Date Type Department Care Team (Late st Contact Info) Description 11/07/2017 Abstract [facility] Family Medicine - [place] [address], [address] [place] [id number] Garry Balbuena MD [address] [place], [place] [id number] Social History Tobacco Use Types Packs/Day Years [...] on filedocumented in this encounter Care Teams Director Institution Relationship Specialty Start Date End Date Bryant Saleh MD [address] '[place], [place] [id number] PCP - General 02/22/16 01/13/18 Garry Balbuena MD [address] [facility] [place] [address] PCP - General FAMILY PRACTICE 01/14/18 07/26/24 Red Castro MD [facility]. [address] [place] [address] Gabby Hydrometallurgical Engineer CARDIOVASCULAR DISEASE 09/30/18 documented as of this encounter
--- OUTSIDE RECORDS SUMMARY | 2024-11-29 17:06 | XMS_ITS | Encounter Summary ---
Author Organization [facility] Healthcare Address [address] [place] [address] Care Team Providers Care Marine Steam Fitter Helper Name Role Phone Donnie Anne MD Primary Care Provider [phone] Yasmany Toribio MD Unavailable [phone] Reason for Referral * Diagnostic Imaging (Routine) - Closed Specialty Diagnoses / Procedures Referred By Contac t Referred To Contact Procedures US Ob 14 Weeks Or Over Tobi Liao MD [address] [place] [address] Phone: tel: [facility] Medical [facility] Referral ID Status Reason Start Date Expiration Date Visits Re quested Visits Authorized [id number] Closed 11/29/2024 12/29/2025 1 1 Encounter Details Date Type Department Care Team (Late st Contact Info) Description 11/29/2024 Orders Only [facility] Medical [facility] Primary Care at [address] [address] Tobi Liao MD [address] [place] [address] Social History Tobacco Use Types Packs/Day Years Used Date Smoking Tobacco: Never Smokeless Tobacco: Never AUDIT-C Answer Date Recorded Q1: How often [...] file Not on file Not on file documented as of this encounter Plan of Treatment Not on file documented as of this encounter Procedures Procedure Name Priority Date/Time Associated Diagnosis Comments US OB 14 WEEKS OR OVER Schedule Routine, Read Routine (OP Routine) 11/26/2024 9:21 AM CDT documented in this encounter Results * US Ob 14 Weeks Or Over (11/26/2024 9:21 AM CDT) Anatomical Region Laterality Modality Abdomen N/A Ultrasound us Historical Provider IMRussell OB US PROCEDURES Amarilis l Result documented in this encounter Visit Diagnoses Not on filedocumented in this encounter Care Teams Marine Steam Fitter Helper Relationship Specialty Start Date End Date Donnie Anne MD [address] [place] [address] PCP - General Family Medicine 10/10/21 Yasmany Toribio MD [address] [place] [address] Referring Physician Obstetrics and Gynecology 10/10/21 documented as of this encounter
--- OUTSIDE RECORDS SUMMARY | 2024-11-29 17:06 | XMS_ITS | Clinical Summary ---
Author Organization [facility] [address] Address [address] [place] [address] Care Team Providers Care Photonic Laboratory Technician Name Role Phone Donnie Anne MD Primary Care Provider [phone] Yasmany Toribio MD Unavailable [phone] Allergies No known active allergies Medications Pregnyl [...] Encounters Date Type Department Care Team Description 11/29/2024 Orders Only [facility] Medical Group Primary Care at [address] [address] Tobi Liao MD 11/24/2024 Orders Only [facility] Medical [facility] Primary Care at [address] [address] Tobi Liao MD 11/17/2024 Telephone [facility] Medical [facility] Primary Care at [address] [address] Donnie Anne MD auto confirm cancel appt 09/28/2024 Orders Only [facility] Medical Group Primary Care at [address] [address] Tobi Liao MD from Last 3 Months Immunizations Immunization Administration [...] Routine (OP Routine) 11/26/2024 9:21 AM CDT US OB 14 WEEKS OR OVER Schedule Routine, Read Routine (OP Routine) 11/22/2024 2:05 PM CDT CBC - COMPLETE BLOOD COUNT - [facility] Routine 09/28/2024 9:37 AM CDT GLUCOSE Routine 09/28/2024 9:37 AM CDT HEP B SURF AG W/CONF Routine 09/28/2024 9:37 AM CDT HEPATITIS C ANTIBODY Routine 10/13/2023 2:30 PM CDT Need for hepatitis C screening test PAP SMEAR WITH HPV Routine 04/13/2020 from Last 3 Months or Most Recently Relevant to Health Maintenance Results * US Ob 14 Weeks Or Over (11/26/2024 9:21 AM CDT) Anatomical Region Laterality Modality Abdomen N/A Ultrasound [facility] Provider IMRussell OB US PROCEDURES Amarilis l Result * US Ob 14 Weeks Or Over (11/22/2024 2:05 PM CDT) Anatomical Region Laterality Modality Abdomen N/A Ultrasound Result [facility] Provider IMG OB US PROCEDURES Amarilis l Result * Glucose (09/28/2024 9:37 AM CDT) Result [facility] LAB BLOOD ORDERABLES Amarilis l Result * CBC - Complete Blood Count - [facility] (09/28/2024 9:37 AM CDT) Result [facility] Provider LAB BLOOD ORDERABLES Amarilis l Result * HEP B SURF AG W/CONF (09/28/2024 9:37 AM CDT) Result [facility] LAB MICROBIOLOGY - GENERA L ORDERABLES Final [...] Final Result Performing Organization Address City/[place] [address] [place] [address] * HM PAP SMEAR WITH HPV (04/13/2020) Scribed Pap Smear w/HPV Normal Narrative Radha Guerrero MA - 04/13/2020 In care everywhere Historical Provider HEALTH MAINTENANCE Final Result from Last 3 Months or Most Recently Relevant to Health Maintenance Insurance [employer] Care Teams Photonic Laboratory Technician Relationship Specialty Start Date End Date Donnie Anne MD [address] [place] [address] PCP - General Family Medicine 10/10/21 Yasmany Toribio MD [address] [address] Referring Physician Obstetrics and Gynecology 10/10/21
--- OUTSIDE RECORDS SUMMARY | 2024-11-29 17:06 | XMS_ITS | Encounter Summary ---
Author Organization [facility] Healthcare Address [address] [place] [address] Care Team Providers Care Spindle Plumber Name Role Phone Donnie Anne MD Primary Care Provider [phone] Yasmany Toribio MD Unavailable [phone] Reason for Referral * Diagnostic Imaging (Routine) - Closed Specialty Diagnoses / Procedures Referred By Contac t Referred To Contact Procedures US Ob 14 Weeks Or Over Tobi Liao MD [address] [place] [address] Phone: tel: [facility] Medical [facility] Referral ID Status Reason Start Date Expiration Date Visits Re quested Visits Authorized [id number] Closed 11/24/2024 12/24/2025 1 1 Encounter Details Date Type Department Care Team (Late st Contact Info) Description 11/24/2024 Orders Only [facility] Medical [facility] Primary Care at [address] [phone] Tobi Liao MD [address] [place] [address] Social History Tobacco Use Types [...] Routine (OP Routine) 11/22/2024 2:05 PM CDT documented in this encounter Results * US Ob 14 Weeks Or Over (11/22/2024 2:05 PM CDT) Anatomical Region Laterality Modality Abdomen N/A Ultrasound us Historical Provider IMRussell OB US PROCEDURES Amarilis l Result documented in this encounter Visit Diagnoses Not on filedocumented in this encounter Care Teams Spindle Plumber Relationship Specialty Start Date End Date Donnie Anne MD [address] [place] [address] PCP - General Family Medicine 10/10/21 Yasmany Toribio MD [address] [place] [address] Referring Physician Obstetrics and Gynecology 10/10/21 documented as of this encounter
--- OUTSIDE RECORDS SUMMARY | 2024-11-29 17:06 | XMS_ITS | Clinical Summary ---
Author Organization [facility] Address [address] [place] [address] Care Team Providers Care Frame Feeder Name Role Phone [facility], [address] [place] [address] Primary Care Prov ider Unknown, Provider Unavailable Unavailable Source Comments [facility],non-owned Affiliates and Associated Physician Practices is amultiple site organization consisting of ambulatory clinics and hospital sitesin [place], [place], [place] and [place]. This disclosure is being madepursuant to the Care Everywhere program and may not contain all information available regarding this patient. Last updated 17.[facility] Allergies No known active allergies Medications * [...] Encounters Date Type Department Care Team Description 11/23/2024 8:15 AM CDT - 11/23/2024 11:59 PM CDT Hospital Encounter [facility] [address] [place] [address] Julio Noel MD Discharge Disposition: Home or Self Care 11/16/2024 8:15 AM CDT - 11/16/2024 11:59 PM CDT Hospital Encounter [facility] [address] [place] [phone] Merari Guillory MD WIG COMBER Discharge Disposition: Home or Self Care 11/09/2024 8:13 AM CDT - 11/09/2024 11:59 PM CDT Hospital Encounter [facility] [address] [place] [phone] Julio Noel MD Discharge Disposition: Home or Self Care 11/02/2024 8:13 AM CDT - 11/02/2024 11:59 PM CDT Hospital Encounter [facility] [address] [place] [phone] Julio Noel MD Discharge Disposition: Home or Self Care 10/26/2024 8:15 AM CDT - 10/26/2024 11:59 PM CDT Hospital Encounter [facility] [address] [place] [phone] Jaime Clark DO WIG COMBER Discharge Disposition: Home or Self Care 10/19/2024 8:15 AM CDT - 10/19/2024 11:59 PM CDT Hospital Encounter [facility] [address] [place] [phone] Gonzalo Hedrick MD Discharge Disposition: Home or Self Care 09/24/2024 9:39 AM CDT - 09/24/2024 11:59 PM CDT Hospital Encounter [facility] [address] [place] [phone] Julio Noel MD Discharge Disposition: Home or Self Care 08/31/2024 Orders Only [facility] [address] [place] [phone] Noris Ferrer RN from Last 3 Months Family History Relation [...] on file 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 Gender Identity Not on file Sexual Orientation Not on file Last Filed Vital Signs Vital Sign Reading Time Taken Comments Blood Pressure 138/79 11/23/2024 9:11 AM CDT Pulse 81 11/23/2024 9:11 AM CDT Temperature 36.7 C (98 F) 06/05/2020 3:02 PM CDT Respiratory Rate 20 06/05/2020 3:02 PM CDT Oxygen Saturation 99% 02/09/2017 3:06 PM SQL SERVER DEVELOPER Inhaled Oxygen Concentration - - Weight 81.2 kg (179 lb) 07/28/2024 10:54 AM CDT Height 160 cm (5' 3) 07/28/2024 9:54 AM CDT Body Mass Index 31.71 07/28/2024 9:54 AM CDT Plan of Treatment Upcoming Encounters Date Type Department Care Team (Late st Contact Info) Description 12/07/2024 8:15 AM CDT Appointment [facility] [address] [place] [phone] 12/14/2024 8:15 AM CDT Appointment [facility] [address] [place] [phone] Health Maintenance Due Date Last Done Comments HIV SCREENING 2000 DTAP/TDAP/TD VACCINES (1 - Tdap) 2004 HEPATITIS B VACCINE (1 of 3 - 19+ 3-dose series) 2004 PAP SMEAR 2006 HPV VACCINE (1 - 3-dose SCDM series) 2012 DEPRESSION SCREENING 02/18/2024 OB-ONE HOUR GLUCOSE 09/08/2024 OB-TDAP CURRENT 09/15/20242015, 11/04/2011 OB-RHOGAM INJECTION 09/22/2024 COVID-19 VACCINE (2024-2 6 season) 2024 09/18/2020, 08/27/2020 INFLUENZA VACCINE (#1) 2024 11/18/2019 OB-GROUP B STREP SCREEN 11/10/2024 ZOSTER VACCINE [...] on patient's age to complete this topic Respiratory Syncytial Virus (RSV) Vaccine Pt: or over 60 yrs (No Doses Required) Completed Procedures Procedure Name Priority Date/Time Associated Diagnosis Comments BIOPHYSICAL PROFILE W T Routine 11/23/2024 8:20 AM CDT Primigravida of advanced maternal age in third trimester (HCC) Chronic hypertension complicating or reason for care during , third trimester ([facility]) Encounter for other screening follow-up ([facility]) 35 weeks gestation of (HCC) resulting from in vitro fertilization in third trimester ([facility]) BIOPHYSICAL PROFILE W T Routine 11/16/2024 8:20 AM CDT Primigravida of advanced maternal age in third trimester (HCC) Chronic hypertension complicating or reason for care during , third trimester (HCC) Encounter for other screening follow-up ([facility]) 35 weeks gestation of (HCC) resulting from in vitro fertilization in third trimester (HCC) BIOPHYSICAL PROFILE W T Routine 11/09/2024 8:15 AM CDT Primigravida of advanced maternal age in third trimester (HCC) Chronic hypertension complicating or reason for care during , third trimester (HCC) Encounter for ultrasound to assess growth (HCC) 32 weeks gestation of ([facility]) Encounter for other screening follow-up ([facility]) BIOPHYSICAL PROFILE W NST Routine 11/02/2024 8:14 [...] of (HCC) Encounter for other screening follow-up ([facility]) BIOPHYSICAL PROFILE W NST Routine 10/19/2024 8:21 AM CDT Primigravida of advanced maternal age in third trimester (HCC) Chronic hypertension complicating or reason for care during , third trimester (HCC) Encounter for ultrasound to assess growth (HCC) 32 weeks gestation of (HCC) Encounter for other screening follow-up ([facility]) SONOGRAM - COMPLETE Routine 09/24/2024 1 0:15 AM CDT Encounter for anatomic survey (HCC) resulting from in vitro fertilization in second trimester (HCC) 20 weeks gestation of (HCC) from Last 3 Months Results * Biophysical Profile w NST (11/23/2024 8:20 AM CDT) Only the most recent of6 resultswithin the time period is included. Linked [...] 5 kg, 10 lb Method ====== Transabdominal ultrasound examination. View: Sufficient ========= Ojeda . Number of fetuses: 1 Dating ====== Date Details Gest. age MARIN LMP 03/08/2024 37 w + 1 d 12/13/2024 Conception Conception: IVF Embryo transfer 03/29/2024 IVF / ET: 5 d 36 w + 6 d 12/15/2024 Stated MARIN 36 w + 6 d 12/15/2024 Previous U/S 04/21/2024 CRL 3.7 mm 36 w + 6 d 12/15/2024 Assigned dating based on the IVF / ET date, selected on 07/28/2024 36 w + 6 d 12/15/2024 General Evaluation Cardiac activity present. FHR 137 bpm. Presentation: cephalic Placenta: Placental site: posterior Amniotic Fluid Assessment ==== Amount of AF: normal MVP 5.6 cm. ALBARO 13.6 cm. Q1 1.8 cm, Q2 3.4 cm, Q3 2.8 cm, Q4 5.6 cm Biophysical Profile 2: breathing movements 2: Gross body movements 2: tone 2: Amniotic fluid volume NST: reactive 11/26 Biophysical profile score Non Stress Test NST interpretation: reactive. Baseline FHR 125 bpm. Baseline variability: moderate. Accelerations: present Growth Overview Exam date GA BPD (mm) [...] Bladder. Impression ========= Single, live, intrauterine at 36w 6d The amniotic fluid volume is normal. The biophysical profile is 11/26. Comment ======== U/S cannot detect all structural, genetic, or functional , placental, or maternal abnormalities Follow-up ======== Continue weekly testing Coding ====== Diagnoses O10.013, I10: Pre-existing essential hypertension complicating , Essential (primary) hypertension O09.513: Supervision of elderly primigravida O09.813: Supervision of resulting from assisted reproductive technology O99.213, E66.811: Obesity complicating , class 1 (BMI 30.0 - 34.9) Procedures 93053: Biophysical Profile W NST [facility] Well Done PACS Anatomical Region Laterality Modality Other 11/23/2024 8:20 AM CDT Yasmany Frazier MD [facility] ORDERABLES Edited Result - Final * SONOGRAM - COMPLETE (09/24/2024 10:15 AM CDT) Linked Results Indication ======== Supervision [...] 3 lb 0 oz EFW by Hadlock ([id number]) appropriate Growth Overview Exam date GA BPD [...] of resulting from assisted reproductive technology Procedures 87069: US Preg Uterus Follow Up Management PACS Anatomical Region Laterality Modality Other 09/24/2024 10:1 5 AM CDT Yasmany Frazier MD [facility] ORDERABLES Edited Result - Final from Last 3 Months Insurance [facility] Care Teams Frame Feeder Relationship Specialty Start Date End Date [address] [facility] [address] [place] [address] PCP - General Family Medicine 02/09/17 Unknown, Provider [address] [place] [address] 02/09/17
--- OUTSIDE RECORDS SUMMARY | 2024-11-29 17:06 | XMS_ITS | Clinical Summary ---
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 Pulse 64 04/20/2019 8:30 AM LATEX FOAM WORKER Temperature 36.4 C (97.6 F) 04/20/2019 8:30 AM LATEX FOAM WORKER Respiratory Rate 18 04/20/2019 8:30 AM LATEX FOAM WORKER Oxygen Saturation 100% 04/20/2019 8:30 AM LATEX FOAM WORKER Inhaled Oxygen Concentration - - Weight 70.4 kg (155 lb 3.2 oz) 04/20/2019 8:30 A M LATEX FOAM WORKER Height 162.6 cm (5' 4) 04/20/2019 8:30 AM LATEX FOAM WORKER Body Mass Index 26.64 04/20/2019 8:30 AM LATEX FOAM WORKER Plan of Treatment Health Maintenance Due Date Last Done Comments Cervical Cancer Screening Pa p Smear (Age 30 to 64) Every 3 Years 1985 Hepatitis C 2003 Hepatitis B Vaccines (1 of 3 - 19+ 3-dose series) 2004 HPV Vaccines (1 - 3-dose SCD M series) 2012 Annual Physical 04/19/2020 04/20/2019 COVID-19 Vaccine ( - 2023-2 5 season) 2024 Influenza Adult (#1) 2024 Cervical Cancer Screening Pa p with [...] Relevant to Health Maintenance Insurance Care Teams Jewel Bearing Grinder Relationship Specialty Start Date End Date Red Castro MD [facility] [address] [place] [address] [place] Chick Grader CARDIOVASCULAR DISEASE 09/30/18
[2024-11-29 17:44] LABS: Hematocrit 32.4 % (37.0-47.0); Hemoglobin 10.8 g/dL (12.0-15.0); Immature Granulocyte Percent A 0.7 % (0-0.5); Lymphocytes Absolute Auto 1.94 K/mm3 (0.9-3.2); Mean Corpuscular HGB Conc 33.3 g/dl (32-36); Mean Corpuscular Hemoglobin 27.8 pg (26-34); Mean Corpuscular Volume 83.3 fl (80-100); Nucleated Red Blood Cells Absolute Auto 0.000 K/mm3 (0.0-0.012); Nucleated Red Blood Cells Perc 0.0 % (0.0-0.2); Platelet Count Result 186 k/mm3 (150-375); Red Blood Count 3.89 M/mm3 (4.2-5.4); White Blood Count 10.8 K/mm3 (4.5-10.0)
--- NOTE | 2024-11-29 17:44 | LDADM ---
This patient, Romina Cassidy, was admitted to Labor/Delivery/Recovery 102 on 11/29/24 at 17:02. Plans for labor, pain management and were discussed with patient. Patient/family oriented to hospital policies and general routines including ID bracelet, bed and alarms, visiting hours, pain management, procedures, bathroom and other care routines, personal items, smoking policy, room service/diet and guest tray routines, infant security routines, and visiting hours. Patient/Family are encouraged to report perceived risks to care and to ask questions if they do not understand what they are told or what they should do. See OBIX for further documentation.
[2024-11-29 17:56] LABS: Alanine Aminotransferase 29 U/L (6-35); Albumin Level 3.2 g/dL (3.5-5.1); Alkaline Phosphatase 136 U/L (38-126); Anion Gap 8 mmol/L (4-12); Aspartate Amino Transferase 50 U/L (14-36); Bilirubin,Total 0.1 mg/dL (0.2-1.3); Blood Urea Nitrogen 14 mg/dL (7-17); Calcium 8.8 mg/dL (8.4-10.2); Carbon Dioxide 20 mmol/L (22-30); Chloride 105 mmol/L (98-107); Estimated CRCL calculation 112 ml/min; Estimated Glomerular Filt Rate > 60; Glucose 100 mg/dL (65-110); Potassium 3.8 mmol/L (3.4-5.0); Sodium 133 mmol/L (137-145); Total Protein 6.5 g/dL (6.3-8.2); Uric Acid 4.0 mg/dL (2.5-7.5)
[2024-11-29 18:23] LABS: Syphilis IgG/IgM Antibody Non-Reactive (Nonreactive)
[2024-11-29] MEDS: LABETALOL HCL 100 MG TABLET PO ×2 (18:56→20:14)
[2024-11-30] VITALS (98 sets, daily range): BP systolic 105–157; BP diastolic 58–99; PULSE 71–107; TEMP 36.3–36.9
[2024-11-30] MEDS: LABETALOL HCL 100 MG TABLET 400 MG PO ×3 (02:19→18:27)
[2024-11-30] MEDS: OXYTOCIN 30 UNITS/NS 500 ML 30 UNITS/500 ML BAG 6 UNITS IV CONT (06:57)
[2024-11-30] MEDS: LACTATED RINGERS 1,000 ML 125 ML IV CONT (06:57)
[2024-11-30] MEDS: DINOPROSTONE 10 MG VAG INSERT VAGINAL (19:27)
--- NOTE | 2024-11-30 20:22 | WPDANESEPP ---
Anes - Eval Pre Procedure Procedure: LABOR PAIN MANAGEMENT Date/Time: 11/30/24 20:22 Surgeon: KIA Preop Diagnosis: PAIN DURING LABOR Pre Op Diagnosis: iol Patient Data Age: 39 Gender: F Height: 1.6 m Weight: 89 kg Last Vital Signs Temp 97.9 F 11/30/24 17:09 Pulse 86 11/30/24 20:15 BP 129/81 11/30/24 20:15 O2 Del Method Room Air 11/29/24 17:44 Allergies Allergy/AdvReac Type Severity Reaction Status Date / Time No Known Allergies Allergy Verified 11/29/24 17:50 Home Medications ?Medication ?Instructions ?Recorded ?Confirmed ?Type prenat.vits,apurva,rky-lehm-vgvue 1 tablet PO DAILY 05/24/24 11/29/24 History aspirin 81 mg tablet,delayed 162 mg PO DAILY 06/29/24 11/29/24 History release labetalol 100 mg tablet 100 mg PO Q12H #60 tabs 11/23/24 11/29/24 Rx Patient hx anesthesia problems: none Family hx anesthesia problems: none Results Review: All pre-operative results and documents have been reviewed as part of the pre-operative evaluation. [facility] Past Medical History Medical History Hypertension Surgical History Surgical History S/P carpal tunnel release Family History Family History Grandparent Diabetes mellitus Hypertension Grandparent Heart disease Other Family history of elevated blood lipids Social History Social History Smoking status: Never smoker Second hand tobacco smoke exposure: No Alcohol intake: current Substance use: never Substance use type: does not use Lack of Transportation: No Lack of Food: Never True Current Housing: I Have Housing Concerned About Future Housing: No Difficulty Paying Gas/Electric Bills: No Difficulty Paying for Meds: No Currently Unemployed: No Education: Trade/Vocational Certificate Difficulty w/ Childcare or Family Care: No Spiritual care concerns: No Exam Day of Procedure 11/30/24 20:22
[2024-11-30] MEDS: FAMOTIDINE 20 MG/2 ML VIAL IV PUSH (20:25)
[2024-12-01] VITALS (95 sets, daily range): BP systolic 107–156; BP diastolic 59–106; PULSE 65–110; TEMP 36.2–36.8
[2024-12-01] MEDS: fentaNYL CITRATE INJ (*CRX) 100 MCG/2 ML VIAL IV PUSH ×2 (08:25→15:48)
--- NOTE | 2024-12-01 10:15 | P.HP_ITS ---
H&P: HPI History of Present Illness Date/Time: 11/29/24 10:15 Chief Complaint: Medical induction of labor Narrative: Patient is a 39 y/o G1 at 37 weeks admitted for [facility] for pre-eclampsia without severe features. PNC significant for h/o CHTN diagnosed during this prior to . She was not on medication until recently. She has had increasing blood pressures 140/90s. Recent 24 hour urine showed proteinuria. She denied severe headache, scotomata or RUQ pain. She was recommended for induction of labor. She was informed of risk benefits of induction of labor. She agreed to induction of labor. Review of Systems Review of Systems: All systems reviewed & are unremarkable except as noted in HPI and below Constitutional: Constitutional: Reports no additional constitutional complaints and Denies headache(s) Eyes: Eyes: Denies spots in vision ENT: Reports system reviewed and no additional complaints, except as documented and Denies headache(s) Cardiovascular: Cardiovascular: Denies chest pain and Denies dyspnea Respiratory: Respiratory: Denies dyspnea Gastrointestinal: Gastrointestinal: Reports no additional gastrointestinal complaints Genitourinary: Genitourinary: Reports amenorrhea Musculoskeletal: Musculoskeletal: Reports no additional musculoskeletal complaints Integumentary/Breasts: Skin/Breast: Denies breast mass and Denies rash Neurologic: Denies headache(s) Psychiatric: Psychiatric: Reports no additional psychiatric complaints [facility] Past Medical History Medical History Hypertension Surgical History Surgical History S/P carpal tunnel release Family History Family History Grandparent Diabetes mellitus Hypertension Grandparent Heart disease Other Family history of elevated blood lipids Social History Social History Smoking status: Never smoker Second hand tobacco smoke exposure: No Alcohol intake: current Substance use: never Substance use type: does not use Lack of Transportation: No Lack of Food: Never True Current Housing: I Have Housing Concerned About Future Housing: No Difficulty Paying Gas/Electric Bills: No Difficulty Paying for Meds: No Currently Unemployed: No Education: Trade/Vocational Certificate Difficulty w/ Childcare or Family Care: No Spiritual care concerns: No Meds Home Medications and Allergies Home Medications ?Medication ?Instructions ?Recorded ?Confirmed ?Type prenat.vits,apurva,qpo-cxum-wzqmg 1 tablet PO DAILY 05/2411/29/24 History labetalol 100 mg tablet 100 mg PO Q12H #60 tabs 09/1011/29/24 Rx ibuprofen 600 mg tablet 600 mg PO Q6HR #30 tabs 11/17 10/11 Rx oxycodone 5 mg tablet 5 mg PO Q4H PRN Pain Rated 4 -6 #30 12/04/24 Rx tabs Allergies Allergy/AdvReac Type Severity Reaction Status Date / Time No Known Allergies Allergy Verified 11/29/24 17:50 Vital Signs Vital Signs - 24 hr 11/30/24 10:30 11/30/24 10:35 11/30/24 10:44 Temperature 98 F Pulse Rate 102 H 103 H Blood Pressure 134/87 Oxygen Delivery 11/30/24 10:45 11/30/24 11:00 11/30/24 11:15 Temperature Pulse Rate 106 H 90 92 Blood Pressure 139/91 H 138/82 137/81 Oxygen Delivery 11/30/24 11:30 11/30/24 11:45 11/30/24 12:00 Temperature Pulse Rate 87 94 93 Blood Pressure 136/76 139/85 131/81 Oxygen Delivery 11/30/24 12:15 11/30/24 12:30 11/30/24 12:45 Temperature 97.7 F Pulse Rate 89 96 81 Blood Pressure 125/79 121/83 139/80 Oxygen Delivery 11/30/24 13:00 11/30/24 13:16 11/30/24 13:31 Temperature Pulse Rate 86 79 79 Blood Pressure 136/85 133/75 129/83 Oxygen Delivery 11/30/24 13:46 11/30/24 14:01 11/30/24 14:16 Temperature Pulse Rate 97 77 73 Blood Pressure 122/95 H 130/78 124/77 Oxygen Delivery 11/30/24 14:30 11/30/24 14:31 11/30/24 14:45 Temperature 97.3 F L Pulse Rate 78 77 Blood Pressure 120/74 133/81 Oxygen Delivery 11/30/24 15:01 11/30/24 16:12 11/30/24 16:15 Temperature Pulse Rate 75 83 85 Blood Pressure 131/74 125/81 130/83 Oxygen Delivery 11/30/24 16:31 11/30/24 16:45 11/30/24 17:00 Temperature Pulse Rate 83 88 80 Blood Pressure 134/78 128/76 133/75 Oxygen Delivery 11/30/24 17:09 11/30/24 17:16 11/30/24 17:31 Temperature 97.9 F Pulse Rate 84 81 Blood Pressure 133/85 136/89 Oxygen Delivery 11/30/24 17:46 11/30/24 18:01 11/30/24 18:16 Temperature Pulse Rate 82 92 86 Blood Pressure 141/84 H 148/91 H 137/88 Oxygen Delivery 11/30/24 18:27 11/30/24 18:31 11/30/24 18:46 Temperature Pulse Rate 86 95 107 H Blood Pressure 146/72 H 123/97 H Oxygen Delivery 11/30/24 19:00 11/30/24 19:16 11/30/24 19:31 Temperature Pulse Rate 91 83 84 Blood Pressure 138/88 133/81 137/83 Oxygen Delivery 11/30/24 19:46 11/30/24 20:01 11/30/24 20:15 Temperature Pulse Rate 81 89 86 Blood Pressure 118/65 115/68 129/81 Oxygen Delivery 11/30/24 20:46 11/30/24 21:01 11/30/24 21:15 Temperature Pulse Rate 88 80 83 Blood Pressure 128/74 112/60 127/81 Oxygen Delivery 11/30/24 21:30 11/30/24 21:46 11/30/24 22:00 Temperature Pulse Rate 86 88 89 Blood Pressure 133/79 129/84 128/84 Oxygen Delivery 11/30/24 22:16 11/30/24 22:31 11/30/24 22:46 Temperature Pulse Rate 81 92 90 Blood Pressure 132/78 129/74 133/72 Oxygen Delivery 11/30/24 23:01 11/30/24 23:16 11/30/24 23:31 Temperature Pulse Rate 90 83 78 Blood Pressure 138/76 127/58 L 114/61 Oxygen Delivery 11/30/24 23:46 12/01/24 00:01 12/01/24 00:15 Temperature Pulse Rate 81 79 79 Blood Pressure 105/63 113/62 138/87 Oxygen Delivery 12/01/24 00:31 12/01/24 00:46 12/01/24 01:01 Temperature Pulse Rate 86 79 93 Blood Pressure 137/73 134/77 133/79 Oxygen Delivery 12/01/24 01:16 12/01/24 01:31 12/01/24 01:46 Temperature Pulse Rate 78 78 75 Blood Pressure 124/72 125/72 107/59 L Oxygen Delivery 12/01/24 02:01 12/01/24 02:15 12/01/24 02:31 Temperature Pulse Rate 78 103 H 85 Blood Pressure 109/64 126/76 114/70 Oxygen Delivery 12/01/24 02:46 12/01/24 03:01 12/01/24 03:16 Temperature Pulse Rate 77 75 74 Blood Pressure 125/69 116/65 136/82 Oxygen Delivery 12/01/24 03:30 12/01/24 03:46 12/01/24 04:00 Temperature Pulse Rate 76 73 75 Blood Pressure 124/77 128/76 124/83 Oxygen Delivery 12/01/24 04:15 12/01/24 04:30 12/01/24 04:46 Temperature Pulse Rate 75 86 74 Blood Pressure 121/75 137/85 119/82 Oxygen Delivery 12/01/24 04:55 12/01/24 05:00 12/01/24 05:15 Temperature 98.2 F Pulse Rate 78 92 Blood Pressure 134/82 139/77 Oxygen Delivery 12/01/24 06:00 12/01/24 06:15 12/01/24 06:30 Temperature 98.2 F Pulse Rate 103 H 90 87 Blood Pressure 119/85 121/84 128/88 Oxygen Delivery 12/01/24 06:45 12/01/24 07:00 12/01/24 07:00 Temperature Pulse Rate 95 87 Blood Pressure 131/89 132/90 Oxygen Delivery Room Air 12/01/24 07:16 12/01/24 07:31 12/01/24 07:46 Temperature Pulse Rate 87 98 77 Blood Pressure 137/84 145/104 H 135/78 Oxygen Delivery 12/01/24 08:01 12/01/24 08:46 12/01/24 09:01 Temperature Pulse Rate 78 74 70 Blood Pressure 124/70 120/69 114/68 Oxygen Delivery 12/01/24 09:16 12/01/24 09:31 12/01/24 09:48 Temperature Pulse Rate 69 75 78 Blood Pressure 113/63 113/65 123/76 Oxygen Delivery 12/01/24 10:01 Temperature Pulse Rate 86 Blood Pressure 133/78 Oxygen Delivery Exam Const: General: no acute distress Eyes: General: appearance normal, both eyes and all related structures Resp: Effort & Inspection: normal respiratory effort Cardio: Rate: regular rate GI: Other: Gravid no fundal tenderness no right upper quadrant pain Skin: General skin exam: no rashes or lesions noted Neuro: Cognition (Neuro): normal cognition Extrem: General: normal to inspection Psych: Mental Status: mental status grossly normal Assessment and Plan Assessment and plan (1) Pre-eclampsia added to pre-existing hypertension: Code(s): O11.9 - Pre-existing hypertension with pre-eclampsia, unspecified trimester Status: Acute Assessment and Plan: Without severe features. Cervidil then Pitocin.
--- NOTE | 2024-12-01 10:15 | PM.OBPNVD ---
OB - PN: Subj Subjective Date/time seen: 12/01/24 0800 Interval history: Speculum exam, cervix deviated to left and posterior, unable to grasp for cath insertion. Pt did receive IV analgesia, she did tolerate digital exam and cervix was post, 1.5-2, 60,-2. OB - PN: Obj Data Labs 12/03/24 05:15 11/29/24 17:38 OB - PN A/P Time Spent With Patient Time: Total time spent is greater than 50% in coordination of care (as documented) at patient's floor/unit and/or counseling patient:
[2024-12-01] MEDS: LABETALOL HCL 100 MG TABLET 400 MG PO ×2 (10:53→19:08)
[2024-12-01] MEDS: LACTATED RINGERS 1,000 ML 125 ML IV CONT (15:24)
[2024-12-01] MEDS: CALCIUM CARBONATE (TUMS) 500 MG (200 MG ELEMENTAL) 400 MG PO (15:34)
--- NOTE | 2024-12-01 16:26 | PM.OBPNVD ---
OB - PN: Subj Subjective Date/time seen: 12/01/24 16:26 Interval history: 1600 - 1.5/60/-3 OB - PN: Obj Data Labs 12/03/24 05:15 11/29/24 17:38 OB - PN A/P Time Spent With Patient Time: Total time spent is greater than 50% in coordination of care (as documented) at patient's floor/unit and/or counseling patient:
[2024-12-01] MEDS: ZOLPIDEM TARTRATE (*CRX) 5 MG TABLET 10 MG PO (19:15)
[2024-12-02] VITALS (77 sets, daily range): BP systolic 105–148; BP diastolic 51–95; PULSE 58–91; RESP 14–21; TEMP 36.2–37; O2SAT 93–98
[2024-12-02] MEDS: fentaNYL CITRATE INJ (*CRX) 100 MCG/2 ML VIAL IV PUSH (06:21)
[2024-12-02] MEDS: LACTATED RINGERS 1,000 ML 125 ML IV CONT (06:50)
--- NOTE | 2024-12-02 06:50 | P.PNAN_ITS ---
Anes - Initial Pre Proc Eval Date/Time: 12/02/24 06:50 Surgeon: Yasmany Toribio MD Pre Op Diagnosis: iol Patient Data Age: 39 Gender: F Height: 1.6 m Weight: 89 kg Last Vital Signs Temp 37.0 C 12/02/24 03:01 Pulse 89 12/02/24 06:46 Resp 18 12/02/24 03:01 BP 147/95 H 12/02/24 06:46 O2 Del Method Room Air 12/01/24 07:00 Allergies Allergy/AdvReac Type Severity Reaction Status Date / Time No Known Allergies Allergy Verified 11/29/24 17:50 Home Medications ?Medication ?Instructions ?Recorded ?Confirmed ?Type prenat.vits,apurva,ydg-mslw-cuygn 1 tablet PO DAILY 05/2411/29/24 History aspirin 81 mg tablet,delayed 162 mg PO DAILY 06/29/24 11/29/24 History release labetalol 100 mg tablet 100 mg PO Q12H #60 tabs 09/1011/29/24 Rx Patient hx anesthesia problems: none Family hx anesthesia problems: none Results Review: All pre-operative results and documents have been reviewed as part of the pre- operative evaluation. [facility] Past Medical History Medical History Hypertension Surgical History Surgical History S/P carpal tunnel release Family History Family History Grandparent Diabetes mellitus Hypertension Grandparent Heart disease Other Family history of elevated blood lipids Social History Social History Smoking status: Never smoker Second hand tobacco smoke exposure: No Alcohol intake: current Substance use: never Substance use type: does not use Lack of Transportation: No Lack of Food: Never True Current Housing: I Have Housing Concerned About Future Housing: No Difficulty Paying Gas/Electric Bills: No Difficulty Paying for Meds: No Currently Unemployed: No Education: Trade/Vocational Certificate Difficulty w/ Childcare or Family Care: No Spiritual care concerns: No Anes - Eval Final PreProcedure Day of Procedure 12/02/24 06:50 Patient weight: obese Heart: regular rate and rhythm Lungs: clear to auscultation Airway: Mallampati scale class II Neurological: alert and oriented Last oral intake: >/= 8 hours ASA classification: II Emergent: no Anesthetic plan: proceed Anesthesia type and monitoring: regional spinal and standard monitoring Results Review: All pre-operative results and documents have been reviewed as part of the pre- operative evaluation. Informed Consent: The patient's anesthetic plan and its attendant risks and benefits were discussed with the patient/family/POA. Questions were solicited and answers provided to the satisfaction of the patient/family/POA.
[2024-12-02] MEDS: ONDANSETRON INJ 4 MG/2 ML VIAL IV PUSH ×2 (06:55→14:48)
[2024-12-02] MEDS: ACETAMINOPHEN 500 MG TABLET 1000 MG PO (06:56)
[2024-12-02] MEDS: FAMOTIDINE 20 MG/2 ML VIAL IV PUSH (06:58)
[2024-12-02] MEDS: ceFAZolin 2 GM in SODIUM CHLORIDE 0.9% IV 50 ML 100 ML IVPB (07:12)
--- NOTE | 2024-12-02 07:14 | PM.OBPNVD ---
OB - PN: Subj Subjective Date/time seen: 12/02/24 07:14 Interval history: cat 1, cervix ext os ft int 1.5/50/-3. Recommend for failed induction. OB - PN: Obj Data Labs 12/03/24 05:15 11/29/24 17:38 OB - PN A/P Time Spent With Patient Time: Total time spent is greater than 50% in coordination of care (as documented) at patient's floor/unit and/or counseling patient:
--- NOTE | 2024-12-02 08:49 | S_PTH ---
PATIENT: Romina Cassidy LOC: [facility] U#:[id number] AGE/SX: 39/F ROOM: 282 RE11/29/[address]: Michael Leon MD : [id number] BED: 00 DIS: 12/04/2024 SPEC #: [id number] RECD: 12/02/24 10:20 STATUS: LINDY REQ #: [id number] DANIELLE: 12/02/24 08:[address]: Yasmany Toribio DEPT: [facility] Surgical RECD BY: Hope Stoner ENTERED: 12/02/24 10:21 SP TYPE: Surgical OTHR DR: Donnie Anne, Tissues: A - Placenta Procedures: Hematoxylin and Eosin Stain Gross and Microscopic Level 5
[2024-12-02] MEDS: KETOROLAC 15 MG/ML VIAL (*BKC) IV PUSH ×3 (13:13→21:57)
[2024-12-02] MEDS: ACETAMINOPHEN 325 MG TABLET 650 MG (13:16)
--- NOTE | 2024-12-02 14:00 | PC.NURSE ---
12/02/24 - 1400 - Report given to Sarika Fisher RN. Pt transferred to via stretcher and was accompanied by significant other and baby. Belongings to room with pt.
--- NOTE | 2024-12-02 14:01 | OBPPTRN ---
Patient transferred to post room #282 via stretcher. Support person present. Oriented to unit, room, information board, rooming in, admission packet and security measures. Patient verbalizes understanding.
--- NOTE | 2024-12-02 15:46 | PC.NURSE ---
1540. Breast pump provided due to infant not latching long enough at the breast, and mom at risk of decreased milk supply. Instructions given on cleaning, care, usage, that there should be no pain, pumping schedule for milk production, collection, and storage of human milk. Patient was assessed for correct placement, flange size, to pump for comfort and nipple stretching/stimulation for adequate milk production every 3 hours (8 times in 24 hours) 1-2 times at night. Parents are encouraged to record the pumping schedule on the feeding sheet.?Mother voiced understanding of the education shared along with mom/baby guide and the pump measurement, flange fit handout for additional resource information. Reported to the Primary RN.
--- NOTE | 2024-12-02 15:49 | PC.NURSE ---
1540. Introductions were made, then consulted with patient to assess needs related to . Discussed with mother her plans to feed her and the experience so far. Encouraged mother to express any questions or concerns she has regarding feedings. Advised her to call out for a latch check or if she needs assistance waking or positioning baby. Reviewed the blue feeding worksheet for required output and feeding at least 8-12 times every 24 hours. Resources provided for inpatient and outpatient services with the feeding sheet, mom/baby guide, and name/number written on the communication board. Mother voiced understanding of information and will call if there is a request for assistance. Reported to the Primary RN?
[2024-12-02] MEDS: ACETAMINOPHEN 325 MG TABLET 650 MG PO (20:10)
[2024-12-02] MEDS: SIMETHICONE 80 MG TAB.CHEW PO (20:11)
[2024-12-02] MEDS: DEXTROSE 5%/0.45% SOD CHL 1,000 ML 125 ML (20:34)
[2024-12-03] VITALS (7 sets, daily range): BP systolic 112–136; BP diastolic 65–86; PULSE 69–81; RESP 16–20; TEMP 36.2–36.8; O2SAT 95–99
[2024-12-03] MEDS: KETOROLAC 15 MG/ML VIAL (*BKC) IV PUSH (03:40)
[2024-12-03] MEDS: ACETAMINOPHEN 325 MG TABLET 650 MG PO (03:40)
[2024-12-03 06:03] LABS: Hematocrit 30.4 % (37.0-47.0); Hemoglobin 9.7 g/dL (12.0-15.0); Immature Granulocyte Percent A 0.5 % (0-0.5); Lymphocytes Absolute Auto 1.65 K/mm3 (0.9-3.2); Mean Corpuscular HGB Conc 31.9 g/dl (32-36); Mean Corpuscular Hemoglobin 28.0 pg (26-34); Mean Corpuscular Volume 87.9 fl (80-100); Nucleated Red Blood Cells Absolute Auto 0.000 K/mm3 (0.0-0.012); Nucleated Red Blood Cells Perc 0.0 % (0.0-0.2); Platelet Count Result 146 k/mm3 (150-375); Red Blood Count 3.46 M/mm3 (4.2-5.4); White Blood Count 8.0 K/mm3 (4.5-10.0)
--- NOTE | 2024-12-03 06:38 | W.PM.OBCSD ---
OB - Delivery Note Procedure Delivery date: 12/03/24 Pre-op diagnosis: Failed Induction of Labor Post-op Diagnosis: Same Induction method: Per Misoprostol Protocol, Per Pitocin Protocol and Per Cervidil Protocol Delivery monitor: External FHT Prior to decision for section, ACOG/SMFM labor guidelines were considered and discussed with the patient and staff. Decision made to proceed with the section.: Yes Procedure Performed: Primary Surgeon: Yasmany Toribio MD Anesthesia type: Spinal Description of Procedure/Findings: Male infant, apgars 8,8, [id number], OT, loose nuchal cord After informed consent, risks and benefits of the procedure was discussed with the patient. The patient was taken to the operating room . Spinal anesthesia was administered and found to be adequate, she was then prepped and draped in the usual sterile fashion. A Pfannenstiel skin incision was made with a scalpel and carried through to the underlying layer of fascia. The fascia was then nicked in the midline, extending bilaterally. The fascia was dissected off the rectus muscles bluntly and sharply, superiorly and inferiorly. The rectus muscles were in the midline, and peritoneum was identified and entered bluntly. The pelvic organs were visualized. The bladder blade was then inserted. The vesicouterine peritoneum was identified and entered sharply with Metzenbaum scissors and extended bilaterally and then the bladder flap was created digitally. The low transverse uterine incision was then made with the scalpel and extended with bilateral index fingers in a crescent-shaped fashion. The head was delivered, nuchal cord manually reduced and the rest of the infant was delivered. The cord was clamped twice and cut. The was then handed off to the awaiting pediatric staff. The placenta was then delivered manually. The uterine cavity was sponge curetted. The uterus was then exteriorized. The uterine incision was then closed with 0 vicryl in a running locked fashion. A second layer of 0 vicryl was used in an imbricating fashion for hemostasis. Posterior cul de sac was irrigated. The uterus was then returned to the abdomen. Bilateral gutters were cleared off all clots and debris. The uterine incision was noted to be hemostatic. Interceed placed on uterine incision and vertically on front of uterus. The peritoneum was approximated with 3.0 vicryl. The muscle bellies were inspected and noted to be hemostatic. The subfascial layer was noted to be hemostatic, and the fascia was closed with 0 Vicryl in a running fashion. The subcutaneous layer was then approximated with 3-0 Vicryl. The skin was closed with 4.0 vicryl on a [place] needle. Dermabond applied at incision. All instruments, needle, and lap counts were correct x3. The patient was taken to the recovery room in stable condition. Specimen: No Estimated Blood Loss: 350 Urine Output: 100 Drains: No Packing: No Pathology: None sent Complications: No immediate complications Condition: Stable Disposition: Floor [place] Baby Date of : 12/02/24 Time of : 07:40 Gestational Age by Date: 37 Weight (pounds): 8 Weight (ounces): 14 presentation: vertex position: Left Occiput Transverse Placenta delivery description: Manual Removal Cord Vessel Description: 3 Vessels, Nuchal Cord, Loose and Reduced (manually) score one minute: 8 score five minutes: 8
[2024-12-03] MEDS: SIMETHICONE 80 MG TAB.CHEW PO ×3 (08:26→16:03)
--- NOTE | 2024-12-03 08:44 | WPDANLDPN2 ---
Anes-Prog Note L&D Date/Time: 12/03/24 08:44 Comfortable throughout: labor and delivery Neuraxial method: epidural Epidural/Spinal procedure site: clean & non-tender Neuro status: Neuro function grossly intact. Cardiovascular status: normal Respiratory status: normal Airway patency: baseline Mental status: baseline Post-Op hydration status: normal Vital Signs: Last Vital Signs Temp 36.8 C 12/03/24 03:50 Pulse 75 12/03/24 03:50 Resp 20 12/03/24 03:50 BP 112/75 12/03/24 03:50 Pulse Ox 95 12/03/24 03:50 O2 Del Method Room Air 12/02/24 14:01 Pain score (VAS): 1 I/O: Intake & Output 12/02/24 12/03/24 12/03/24 23:59 07:59 15:59 Intake Total 240 Output Total 1200 1750 Balance -960 -1750 Post-procedural complaints: none Patient feedback: Patient satisfied with anesthetic care.
--- NOTE | 2024-12-03 08:47 | WPDANLDPN2 ---
Anes-Prog Note L&D Date/Time: 12/03/24 08:47 Comfortable throughout: section Neuraxial method: spinal Epidural/Spinal procedure site: clean & non-tender Neuro status: Neuro function grossly intact. Cardiovascular status: normal Respiratory status: normal Airway patency: baseline Mental status: baseline Post-Op hydration status: normal Vital Signs: Last Vital Signs Temp 36.8 C 12/03/24 03:50 Pulse 75 12/03/24 03:50 Resp 20 12/03/24 03:50 BP 112/75 12/03/24 03:50 Pulse Ox 95 12/03/24 03:50 O2 Del Method Room Air 12/02/24 14:01 Pain score (VAS): 3 I/O: Intake & Output 12/02/24 12/03/24 12/03/24 23:59 07:59 15:59 Intake Total 240 Output Total 1200 1750 Balance -960 -1750 Post-procedural complaints: none Patient feedback: Patient satisfied with anesthetic care.
--- NOTE | 2024-12-03 08:47 | WPDANLDNPN2 ---
Anes-Prog Note L&D-Neuraxial Date/Time: 12/03/24 08:47 Neuraxial medications: intrathecal PF morphine Opiod-related complaints: none Patient feedback: Patient satisfied with post-operative pain management.
--- NOTE | 2024-12-03 09:21 | P.PNOB_ITS ---
OB - PN: Subj Subjective Date/time seen: 12/03/24 09:21 Narrative: Pain OK. Tolerating diet. Would like circumcision for son. OB - PN: Obj Data Labs 12/03/24 05:15 11/29/24 17:38 Labs: Laboratory Results - last 24 hr 12/03/24 05:15 WBC 8.0 RBC 3.46 L Hgb 9.7 L Hct 30.4 L MCV 87.9 D MCH 28.0 MCHC 31.9 L RDW 14.5 Plt Count 146 L MPV 12.7 H Immature Gran % (Auto) 0.5 Neut % (Auto) 67.8 Lymph % (Auto) 20.7 Mathews % (Auto) 8.8 H Eos % (Auto) 1.8 Baso % (Auto) 0.4 Lymph # (Auto) 1.65 Mathews # (Auto) 0.7 H Eos # (Auto) 0.1 Baso # (Auto) 0.0 Abs Immat Gran (auto) 0.04 H Absolute Neuts (auto) 5.4 Absolute Nucleated RBC 0.000 Nucleated RBC % 0.0 OB - PN A/P Plan day: 1 Comments: A: POD#1, doing well. P: Reviewed circumcision - will hold off until tomorrow per peds recommendation. Otherwise, routine care. Exam 2 Narrative: AVSS I/O OK ABD soft, nontender, fundus firm. Incision c/d/i. EXT nontender
[2024-12-03] MEDS: ACETAMINOPHEN 500 MG TABLET 1000 MG PO ×3 (10:08→22:00)
[2024-12-03] MEDS: IBUPROFEN 600 MG TABLET PO ×3 (10:09→22:00)
--- NOTE | 2024-12-03 10:20 | PC.NURSE ---
Parents attempting to breastfeed after formula supplementation due to low glucose. Baby took 13ml of formula. He will latch to the breast and suck 2-3 times before holding the nipple in his mouth and refusing to suck. We tried for several minutes to wake him without any success. Mom is supported to keep him skin to skin and try again soon or to move on to pumping now and feed again in 3 hours, offering the breast first. Moms state that last night baby fed well off and on at the breast. Discussed that will hopefully be awake and eager at the next feeding time and will latch better. Center Machine Set Up Operator recommends continued supplementation with formula at this time. Infant has lost 7% of his weight in 24 hours. Patient was induced and ultimately had a , indicating mother may have received a large volume of IV fluids. Discussed with primary RN.
[2024-12-03] MEDS: LIDOCAINE 5% PATCH 1 PATCH TRANSDERM (12:31)
[2024-12-03] MEDS: DOCUSATE SODIUM 100 MG CAPSULE PO (16:03)
[2024-12-04 04:05] VITALS: BP 134/86; PULSE 72
[2024-12-04] MEDS: IBUPROFEN 600 MG TABLET PO ×2 (04:05→09:45)
[2024-12-04] MEDS: ACETAMINOPHEN 500 MG TABLET 1000 MG PO ×2 (04:05→09:45)
[2024-12-04 08:20] VITALS: BP 135/81; PULSE 72; RESP 18; TEMP 36.5; O2SAT 97
[2024-12-04] MEDS: DOCUSATE SODIUM 100 MG CAPSULE PO (09:45)
[2024-12-04] MEDS: MULTIVIT/MIN/PREN/FOL AC/IRON TABLET 1 TAB PO (09:45)
[2024-12-04] MEDS: SIMETHICONE 80 MG TAB.CHEW PO ×2 (09:45→12:00)
--- NOTE | 2024-12-04 09:56 | PM.OBDSVD ---
DS: Admitting Diagnosis Discharge Date 12/04/2024 Admitting Diagnosis DS: Discharge Diagnosis Discharge Diagnosis (1) , delivered: Code(s): O80 - Encounter for full-term uncomplicated delivery Status: Acute OB - DS: Summary OB Procedures : None OB Procedures Intrapartum: OB Procedures: : None Peripartum Data Procedures: Procedures Operation Date: 12/02/24 07:00 Actual Procedure Side Surgeon p Section Bilateral Yasmany Toribio MD Time Spent with Patient Time attestation: Total time spent providing and/or coordinating discharge services: DS: Data Data Completed and Pending Completed studies during hospitalization: Pending at discharge 12/02/24 08:49 Surgical [PTH] Routine Discharge Plan Discharge Discharging Clinician: Michael Leon Patient Disposition: Home Activity: may shower, no straining, no driving and pelvic rest Diet: as tolerated Wound Care Instructions: incision open to air Patient Instructions: Antibiotic Form Patient Language: Prydeinig Stand Alone Forms: General Discharge Information Follow-up/Referrals: Yasmany Toribio MD [Physician, [employer] TECHNICIAN] - 4 Weeks Discharge Medications: New oxycodone 5 mg Tablet 5 mg PO Q4H PRN (Reason: Pain Rated 4-6) Qty: 30 0RF ibuprofen 600 mg Tablet 600 mg PO Q6HR Qty: 30 0RF Continued labetalol 100 mg tablet 100 mg PO Q12H Qty: 60 0RF prenat.vits,apurva,zyw-kwlx-wvabe Tablet 1 tablet PO DAILY Rx Instructions: as directed Discontinued aspirin 81 mg tablet,delayed release (DR/EC) 162 mg PO DAILY Date of admission: 11/29/24 17:02 Primary Care Provider: DayanaDonnie Admitting Provider: Yasmany Toribio Attending physician on admission: Yasmany Toribio Condition: Stable
[2024-12-06 09:10] VITALS: BP 139/80; PULSE 78; RESP 18; TEMP 36.8; O2SAT 100
--- NOTE | 2024-12-15 22:10 | WPDHPUPDATE1 ---
History and Physical Update Update Date/Time: 12/15/24 22:10 History and Physical has been reviewed, including an updated exam of the patient. There are NO changes in the patient's condition. Risks, benefits, and alternatives have been discussed and questions answered. Patient agrees to proceed with procedure.
== END 2024-12-04 13:55 | disposition home or self-care (01) | DRG 788 ==
LOC: ANHOB2 12-04 09:59 → ANHLDR 12-07 08:01 → ANHOB2 12-07 08:01
PROVIDERS: Obstetrics & Gynecology; Admitting Provider Obstetrics & Gynecology; PCP Family Medicine; Visit Provider Obstetrics & Gynecology
PROC: 10D00Z1 Extraction of Products of Conception, Low, Open Approach (ICD-10-PCS; CPT 59514; principal; 2024-12-02 07:00)
DX: O61.9 Failed induction of labor, unspecified (principal); O14.04 Mild to moderate pre-eclampsia, complicating childbirth; O69.81X0 Labor and delivery complicated by cord around neck, without compression, not applicable or unspecified; Z3A.38 38 weeks gestation of pregnancy; Z37.0 Single live birth
CPT/HCPCS: 36415; 80053; 84550; 85025; 86593; 86850; 86900; 86901; 88307; J0690; A9270; J1885; J2274; J2405; J2590; J3010; J7120